=== PATIENT | female | born 1950 | race Caucasian/White ===

== ENCOUNTER → 2016-07-27 | Outpatient (CLI) | payer BC | END | disposition home or self-care (01) | LOC: C.PAPS 14:02 | PROVIDERS: ATTEND Obstetrics & Gynecology | DX: Z01.419 Encounter for gynecological examination (general) (routine) without abnormal findings (principal) ==

== ENCOUNTER → 2016-07-29 | Outpatient (CLI) | payer BC ==
--- NOTE | 2016-08-01 14:25 | MAMMOGRAPHY REPORT ---
BILATERAL DIGITAL SCREENING MAMMOGRAM WITH CAD: 07/29/2016 CLINICAL HISTORY: Routine screening. Patient has no complaints. TECHNIQUE: Current study was also evaluated with a Computer Aided Detection (CAD) system. Bilatera l CC and MLO views were obtained. COMPARISON: Comparison is made to exams dated: 03/10/2014 mammogram, 01/23/2013 mammogram, 01/18/20 12 mammogram, 01/18/2012 ultrasound, 01/11/2012 mammogram, and 12/08/2010 mammogram. BREAST COMPOSITION: There are scattered areas of fibroglandular density in both breasts. FINDINGS: No suspicious masses, calcifications, or areas of architectural distortion are noted in e ither breast. There has been no significant interval change compared to prior exams. Bilateral asym metries are stable, including an asymmetry in the right upper outer quadrant and asymmetry in the le ft superior breast which are stable dating back to at least the 2010 and 2011 exams. IMPRESSION: ACR BI-RADS CATEGORY 2: BENIGN There is no mammographic evidence of malignancy. A 1 year screening mammogram is recommended. The p atient will receive written notification of the results. Approximately 10% of breast cancers are not detected with mammography. A negative mammographic repor t should not delay biopsy if a clinically suggestive mass is present. Krissy Ferrell M.D. ah/:07/29/2016 15:23:40 Rn Picu: Delfino JOHNSON)(Shahrzad), [facility] letter sent: Normal 1/2 BI-RADS Code: ACR BI-RADS Category 2: Benign
== END | disposition home or self-care (01) ==
LOC: C.MAMM 10:00
PROVIDERS: ATTEND Obstetrics & Gynecology
DX: Z12.31 Encounter for screening mammogram for malignant neoplasm of breast (principal)

== ENCOUNTER → 2017-08-01 | Outpatient (CLI) | payer OTHER, BC ==
--- NOTE | 2017-08-01 15:12 | MAMMOGRAPHY REPORT ---
BILATERAL DIGITAL SCREENING MAMMOGRAM TOMOSYNTHESIS WITH CAD: 08/01/2017 CLINICAL HISTORY: Routine screening. Patient has no complaints. TECHNIQUE: Breast tomosynthesis in addition to standard 2D mammography was performed. Current study was also evaluated with a Computer Aided Detection (CAD) system. COMPARISON: Comparison is made to exams dated: 07/29/2016 mammogram, 07/27/2015 mammogram - [facility], 03/10/2014 mammogram, 01/23/2013 mammogram, 01/18/2012 mammogram, and 01/18/2012 ul trasound. BREAST COMPOSITION: There are scattered areas of fibroglandular density in both breasts. FINDINGS: The parenchymal pattern is unchanged. No developing mass, architectural distortion or clus ter of suspicious microcalcifications is seen in either breast. IMPRESSION: ACR BI-RADS CATEGORY 2: BENIGN There is no mammographic evidence of malignancy. A 1 year screening mammogram is recommended. The pa tient will receive written notification of the results. Approximately 10% of breast cancers are not detected with mammography. A negative mammographic report should not delay biopsy if a clinically suggestive mass is present. Azra Cintron M.D. ay/:08/01/2017 11:55:30 Heater Engineer Helper: Fernie Bautista M, [facility] letter sent: Normal 1/2 BI-RADS Code: ACR BI-RADS Category 2: Benign
== END | disposition home or self-care (01) ==
LOC: C.MAMM 10:00
PROVIDERS: ATTEND Obstetrics & Gynecology
DX: Z12.31 Encounter for screening mammogram for malignant neoplasm of breast (principal)

== ENCOUNTER → 2017-08-02 | Outpatient (CLI) | payer OTHER, BC | END | disposition home or self-care (01) | LOC: C.PAPS 11:54 | PROVIDERS: ATTEND Obstetrics & Gynecology | DX: Z12.4 Encounter for screening for malignant neoplasm of cervix (principal) ==

== ENCOUNTER 2024-05-24 17:37 | Inpatient (IN) ==
--- NOTE | 2024-05-24 18:30 | XRay Report ---
EXAM: Portable AP chest radiograph TECHNIQUE: AP portable radiograph of the chest was obtained. INDICATION: Shortness of breath Comparison: None FINDINGS: LINES and TUBES: None CARDIOVASCULAR: Cardiac silhouette is enlarged in size. LUNGS/PLEURA: Mild pulmonary vascular congestion. Chronic interstitial lung changes. No focal consolidation identified. No significant pleural fluid. No discernible pneumothorax. OSSEOUS/OTHER: No displaced acute osseous process identified. IMPRESSION: Mild congestive changes of the cardiovascular system. Electronically signed by Paul Dorantes 05-24-2024 6:30 PM
[2024-05-24 18:41] LABS: Basophils # (auto) 0.03 K/uL (0.00-0.20); Basophils % (auto) 0.4 %; Eosinophils # (auto) 0.12 K/uL (0.00-0.50); Eosinophils % (auto) 1.8 %; Hematocrit (blood only) 38.8 % (37.0-47.0); Hemoglobin 12.9 g/dl (12.0-16.0); Immature Granulocytes # (auto) 0.03 K/uL (0.01-0.20); Immature Granulocytes % (auto) 0.4 %; Lymphocytes # (auto) 1.59 K/uL (1.20-3.40); Lymphocytes % (auto) 23.3 %; Mean Corpuscular Hemoglobin 31.2 pg (25.0-34.0); Mean Corpuscular Hgb Conc 33.2 g/dL (32.0-36.0); Mean Corpuscular Volume 93.9 fL (80.0-100.0); Mean Platelet Volume 9.9 fL (9.4-12.4); Monocytes # (auto) 0.55 K/uL (0.11-0.59); Monocytes % (auto) 8.1 %; Platelet Count 195 K/uL (130-400); RDW Coefficient of Variation 13.6 % (11.5-14.5); RDW Standard Deviation 46.6 fL (36.4-46.3); Red Blood Count 4.13 M/uL (4.20-5.40); White Blood Count 6.82 K/ul (4.8-10.8)
[2024-05-24 18:48] LABS: Albumin Globulin Ratio 2.1 (0.9-2); BUN Creatinine Ratio 17.1 (10-20); Calcium 10.5 mg/dl (8.6-10.3); Creatinine Clr Calc Pharmacy 34.4 ml/min; Globulin 2.4 gm/dl (2.5-4.0); Potassium 4.3 mmol/L (3.5-5.1); Total Protein 7.4 gm/dl (6.0-8.3)
[2024-05-24 19:13] LABS: Adenovirus PCR Not Detected (NotDetected); Bordetella parapertussis PCR Not Detected (NotDetected); Bordetella pertussis PCR Not Detected (NotDetected); Chlamydia pneumoniae PCR Not Detected (NotDetected); Coronavirus 229E PCR Not Detected (NotDetected); Coronavirus CoV-2 (COVID19)PCR Not Detected (NotDetected); Coronavirus HKU1 PCR Not Detected (NotDetected); Coronavirus NL63 PCR Not Detected (NotDetected); Coronavirus OC43PCR Not Detected (NotDetected); Human Metapneumovirus PCR Not Detected (NotDetected); Influenza A PCR Not Detected (NotDetected); Influenza B PCR Not Detected (NotDetected); Mycoplasma pneumoniae PCR Not Detected (NotDetected); Parainfluenza Virus 1 PCR Not Detected (NotDetected); Parainfluenza Virus 2 PCR Not Detected (NotDetected); Parainfluenza Virus 3 PCR Not Detected (NotDetected); Parainfluenza Virus 4 PCR Not Detected (NotDetected); Respiratory Syncytial VirusPCR Not Detected (NotDetected); Rhinovirus/Enterovirus PCR Not Detected (NotDetected)
--- NOTE | 2024-05-24 20:52 | Emergency Department Note ---
Impression & Plan Bradycardia, SOB (shortness of breath), Junctional bradycardia, Congestive heart failure ED Provider Note NAME: URSULA VARGAS AGE: 73 SEX: F : 1950 ARRIVES VIA: Walk-In INFORMANT: Patient, ED PROVIDER(S): Dusty Jarquin MD CHIEF COMPLAINT: Weakness, shortness of breath HPI: This is a 73-year-old female presenting for weakness/shortness of breath. Patient states with the past 1 week she has noted increasing difficulty with ambulation. She notes exertional dyspnea. She was referred here from urgent care for a "lousy O2 saturation ". She notes no nausea or vomiting. She has no shortness of breath without fevers. Does not feel like she is sick. She has not had a sick contacts either. No chest pain, leg swelling or pleurisy. ROS: See above HPI for pertinent positives & negatives. A total of 10 systems reviewed and were otherwise negative. PAST MEDICAL HISTORY: See Below PAST SURGICAL HISTORY: See Below FAMILY HISTORY: See Below SOCIAL HISTORY: See Below HOME MEDICATIONS: See Below ALLERGIES: See Below VITALS: See Below PHYSICAL EXAMINATION: General: resting comfortably in no acute distress Head: Normocephalic and atraumatic Eyes: Normal inspection, extraocular muscles intact Ear, nose, throat: Normal external exam Neck: Normal range of motion Respiratory: lungs clear to auscultation bilaterally Cardiovascular: Bradycardic regular rate/rhythm, no murmur GI: soft, nontender, no guarding or rebound Extremities: nontender, moves all extremities Neuro: The patient awake and alert, appropriately conversive, no focal deficits, symmetric faces Skin: Warm, dry, and intact MEDICAL DECISION MAKING: This is a 71-year-old female present for shortness breath/weakness. Patient appears to be in junctional rhythm. She does mention this is chronic however she has not had symptoms from this. Her heart rates between 29 and 40. -ECG independently interpreted by me with junctional rhythm at a rate of 31, normal QRS, normal QTc, no ST segment elevations consistent with STEMI criteria -Chest x-ray shows congestion -Bloodwork is reviewed showing no significant leukocytosis, anemia, electrolyte or creatinine abnormality -At this time patient has junctional rhythm, unclear if this is related to her significant shortness of breath. Due to the current symptoms, will admit as she has junctional rhythm, shortness of breath, congestion changes on CXR Differential diagnosis: Bradycardia, heart failure, CHF, PE, ACS Independent History obtained from: Diagnostics interpreted by me: ECG: See above Cardiac Monitoring: An order was placed for continuous cardiac monitoring. The monitor shows a rate of 31 and a junctional rhythm. Past Med/Surg History Problem List (Updated 05/25/24 @ 01:18 by Dusty Jarquin MD) Congestive heart failure (Acute) Junctional bradycardia (Acute) Bradycardia (Acute) SOB (shortness of breath) (Acute) Social History Smoking Status: Never smoker Preferred Language: Faroese Feels Safe at Home: Yes Home Meds Home Medications Medication Instructions Recorded Confirmed aripiprazole 20 mg tablet 20 mg PO DAILY 05/24/24 05/24/24 fluoxetine 20 mg capsule 20 mg PO DAILY 05/24/24 05/24/24 furosemide 20 mg tablet 20 mg PO QAM 05/24/24 05/24/24 glucosamine sulf dipot 1 cap PO DAILY 05/24/24 05/24/24 chlr,msm,chond 550 mg-C 30 mg-elvie 1 mg capsule (Glucosamine Chondroitin) lamotrigine 200 mg tablet 200 mg PO HS 05/24/24 05/24/24 levothyroxine 88 mcg tablet 88 mcg PO QAM 05/24/24 05/24/24 melatonin 1 mg tablet 1 mg PO HS PRN Sleep 05/24/24 05/24/24 olmesartan 40 mg tablet 40 mg PO DAILY 05/24/24 05/24/24 timolol maleate 0.5 % eye drops 2 drp ophthalmic (eye) DAILY 05/24/24 05/24/24 Results & Data (ED) Vital Signs Vital Signs - 24 hr 05/24/24 17:51 05/24/24 18:30 05/24/24 18:32 Temperature 36.3 C L Temperature Source Temporal Artery Scan Pulse Rate 39 L 37 L Pulse Rate [Apical] Pulse Rate from SpO2 Sensor Respiratory Rate 18 16 Respiratory Effort / Characteristics Non-Labored Spontaneous SOB on Exertion Respiratory Depth Normal Respiratory Pattern Regular Blood Pressure 175/79 H 179/88 H Blood Pressure [Right Arm] Blood Pressure Mean 111 126 Blood Pressure Mean [Right Arm] Pulse Oximetry 96 Oxygen Delivery Method Room Air Sepsis Recent Fever Within 48 Hours No Sepsis New/Unexplained Change in Mental Status No Sepsis Action Taken by Nursing No Action Required 05/24/24 18:32 02/28/25 18:45 05/24/24 18:46 Temperature Temperature Source Pulse Rate 33 L 39 L Pulse Rate [Apical] Pulse Rate from SpO2 Sensor 38 L Respiratory Rate 16 Respiratory Effort / Characteristics Respiratory Depth Respiratory Pattern Blood Pressure 179/91 H Blood Pressure [Right Arm] Blood Pressure Mean 143 Blood Pressure Mean [Right Arm] Pulse Oximetry 97 Oxygen Delivery Method Room Air Sepsis Recent Fever Within 48 Hours Sepsis New/Unexplained Change in Mental Status Sepsis Action Taken by Nursing 05/24/24 19:38 05/24/24 19:38 05/24/24 19:54 Temperature Temperature Source Pulse Rate 33 L Pulse Rate [Apical] 30 L Pulse Rate from SpO2 Sensor Respiratory Rate 18 20 Respiratory Effort / Characteristics Non-Labored Spontaneous Respiratory Depth Normal Respiratory Pattern Regular Blood Pressure Blood Pressure [Right Arm] 121/55 L Blood Pressure Mean Blood Pressure Mean [Right Arm] 77 Pulse Oximetry 94 94 93 Oxygen Delivery Method Room Air Room Air Room Air Sepsis Recent Fever Within 48 Hours Sepsis New/Unexplained Change in Mental Status Sepsis Action Taken by Nursing 05/24/24 21:00 Temperature Temperature Source Pulse Rate Pulse Rate [Apical] 31 L Pulse Rate from SpO2 Sensor Respiratory Rate 18 Respiratory Effort / Characteristics Non-Labored Spontaneous Respiratory Depth Normal Respiratory Pattern Regular Blood Pressure Blood Pressure [Right Arm] 143/71 H Blood Pressure Mean Blood Pressure Mean [Right Arm] 95 Pulse Oximetry 98 Oxygen Delivery Method Room Air Sepsis Recent Fever Within 48 Hours Sepsis New/Unexplained Change in Mental Status Sepsis Action Taken by Nursing Laboratory Data 05/24/24 18:10 05/24/24 18:10 Lab Results 05/24/24 05/24/24 Range/Units 18:10 18:16 WBC 6.82 (4.8-10.8) K/ul RBC 4.13 L (4.20-5.40) M/uL Hgb 12.9 (12.0-16.0) g/dl Hct 38.8 (37.0-47.0) % MCV 93.9 (80.0-100.0) fL MCH 31.2 (25.0-34.0) pg MCHC 33.2 (32.0-36.0) g/dL RDW Std Deviation 46.6 H (36.4-46.3) fL RDW Coeff of Mauricio 13.6 (11.5-14.5) % Plt Count 195 (130-400) K/uL MPV 9.9 (9.4-12.4) fL Immature Gran % (Auto) 0.4 % Neut % (Auto) 66.0 % Lymph % (Auto) 23.3 % [place] % (Auto) 8.1 % Eos % (Auto) 1.8 % Baso % (Auto) 0.4 % Neut # (Auto) 4.50 (1.40-6.50) K/uL Lymph # (Auto) 1.59 (1.20-3.40) K/uL [place] # (Auto) 0.55 (0.11-0.59) K/uL Eos # (Auto) 0.12 (0.00-0.50) K/uL Baso # (Auto) 0.03 (0.00-0.20) K/uL Immature Gran # (Auto) 0.03 (0.01-0.20) K/uL Sodium 135 L (136-145) mmol/L Potassium 4.3 (3.5-5.1) mmol/L Chloride 100 (98-107) mmol/L Carbon Dioxide 28 (21-32) mmol/L Anion Gap 7 (3-11) BUN 21 (6-23) mg/dl Creatinine 1.23 H (0.6-1.2) mg/dl Est Cr Clr Drug Dosing 34.4 ml/min eGFR 46.69 BUN/Creatinine Ratio 17.1 (10-20) Glucose 94 (70-99(Fasting)) mg/dl Calcium 10.5 H (8.6-10.3) mg/dl Magnesium 2.2 (1.7-2.4) mg/dl Total Bilirubin 1.0 (0.2-1.0) mg/dl AST 29 (13-39) U/L ALT 30 (7-52) U/L Alkaline Phosphatase 114 H (34-104) U/L Troponin I High Sens 22.2 H (0-14) pg/ml Total Protein 7.4 (6.0-8.3) gm/dl Albumin 5.0 (3.4-5.0) gm/dl Globulin 2.4 L (2.5-4.0) gm/dl Albumin/Globulin Ratio 2.1 H (0.9-2) TSH 4.661 H (0.300-4.500) uIu/ml Free T4 1.20 (0.61-1.60) ng/dl Adenovirus (PCR) Not Detected (NotDetected) B. pertussis DNA (PCR) Not Detected (NotDetected) B.parapertussis DNA PCR Not Detected (NotDetected) C. pneumoniae DNA (PCR) Not Detected (NotDetected) Coronavirus OC43 (PCR) Not Detected (NotDetected) Coronavirus HKU1 (PCR) Not Detected (NotDetected) Coronavirus 229E (PCR) Not Detected (NotDetected) SARS-CoV-2 (PCR) Not Detected (NotDetected) Coronavirus NL63 (PCR) Not Detected (NotDetected) Human Metapneumovir PCR Not Detected (NotDetected) Influenza Type A (PCR) Not Detected (NotDetected) Influenza Type B (PCR) Not Detected (NotDetected) M. pneumoniae (PCR) Not Detected (NotDetected) Parainfluenza 1 (PCR) Not Detected (NotDetected) Parainfluenza 2 (PCR) Not Detected (NotDetected) Parainfluenza 3 (PCR) Not Detected (NotDetected) Parainfluenza 4 (PCR) Not Detected (NotDetected) RSV (PCR) Not Detected (NotDetected) Entero/Rhino (PCR) Not Detected (NotDetected) Administered Medications Ioversol (Optiray 320 125ml) 82 ml IV ONCE ONE Stop: 05/25/24 00:58 Last Admin: 05/25/24 00:57 Dose: 82 ml Documented By: PLW Imaging Data Radiologist's Impression: Chest X-Ray 05/24/24 17:56 EXAM: Portable AP chest radiograph TECHNIQUE: AP portable radiograph of the chest was obtained. INDICATION: Shortness of breath Comparison: None FINDINGS: LINES and TUBES: None CARDIOVASCULAR: Cardiac silhouette is enlarged in size. LUNGS/PLEURA: Mild pulmonary vascular congestion. Chronic interstitial lung changes. No focal consolidation identified. No significant pleural fluid. No discernible pneumothorax. OSSEOUS/OTHER: No displaced acute osseous process identified. IMPRESSION: Mild congestive changes of the cardiovascular system. Electronically signed by Paul Dorantes 05-24-2024 6:30 PM Discharge Plan Visit Data Chief Complaint: Shortness of Breath/Dyspnea Stated Complaint: SOB, REFERRED BY URGENT CARE FOR LOW O2 ED Provider: Dusty Jarquin Discharge Problem: Bradycardia, SOB (shortness of breath), Junctional bradycardia, Congestive heart failure
[2024-05-24 22:44] LABS: Magnesium 2.2 mg/dl (1.7-2.4)
[2024-05-24 22:51] LABS: Troponin I High Sensitivity 22.2 pg/ml (0-14)
--- NOTE | 2024-05-24 22:52 | History & Physical Report ---
Date of Service May 24, 2024 Assessment & Plan (1) SOB (shortness of breath): Plan: 73-year-old female with past medically history significant for hypothyroidism, prediabetes, hypertension, bradycardia, rectal prolapse, bilateral low-tension glaucoma mild stage, depression presents with shortness of breath. Patient states since last Monday was feeling short of breath. Climbing half flight of stairs making her short of breath. She is still going to the gym. Able to walk okay in the gym. Today she was in the gym and did some light weights and felt very exhausted. Denies any cough. Denies fevers. No runny nose or sore throat. No headache. No dizziness. Since last couple of weeks she has some blurred vision but seems it is getting better. No runny nose or sore throat. Denies any chest pain. No nausea. No abdominal pain. Appetite is okay. No difficulty swallowing. Normal bladder movements. Patient states since last few months she is having diarrhea in the morning 3-4 times. And she is almost taking loperamide every day. States she has chronic bradycardia with junctional rhythm. As per records since 2017 she was diagnosed with asymptomatic junctional rhythm. Thought to be from long use of lithium. With discont inuation of lithium depression worsened and also heart rates did not improved so lithium was restarted. But currently she is on Lamictal and lithium is stopped. As per the records she declined permanent pacemaker placement in the past. Her resting heart rates usually In the 40s and sometimes 30s per records.But with activity heart rates improve as per patient. Shortness of breath Since last Monday Chest x-ray possible congestion No obvious edema on exam Will follow BNP Will follow troponins Telemetry Echo Junctional bradycardia Seems chronic Usually resting heart rates in 30s and 40s and improves with activity Thought to be from lithium Currently off of lithium Telemetry Will follow echo Cardiac consult came in am for further recommendations Hypothyroidism On Synthyroid Will follow TSH [facility] Creatinine 1.2 Baseline creatinine 1-1.1 Will follow repeat labs If worsening will hold Lasix and olmesartan Hypertension On Lasix and olmesartan Will monitor Prediabetes Will follow HbA1c levels Depression On aripiprazole and Lamictal DVT prophylaxis SCDs for now Disposition Telemetry Full code Addendum; D dmier is 700. CTA chest done and shows no PE.Shows possible PAH. Also subsegmental collapse of lower lobes and possible altered perfusion/small vessel disease. Will also follow Doppler. History of Present Illness Chief Complaint: Shortness of breath Primary Care Provider: Zafar Meza DO 73-year-old female with past medically history significant for hypothyroidism, prediabetes, hypertension, bradycardia, rectal prolapse, bilateral low-tension glaucoma mild stage, depression presents with shortness of breath. Patient states since last Monday was feeling short of breath. Climbing half flight of stairs making her short of breath. She is still going to the gym. Able to walk okay in the gym. Today she was in the gym and did some light weights and felt very exhausted. Denies any cough. Denies fevers. No runny nose or sore throat. No headache. No dizziness. Since last couple of weeks she has some blurred vision but seems it is getting better. No runny nose or sore throat. Denies any chest pain. No nausea. No abdominal pain. Appetite is okay. No difficulty swallowing. Normal bladder movements. Patient states since last few months she is having diarrhea in the morning 3-4 times. And she is almost taking loperamide every day. States she has chronic bradycardia with junctional rhythm. As per records since 2017 she was diagnosed with asymptomatic junctional rhythm. Thought to be from long use of lithium. With discontinuation of lithium depression worsened and also heart rates did not improved so lithium was restarted. But currently she is on Lamictal and lithium is stopped. As per the records she declined permanent pacemaker placement in the past. Her resting heart rates usually In the 40s and sometimes 30s per records.But with activity heart rates improve as per patient. Past medical history. As mentioned above. Past surgical history. Colonoscopy. EGD. Excision of rectal prolapse. Robotic laparoscopic proctopexy. Social history. . No smoking. Currently no alcohol use. No drug use. Family history. Mother had bipolar disorder. Brother has gout. Allergies Allergy/AdvReac Type Severity Reaction Status Date / Time griseofulvin Allergy Mild Rash Verified 05/25/24 02:00 Home Medications Medication Instructions Recorded Confirmed Type aripiprazole 20 mg tablet 20 mg PO DAILY 05/24/24 05/24/24 History fluoxetine 20 mg capsule 20 mg PO DAILY 05/24/24 05/24/24 History furosemide 20 mg tablet 20 mg PO QAM 05/24/24 05/24/24 History glucosamine sulf dipot 1 cap PO DAILY 05/24/24 05/24/24 History chlr,msm,chond 550 mg-C 30 mg-elvie 1 mg capsule (Glucosamine Chondroitin) lamotrigine 200 mg tablet 200 mg PO HS 05/24/24 05/24/24 History levothyroxine 88 mcg tablet 88 mcg PO QAM 05/24/24 05/24/24 History melatonin 1 mg tablet 1 mg PO HS PRN Sleep 05/24/24 05/24/24 History olmesartan 40 mg tablet 40 mg PO DAILY 05/24/24 05/24/24 History timolol maleate 0.5 % eye drops 2 drp ophthalmic (eye) DAILY 05/24/24 05/24/24 History Past Med/Surg History Problem List (Updated 05/25/24 @ 01:18 by Dusty Jarquin MD) Congestive heart failure (Acute) Junctional bradycardia (Acute) Bradycardia (Acute) SOB (shortness of breath) (Acute) Social History Smoking Status: Never smoker Hx Alcohol Use: Yes Hx Substance Use: No Preferred Language: [place] Communication Ability: Effective Glass Cut Off Tender Required: No Beliefs That Will Affect Care: Protestant Protestant Beliefs: Christianity Current Living Situation: Spouse Feels Safe at Home: Yes Safety Concerns: Feels Safe At This Time Review of Systems Review of Systems: All systems reviewed & are unremarkable except as noted in HPI & below Physical Exam Physical Exam: General- Not in distress Head- atraumatic Eyes- PERRL. ENT- oropharynx clear Neck- supple, no JVD. Lungs- clear to auscultation no wheezing or crackles Heart- regular rhythm;bradycardia, no murmur, . Abdomen- normal bowel sounds, soft, nontender, no distension Extremities- no pretibial edema, no erythema seen Neuro- alert, oriented PERRL, no facial palsy; no dysarthria; moves extremities. Results & Data Results & Data Vital Signs (Past 12 Hours) Vital Signs Temp Pulse Pulse Resp BP BP Pulse Ox 05/24/24 21:00 31 L 18 143/71 H 98 05/24/24 19:54 30 L 20 121/55 L 93 05/24/24 19:38 33 L 18 94 05/24/24 19:38 94 05/24/24 18:46 179/91 H 05/24/24 18:45 39 L 16 97 05/24/24 18:32 33 L 05/24/24 18:32 179/88 H 05/24/24 18:30 37 L 16 05/24/24 17:51 36.3 C L 39 L 18 175/79 H 96 O2 Del Method 05/24/24 21:00 Room Air 05/24/24 19:54 Room Air 05/24/24 19:38 Room Air 05/24/24 19:38 Room Air 05/24/24 18:46 05/24/24 18:45 Room Air 05/24/24 18:32 05/24/24 18:32 05/24/24 18:30 05/24/24 17:51 Room Air Diagnostic Findings Laboratory Results WBC 6.82 K/ul (4.8-10.8) 05/24/24 18:10 RBC 4.13 M/uL (4.20-5.40) L 05/24/24 18:10 Hgb 12.9 g/dl (12.0-16.0) 05/24/24 18:10 Hct 38.8 % (37.0-47.0) 05/24/24 18:10 MCV 93.9 fL (80.0-100.0) 05/24/24 18:10 MCH 31.2 pg (25.0-34.0) 05/24/24 18:10 MCHC 33.2 g/dL (32.0-36.0) 05/24/24 18:10 RDW Std Deviation 46.6 fL (36.4-46.3) H 05/24/24 18:10 RDW Coeff of Mauricio 13.6 % (11.5-14.5) 05/24/24 18:10 Plt Count 195 K/uL (130-400) 05/24/24 18:10 MPV 9.9 fL (9.4-12.4) 05/24/24 18:10 Immature Gran % (Auto) 0.4 % 05/24/24 18:10 Neut % (Auto) 66.0 % 05/24/24 18:10 Lymph % (Auto) 23.3 % 05/24/24 18:10 Briscoe % (Auto) 8.1 % 05/24/24 18:10 Eos % (Auto) 1.8 % 05/24/24 18:10 Baso % (Auto) 0.4 % 05/24/24 18:10 Neut # (Auto) 4.50 K/uL (1.40-6.50) 05/24/24 18:10 Lymph # (Auto) 1.59 K/uL (1.20-3.40) 05/24/24 18:10 Briscoe # (Auto) 0.55 K/uL (0.11-0.59) 05/24/24 18:10 Eos # (Auto) 0.12 K/uL (0.00-0.50) 05/24/24 18:10 Baso # (Auto) 0.03 K/uL (0.00-0.20) 05/24/24 18:10 Immature Gran # (Auto) 0.03 K/uL (0.01-0.20) 05/24/24 18:10 Sodium 135 mmol/L (136-145) L 05/24/24 18:10 Potassium 4.3 mmol/L (3.5-5.1) 05/24/24 18:10 Chloride 100 mmol/L (98-107) 05/24/24 18:10 Carbon Dioxide 28 mmol/L (21-32) 05/24/24 18:10 Anion Gap 7 (3-11) 05/24/24 18:10 BUN 21 mg/dl (6-23) 05/24/24 18:10 Creatinine 1.23 mg/dl (0.6-1.2) H 05/24/24 18:10 Est Cr Clr Drug Dosing 34.4 ml/min 05/24/24 18:10 eGFR 46.69 05/24/24 18:10 BUN/Creatinine Ratio 17.1 (10-20) 05/24/24 18:10 Glucose 94 mg/dl (70-99(Fasting)) 05/24/24 18:10 Calcium 10.5 mg/dl (8.6-10.3) H 05/24/24 18:10 Magnesium 2.2 mg/dl (1.7-2.4) 05/24/24 18:10 Total Bilirubin 1.0 mg/dl (0.2-1.0) 05/24/24 18:10 AST 29 U/L (13-39) 05/24/24 18:10 ALT 30 U/L (7-52) 05/24/24 18:10 Alkaline Phosphatase 114 U/L (34-104) H 05/24/24 18:10 Troponin I High Sens 22.2 pg/ml (0-14) H 05/24/24 18:10 Total Protein 7.4 gm/dl (6.0-8.3) 05/24/24 18:10 Albumin 5.0 gm/dl (3.4-5.0) 05/24/24 18:10 Globulin 2.4 gm/dl (2.5-4.0) L 05/24/24 18:10 Albumin/Globulin Ratio 2.1 (0.9-2) H 05/24/24 18:10 Adenovirus (PCR) Not Detected (NotDetected) 05/24/24 18:16 B. pertussis DNA (PCR) Not Detected (NotDetected) 05/24/24 18:16 B.parapertussis DNA PCR Not Detected (NotDetected) 05/24/24 18:16 C. pneumoniae DNA (PCR) Not Detected (NotDetected) 05/24/24 18:16 Coronavirus OC43 (PCR) Not Detected (NotDetected) 05/24/24 18:16 Coronavirus HKU1 (PCR) Not Detected (NotDetected) 05/24/24 18:16 Coronavirus 229E (PCR) Not Detected (NotDetected) 05/24/24 18:16 SARS-CoV-2 (PCR) Not Detected (NotDetected) 05/24/24 18:16 Coronavirus NL63 (PCR) Not Detected (NotDetected) 05/24/24 18:16 Human Metapneumovir PCR Not Detected (NotDetected) 05/24/24 18:16 Influenza Type A (PCR) Not Detected (NotDetected) 05/24/24 18:16 Influenza Type B (PCR) Not Detected (NotDetected) 05/24/24 18:16 M. pneumoniae (PCR) Not Detected (NotDetected) 05/24/24 18:16 Parainfluenza 1 (PCR) Not Detected (NotDetected) 05/24/24 18:16 Parainfluenza 2 (PCR) Not Detected (NotDetected) 05/24/24 18:16 Parainfluenza 3 (PCR) Not Detected (NotDetected) 05/24/24 18:16 Parainfluenza 4 (PCR) Not Detected (NotDetected) 05/24/24 18:16 RSV (PCR) Not Detected (NotDetected) 05/24/24 18:16 Entero/Rhino (PCR) Not Detected (NotDetected) 05/24/24 18:16 Impressions Chest X-Ray 05/24/24 17:56 EXAM: Portable AP chest radiograph TECHNIQUE: AP portable radiograph of the chest was obtained. INDICATION: Shortness of breath Comparison: None FINDINGS: LINES and TUBES: None CARDIOVASCULAR: Cardiac silhouette is enlarged in size. LUNGS/PLEURA: Mild pulmonary vascular congestion. Chronic interstitial lung changes. No focal consolidation identified. No significant pleural fluid. No discernible pneumothorax. OSSEOUS/OTHER: No displaced acute osseous process identified. IMPRESSION: Mild congestive changes of the cardiovascular system. Electronically signed by Paul Dorantes 05-24-2024 6:30 PM ECG Additional Comments: ECG junctional bradycardia at rate of 33. QTc 276 Code Status & VTE Plan VTE Prophylaxis Plan VTE Prophylaxis will be ordered: Yes
[2024-05-24 23:01] LABS: Thyroid Stimulating Hormone 4.661 uIu/ml (0.300-4.500)
[2024-05-24 23:35] LABS: T4 Free Thyroxine 1.2 ng/dl (0.61-1.60)
[2024-05-24] MEDS ORDERED: NITROGLYCERIN SL 0.4 MG/TAB TAB SL PRN (23:46)
[2024-05-25 00:16] LABS: D Dimer 700 ug/L FEU (0-500)
[2024-05-25] MEDS: OPTIRAY 320 125ml IV ONE (00:57)
[2024-05-25 01:21] LABS: Appearance Urine Clear (Clear); Bacteria Urine Automated None Seen (None Seen); Bilirubin Urine Negative (Negative); Blood Urine Negative (Negative); Cast Urine Automated 0-2 /lpf (0-2); Color Urine Yellow; Glucose Urine UA Negative (Negative); Ketones Urine Negative (Negative); Leukocyte Esterase Urine 3+ (Negative); Nitrite Urine Negative (Negative); Protein Urine Negative (Negative); RBC Urine Automated 0-2 /hpf (0-2); Specific Gravity Urine 1.011 (1.000-1.030); Urobilinogen Urine Negative (Negative); WBC Urine Automated >50 /hpf (0-5); pH Urine 6.5 (4.5-7.5)
[2024-05-25] MEDS: Patient's ALLERGY Info needs ENTERED STA (02:01)
[2024-05-25] MEDS ORDERED: MELATONIN 3 MG TAB PO PRN (02:17)
--- NOTE | 2024-05-25 02:34 | CT Scan Report ---
EXAM: CT angio chest PE protocol CLINICAL HISTORY: PE TECHNIQUE: Contiguous axial images were obtained from the neck base through the upper abdomen following intravenous administration of iodinated contrast material. If IV contrast material had not been administered, the likelihood of detecting abnormalities relevant to the patient's condition would have been substantially decreased. Coronal and sagittal 3-D MIPs were likewise performed and indicated to increase the sensitivity of detecting clinically relevant pathology. CT scan was performed according to ALARA (as low as reasonable achievable). COMPARISON: none. FINDINGS: Mild dilatation of pulmonary trunk ,bilateral main pulmonary artery up to subsegmental level with mild tortuosity - suggest possibility of pulmonary arterial hypertension. MPA measures approximately 39 mm, right branch 27 mm and left branch 21 mm. Minimal right side pleural effusion with basal subsegmental collapse of lower lobes are seen Mild cardiomegaly with dialed IVC and hepatic vein showing contrast reflux - possibility of tricuspid regurgitation. Mosaic attenuation noted in bilateral lung parenchyma due to multiple hypoattenuating areas showing narrowing of vessels - possibly because of altered perfusion/small vessel disease. Adequate contrast bolus without evidence of pulmonary embolism. The central airways are patent. The aorta is of normal size and configuration. There are coronary artery and aortic atherosclerotic calcifications. No pericardial effusion is identified. The thyroid is unremarkable. No mediastinal, hilar, or axillary lymphadenopathy is noted. No suspicious lytic or sclerotic osseous lesions are identified. IMPRESSION: 1. No evidence of pulmonary embolism. 2. Mild dilatation of pulmonary trunk ,bilateral main pulmonary artery up to subsegmental level with mild tortuosity - suggest possibility of pulmonary arterial hypertension. 3. Minimal right side pleural effusion with basal subsegmental collapse of lower lobes are seen 4. Mild cardiomegaly with dialed IVC and hepatic vein- showing contrast reflux - possibility of tricuspid regurgitation. 5. Mosaic attenuation noted in bilateral lung parenchyma due to multiple hypoattenuating areas showing narrowing of vessels - possibly because of altered perfusion/small vessel disease. Electronically signed by Steve Handy 05-25-2024 02:33 AM
[2024-05-25] MEDS: LEVOTHYROXINE SODIUM 88 MCG TABLET PO SCH (05:43)
[2024-05-25 05:51] LABS: Basophils # (auto) 0.02 K/uL (0.00-0.20); Basophils % (auto) 0.4 %; Eosinophils # (auto) 0.09 K/uL (0.00-0.50); Eosinophils % (auto) 1.7 %; Hemoglobin 11.2 g/dl (12.0-16.0); Immature Granulocytes # (auto) 0.01 K/uL (0.01-0.20); Immature Granulocytes % (auto) 0.2 %; Lymphocytes # (auto) 1.27 K/uL (1.20-3.40); Lymphocytes % (auto) 24.5 %; Mean Corpuscular Hemoglobin 31.1 pg (25.0-34.0); Mean Corpuscular Hgb Conc 32.9 g/dL (32.0-36.0); Mean Corpuscular Volume 94.4 fL (80.0-100.0); Mean Platelet Volume 9.5 fL (9.4-12.4); Monocytes # (auto) 0.45 K/uL (0.11-0.59); Monocytes % (auto) 8.7 %; Neutrophils # (auto) 3.34 K/uL (1.40-6.50); Neutrophils % (auto) 64.5 %; Platelet Count 146 K/uL (130-400); RDW Coefficient of Variation 13.6 % (11.5-14.5); RDW Standard Deviation 46.5 fL (36.4-46.3); White Blood Count 5.18 K/ul (4.8-10.8)
[2024-05-25 06:06] LABS: BUN Creatinine Ratio 14.5 (10-20); Calcium 9.1 mg/dl (8.6-10.3); Creatinine Clr Calc Pharmacy 35.5 ml/min; Potassium 4.3 mmol/L (3.5-5.1)
--- NOTE | 2024-05-25 07:23 | Hospitalist Progress Note ---
Date of Service May 25, 2024 Assessment & Plan (1) SOB (shortness of breath): Plan: 73-yo F w/ hypothyroidism, prediabetes, hypertension, bradycardia, rectal prolapse, bilateral low-tension glaucoma mild stage, depression presents with shortness of breath. Patient states since last Monday was feeling short of breath. Climbing half flight of stairs making her short of breath. She is still going to the gym. Able to walk okay in the gym. Today she was in the gym and did some light weights and felt very exhausted. Denies any cough. Denies fevers. No runny nose or sore throat. No headache. No dizziness. Since last couple of weeks she has some blurred vision but seems it is getting better. No runny nose or sore throat. Denies any chest pain. No nausea. No abdominal pain. Appetite is okay. No difficulty swallowing. Normal bladder movements. Patient states since last few months she is having diarrhea in the morning 3-4 times. And she is almost taking loperamide every day. States she has chronic bradycardia with junctional rhythm. As per records since 2017 she was diagnosed with asymptomatic junctional rhythm. Thought to be from long use of lithium. With discontinuation of lithium depression worsened and also heart rates did not improved so lithium was restarted. But currently she is on Lamictal and lithium is stopped. As per the records she declined permanent pacemaker placement in the past. Her resting heart rates usually In the 40s and sometimes 30s per records.But with activity heart rates improve as per patient. Shortness of breath Since last Monday Chest x-ray possible congestion No obvious edema on exam BNP 1279 troponin 22 -> 19 Telemetry Echo - EF 55-60%. Junctional bradycardia Seems chronic Usually resting heart rates in 30s and 40s and improved with activity Thought to be from lithium Currently off of lithium Telemetry echo obtained Cardiology consulted - plan foe cardiac pacemaker tmrw, npo after MN Hypothyroidism On Synthyroid Will follow TSH MARILIA Creatinine on admission 1.2 Baseline creatinine 1-1.1 current Cr 1.1 If worsening will hold Lasix and olmesartan Hypertension On Lasix and olmesartan Will monitor Prediabetes Will follow HbA1c levels Depression On aripiprazole and Lamictal DVT prophylaxis SCDs for now Disposition Telemetry Full code Admission and Anticipated Discharge Date Admission Date: May 24, 2024 Subjective Pt seen in follow up of bradycardia Sitting up in bed in NAD Denies any chest pain but reports shortness of breath with minimal exertion, sometimes also at rest no fever, chills, no cough, no abd. pain, n/v Review of Systems Review of Systems: All systems reviewed & are unremarkable except as noted in Subjective Physical Exam Physical Exam: General- WD/WN F in NAD Head- atraumatic Eyes- PERRL. Neck- supple, no JVD. Lungs- clear to auscultation no wheezing or crackles Heart- + bradycardia, no murmur Abdomen- normal bowel sounds, soft, nontender, no distension Extremities- no pretibial edema, no erythema seen, moves extremities Neuro- alert, oriented PERRL, no facial palsy; no dysarthria; moves extremities. Results & Data Results & Data Vital Signs (Past 12 Hours) Vital Signs Temp Pulse Pulse Resp BP Pulse Ox Pulse Ox 05/25/24 07:16 36 L 05/25/24 04:06 36.8 C 46 L 18 168/83 H 92 05/25/24 01:25 36 L 05/24/24 23:46 36.2 C L 34 L 18 166/74 H 94 05/24/24 23:46 05/24/24 23:46 94 05/24/24 23:46 36.2 C L 34 L 18 166/74 H 94 05/24/24 21:00 31 L 18 143/71 H 98 05/24/24 19:54 30 L 20 121/55 L 93 05/24/24 19:38 33 L 18 94 05/24/24 19:38 94 O2 Del Method O2 Del Method 05/25/24 07:16 05/25/24 04:06 Room Air 05/25/24 01:25 05/24/24 23:46 Room Air 05/24/24 23:46 Room Air 05/24/24 23:46 Room Air 05/24/24 23:46 Room Air 05/24/24 21:00 Room Air 05/24/24 19:54 Room Air 05/24/24 19:38 Room Air 05/24/24 19:38 Room Air Laboratory Results 05/25/24 05/25/24 05/24/24 Range/Units 05:34 00:44 23:15 WBC 5.18 (4.8-10.8) K/ul RBC 3.60 L (4.20-5.40) M/uL Hgb 11.2 L (12.0-16.0) g/dl Hct 34.0 L (37.0-47.0) % MCV 94.4 (80.0-100.0) fL MCH 31.1 (25.0-34.0) pg MCHC 32.9 (32.0-36.0) g/dL RDW Std Deviation 46.5 H (36.4-46.3) fL RDW Coeff of Mauricio 13.6 (11.5-14.5) % Plt Count 146 (130-400) K/uL MPV 9.5 (9.4-12.4) fL Immature Gran % (Auto) 0.2 % Neut % (Auto) 64.5 % Lymph % (Auto) 24.5 % [place]in % (Auto) 8.7 % Eos % (Auto) 1.7 % Baso % (Auto) 0.4 % Neut # (Auto) 3.34 (1.40-6.50) K/uL Lymph # (Auto) 1.27 (1.20-3.40) K/uL [place] # (Auto) 0.45 (0.11-0.59) K/uL Eos # (Auto) 0.09 (0.00-0.50) K/uL Baso # (Auto) 0.02 (0.00-0.20) K/uL Immature Gran # (Auto) 0.01 (0.01-0.20) K/uL D-Dimer 700 H* (0-500) ug/L FEU Sodium 136 (136-145) mmol/L Potassium 4.3 (3.5-5.1) mmol/L Chloride 106 (98-107) mmol/L Carbon Dioxide 28 (21-32) mmol/L Anion Gap 2 L (3-11) BUN 17 (6-23) mg/dl Creatinine 1.17 (0.6-1.2) mg/dl Est Cr Clr Drug Dosing 35.5 ml/min eGFR 49.58 BUN/Creatinine Ratio 14.5 (10-20) Glucose 86 (70-99(Fasting)) mg/dl Calcium 9.1 (8.6-10.3) mg/dl Magnesium 2.0 (1.7-2.4) mg/dl Total Bilirubin (0.2-1.0) mg/dl AST (13-39) U/L ALT (7-52) U/L Alkaline Phosphatase (34-104) U/L Troponin I High Sens 19.0 H (0-14) pg/ml B-Natriuretic Peptide 1279 H (0-100) pg/ml Total Protein (6.0-8.3) gm/dl Albumin (3.4-5.0) gm/dl Globulin (2.5-4.0) gm/dl Albumin/Globulin Ratio (0.9-2) TSH (0.300-4.500) uIu/ml Free T4 (0.61-1.60) ng/dl Urine Color Yellow Urine Appearance Clear (Clear) Urine pH 6.5 (4.5-7.5) Ur Specific [place] 1.011 (1.000-1.030) Urine Protein Negative (Negative) Urine Glucose (UA) Negative (Negative) Urine Ketones Negative (Negative) Urine Blood Negative (Negative) Urine Nitrite Negative (Negative) Urine Bilirubin Negative (Negative) Urine Urobilinogen Negative (Negative) Ur Leukocyte Esterase 3+ H (Negative) Urine WBC (Auto) >50 H (0-5) /hpf Urine RBC (Auto) 0-2 (0-2) /hpf U Hyaline Cast (Auto) 0-2 (0-2) /lpf U Epithel Cells (Auto) 3-5 H (0-2) /hpf Urine Bacteria (Auto) None Seen (None Seen) Adenovirus (PCR) (NotDetected) B. pertussis DNA (PCR) (NotDetected) B.parapertussis DNA PCR (NotDetected) Lyme Disease Screen Negative (Negative) C. pneumoniae DNA (PCR) (NotDetected) Coronavirus OC43 (PCR) (NotDetected) Coronavirus HKU1 (PCR) (NotDetected) Coronavirus 229E (PCR) (NotDetected) SARS-CoV-2 (PCR) (NotDetected) Coronavirus NL63 (PCR) (NotDetected) Human Metapneumovir PCR (NotDetected) Influenza Type A (PCR) (NotDetected) Influenza Type B (PCR) (NotDetected) M. pneumoniae (PCR) (NotDetected) Parainfluenza 1 (PCR) (NotDetected) Parainfluenza 2 (PCR) (NotDetected) Parainfluenza 3 (PCR) (NotDetected) Parainfluenza 4 (PCR) (NotDetected) RSV (PCR) (NotDetected) Entero/Rhino (PCR) (NotDetected) 05/24/24 05/24/24 Range/Units 18:16 18:10 WBC 6.82 (4.8-10.8) K/ul RBC 4.13 L (4.20-5.40) M/uL Hgb 12.9 (12.0-16.0) g/dl Hct 38.8 (37.0-47.0) % MCV 93.9 (80.0-100.0) fL MCH 31.2 (25.0-34.0) pg MCHC 33.2 (32.0-36.0) g/dL RDW Std Deviation 46.6 H (36.4-46.3) fL RDW Coeff of Mauricio 13.6 (11.5-14.5) % Plt Count 195 (130-400) K/uL MPV 9.9 (9.4-12.4) fL Immature Gran % (Auto) 0.4 % Neut % (Auto) 66.0 % Lymph % (Auto) 23.3 % [place] % (Auto) 8.1 % Eos % (Auto) 1.8 % Baso % (Auto) 0.4 % Neut # (Auto) 4.50 (1.40-6.50) K/uL Lymph # (Auto) 1.59 (1.20-3.40) K/uL [place] # (Auto) 0.55 (0.11-0.59) K/uL Eos # (Auto) 0.12 (0.00-0.50) K/uL Baso # (Auto) 0.03 (0.00-0.20) K/uL Immature Gran # (Auto) 0.03 (0.01-0.20) K/uL D-Dimer (0-500) ug/L FEU Sodium 135 L (136-145) mmol/L Potassium 4.3 (3.5-5.1) mmol/L Chloride 100 (98-107) mmol/L Carbon Dioxide 28 (21-32) mmol/L Anion Gap 7 (3-11) BUN 21 (6-23) mg/dl Creatinine 1.23 H (0.6-1.2) mg/dl Est Cr Clr Drug Dosing 34.4 ml/min eGFR 46.69 BUN/Creatinine Ratio 17.1 (10-20) Glucose 94 (70-99(Fasting)) mg/dl Calcium 10.5 H (8.6-10.3) mg/dl Magnesium 2.2 (1.7-2.4) mg/dl Total Bilirubin 1.0 (0.2-1.0) mg/dl AST 29 (13-39) U/L ALT 30 (7-52) U/L Alkaline Phosphatase 114 H (34-104) U/L Troponin I High Sens 22.2 H (0-14) pg/ml B-Natriuretic Peptide (0-100) pg/ml Total Protein 7.4 (6.0-8.3) gm/dl Albumin 5.0 (3.4-5.0) gm/dl Globulin 2.4 L (2.5-4.0) gm/dl Albumin/Globulin Ratio 2.1 H (0.9-2) TSH 4.661 H (0.300-4.500) uIu/ml Free T4 1.20 (0.61-1.60) ng/dl Urine Color Urine Appearance (Clear) Urine pH (4.5-7.5) Ur Specific [place] (1.000-1.030) Urine Protein (Negative) Urine Glucose (UA) (Negative) Urine Ketones (Negative) Urine Blood (Negative) Urine Nitrite (Negative) Urine Bilirubin (Negative) Urine Urobilinogen (Negative) Ur Leukocyte Esterase (Negative) Urine WBC (Auto) (0-5) /hpf Urine RBC (Auto) (0-2) /hpf U Hyaline Cast (Auto) (0-2) /lpf U Epithel Cells (Auto) (0-2) /hpf Urine Bacteria (Auto) (None Seen) Adenovirus (PCR) Not Detected (NotDetected) B. pertussis DNA (PCR) Not Detected (NotDetected) B.parapertussis DNA PCR Not Detected (NotDetected) Lyme Disease Screen (Negative) C. pneumoniae DNA (PCR) Not Detected (NotDetected) Coronavirus OC43 (PCR) Not Detected (NotDetected) Coronavirus HKU1 (PCR) Not Detected (NotDetected) Coronavirus 229E (PCR) Not Detected (NotDetected) SARS-CoV-2 (PCR) Not Detected (NotDetected) Coronavirus NL63 (PCR) Not Detected (NotDetected) Human Metapneumovir PCR Not Detected (NotDetected) Influenza Type A (PCR) Not Detected (NotDetected) Influenza Type B (PCR) Not Detected (NotDetected) M. pneumoniae (PCR) Not Detected (NotDetected) Parainfluenza 1 (PCR) Not Detected (NotDetected) Parainfluenza 2 (PCR) Not Detected (NotDetected) Parainfluenza 3 (PCR) Not Detected (NotDetected) Parainfluenza 4 (PCR) Not Detected (NotDetected) RSV (PCR) Not Detected (NotDetected) Entero/Rhino (PCR) Not Detected (NotDetected) Medications Administered Current Inpatient Medications Acetaminophen (Acetaminophen 325 Mg Tab) 650 mg PO Q4H PRN PRN Reason: Pain or Fever Stop: 06/23/24 23:45 Aripiprazole (Aripiprazole 10 Mg Tab) 20 mg PO DAILY [facility] Stop: 06/24/24 08:59 Fluoxetine HCl (Fluoxetine Hcl 20 Mg Cap) 20 mg PO DAILY [facility] Stop: 06/24/24 08:59 Furosemide (Furosemide 20 Mg Tab) 20 mg PO QAM [facility] Stop: 06/24/24 08:59 Lamotrigine (Lamotrigine 100 Mg Tab) 200 mg PO HS [facility]KA; Protocol Stop: 06/24/24 20:59 Levothyroxine Sodium (Levothyroxine Sodium 88 Mcg Tablet) 88 mcg PO DAILYBB [facility] Stop: 06/24/24 06:29 Last Admin: 05/25/24 05:43 Dose: 88 mcg Losartan Potassium (Losartan Potassium 50 Mg Tab) 100 mg PO DAILY [facility] Stop: 06/24/24 08:59 Melatonin (Melatonin 3 Mg Tab) 1.5 mg PO HS PRN PRN Reason: Sleep Stop: 06/24/24 02:16 Nitroglycerin (Nitroglycerin Sl 0.4 Mg/Tab Tab) 0.4 mg SL Q5M PRN PRN Reason: Chest Pain Stop: 06/23/24 23:45 Timolol Maleate (Timolol Maleate 0.5% Op Soln 5 Ml Btl) 2 drops OP DAILY [facility] Stop: 06/24/24 08:59
[2024-05-25] MEDS ORDERED: NON-FORMULARY MEDICATION (Glucos Sul 2kcl-Msm-Chond-C-Mn [Glucosamine Chondroitin] 550-30- PO SCH (09:00)
[2024-05-25] MEDS: ARIPiprazole 10 MG TAB PO SCH (09:27)
[2024-05-25] MEDS: FLUoxetine HCL 20 MG CAP PO SCH (09:27)
[2024-05-25] MEDS: LOSARTAN POTASSIUM 50 MG TAB PO SCH (09:28)
[2024-05-25] MEDS: FUROSEMIDE 20 MG TAB PO SCH (09:28)
[2024-05-25] MEDS: TIMOLOL MALEATE 0.5% OP SOLN 5 ML BTL OP SCH (09:29)
--- NOTE | 2024-05-25 09:34 | Cardiology Consultation ---
<Statement entered by Mary Desai DO - 05/25/24 14:07> I have reviewed the advanced practitioner's documentation and agree with the plan of care. I accept the responsibility for the associated risk. Pt seen in cardiology consultation due to symptomatic irreversible sinus bradycardia and junctional rhythms pt has noticed progressively worsening SOB with exertion no near syncope she tells me she is now ready for a ppm I discussed the procedure and potential risks with the patient which include but are not limited to heart attacks, strokes, , arrhythmias, injury to blood vessels/lungs/cardiac chambers, bleeding and infection She expressed an understanding and wished to proceed NPO after midnight for a ppm tomorrow I spent a total of [] minutes coordinating, documenting, and providing care for this patient excluding time spent in the performance of separately billed services or time spent by another provider/QHP. Date of Consultation May 25, 2024 Assessment & Plan (1) Symptomatic bradycardia: (2) Junctional bradycardia: (3) Elevated troponin: (4) Coronary atherosclerosis of [place] coronary artery: (5) HTN, goal below 130/80: (6) Dyslipidemia, goal LDL below 70: Plan Avoid AV shayla blockers Maintain telemetry Await resting echocardiogram NPO after midnight Probable outpatient ischemic evaluation History of Present Illness Reason for Consultation: Shortness of breath, bradycardia Requesting Physician: Dr. Martinez Attending Physician: Dr. Carson Pratt MD History of Present Illness Ruth Recinos is a very pleasant 73-year-old female who presented to [facility] on May 24, 2024 with complaints of weakness, "sudden shortness of breath, feeling "full of lactic acid, (eye) lids too heavy to lift." Patient also with reduced exercise tolerance, fatigue. - EKG on presentation revealed junctional bradycardia with retrograde P wave. Possible old septal infarct. - Continuous telemetry with marked bradycardia with junctional bradycardia with retrograde P wave, heart rates in the 30s, high of 60s. - High-sensitivity troponin minimally elevated at 22.2 then 19.0 pg/mL - TSH minimally elevated, 4.661 uIu/mL - Imaging of the chest included chest x-ray that was interpreted by the radiologist as revealing mild pulmonary vascular congestion, chronic interstitial lung changes. - Chest CT showed no evidence of PE. Pulmonary trunk was mildly dilated. Minimal right-sided pleural effusion observed along with mild cardiomegaly, dilated IVC and hepatic vein. Mosaic attenuation noted in bilateral lung parenchymal. Coronary artery and aortic atherosclerotic calcifications observed. Past Medical and Surgical History: Longstanding history of depression, previously treated with lithium (off lithium since 2014) Chronic bradycardia, junctional bradycardia diagnosed in February 2018 Left anterior fascicular block Hypertension Dyslipidemia Prediabetes Hypothyroidism Bilateral low-tension glaucoma, on timolol Osteoarthritis Osteopenia Rectal prolapse repair in August 2014, robotic assisted rectopexy Removal of a cyst from the left neck Family History: Father at 92. Mother had a history of bipolar, dementia. 1 brother with bradycardia. 1 brother is without without health issues Social History: Non-smoker. Previously drank 1 small glass of wine in the evening, abstaining with the depression. No illegal drug use. . 1 son who lives in the area and works at [employer]. 1 daughter in [place]. 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 Allergies Allergy/AdvReac Type Severity Reaction Status Date / Time griseofulvin Allergy Mild Rash Verified 05/25/24 02:00 Home Medications Medication Instructions Recorded Confirmed Type aripiprazole 20 mg tablet 20 mg PO DAILY 05/24/24 05/24/24 History fluoxetine 20 mg capsule 20 mg PO DAILY 05/24/24 05/24/24 History furosemide 20 mg tablet 20 mg PO QAM 05/24/24 05/24/24 History glucosamine sulf dipot 1 cap PO DAILY 05/24/24 05/24/24 History chlr,msm,chond 550 mg-C 30 mg-elvie 1 mg capsule (Glucosamine Chondroitin) lamotrigine 200 mg tablet 200 mg PO HS 05/24/24 05/24/24 History levothyroxine 88 mcg tablet 88 mcg PO QAM 05/24/24 05/24/24 History melatonin 1 mg tablet 1 mg PO HS PRN Sleep 05/24/24 05/24/24 History olmesartan 40 mg tablet 40 mg PO DAILY 05/24/24 05/24/24 History timolol maleate 0.5 % eye drops 2 drp ophthalmic (eye) DAILY 05/24/24 05/24/24 History Patient History Social History Smoking Status: Never smoker Hx Alcohol Use: Yes Hx Substance Use: No Preferred Language: Romanian Communication Ability: Effective [employer] Required: No Beliefs That Will Affect Care: Muslim Muslim Beliefs: Catholic Current Living Situation: Spouse Feels Safe at Home: Yes Safety Concerns: Feels Safe At This Time Review of Systems Review of Systems: Complete Review of Systems: Constitutional: RSV in January 2024. AM cough, improving throughout the morning. No unplanned weight loss. HEENT: Cataracts. Glaucoma, asymmetric optic nerve. Floaters. No history of amaurosis fugax. Pulmonary: No history of asthma, emphysema, COPD, or sleep apnea. No history of PE. Cardiac: Chronic bradycardia GI/Abd:? Cirrhosis. Fatty liver. No kidney problems. No history of pancreatic issues. Vascular: No history of carotid artery disease, AAA, or lower extremity claudication/PAD. Hematologic: No coagulation disorder, anemia, or abnormal bleeding. Musculoskeletal: Arthritis Skin: No rash. No tick bites. Neurologic: No history of TIA/CVA. No history of seizure. Female : Rectocele, repair Endocrine: Prediabetes. Hypothyroidism. Compliance with levothyroxine noted. Complete Review of Systems is as stated above, negative, or noncontributory Physical Exam Physical Exam: General: A&Ox3. NAD. HENT: Normocephalic. Atraumatic. Eyes: PER. Conjunctiva pink, sclera clear. Neck: No carotid bruits. No JVD. Heart: Regular at 46 bpm. Grade II/ systolic murmur at LLSB and apex. Lungs: Clear to auscultation. Abdomen: +BS. Soft. Nontender. No masses or organomegaly. Extremities: No clubbing, cyanosis, or edema. Limited neurological examination is without focal deficits. Pulses: radial=2/4, posterior tibial=2/4. Results & Data Vital Signs (Past 12 Hours) Vital Signs Temp Pulse Pulse Resp BP Pulse Ox Pulse Ox 05/25/24 09:22 36.6 C 47 L 18 143/82 H 93 05/25/24 07:16 36 L 05/25/24 04:06 36.8 C 46 L 18 168/83 H 92 05/25/24 01:25 36 L 05/24/24 23:46 36.2 C L 34 L 18 166/74 H 94 05/24/24 23:46 05/24/24 23:46 94 02/28/25 23:46 36.2 C L 34 L 18 166/74 H 94 O2 Del Method O2 Del Method 05/25/24 09:22 Room Air 05/25/24 07:16 05/25/24 04:06 Room Air 05/25/24 01:25 05/24/24 23:46 Room Air 05/24/24 23:46 Room Air 05/24/24 23:46 Room Air 05/24/24 23:46 Room Air Laboratory Results Cardiac Enzymes 05/24/24 05/24/24 05/25/24 Range/Units 18:10 23:15 05:34 AST 29 (13-39) U/L Troponin I High Sens 22.2 H 19.0 H (0-14) pg/ml B-Natriuretic Peptide 1279 H (0-100) pg/ml Coagulation 05/24/24 Range/Units 23:15 B-Natriuretic Peptide 1279 H (0-100) pg/ml CBC 05/24/24 05/25/24 Range/Units 18:10 05:34 WBC 6.82 5.18 (4.8-10.8) K/ul RBC 4.13 L 3.60 L (4.20-5.40) M/uL Hgb 12.9 11.2 L (12.0-16.0) g/dl Hct 38.8 34.0 L (37.0-47.0) % Plt Count 195 146 (130-400) K/uL Neut # (Auto) 4.50 3.34 (1.40-6.50) K/uL Lymph # (Auto) 1.59 1.27 (1.20-3.40) K/uL [place] # (Auto) 0.55 0.45 (0.11-0.59) K/uL Eos # (Auto) 0.12 0.09 (0.00-0.50) K/uL Baso # (Auto) 0.03 0.02 (0.00-0.20) K/uL Comprehensive Metabolic Panel 05/24/24 05/25/24 Range/Units 18:10 05:34 Sodium 135 L 136 (136-145) mmol/L Potassium 4.3 4.3 (3.5-5.1) mmol/L Chloride 100 106 (98-107) mmol/L Carbon Dioxide 28 28 (21-32) mmol/L BUN 21 17 (6-23) mg/dl Creatinine 1.23 H 1.17 (0.6-1.2) mg/dl Glucose 94 86 (70-99(Fasting)) mg/dl Calcium 10.5 H 9.1 (8.6-10.3) mg/dl AST 29 (13-39) U/L ALT 30 (7-52) U/L Alkaline Phosphatase 114 H (34-104) U/L Total Protein 7.4 (6.0-8.3) gm/dl Albumin 5.0 (3.4-5.0) gm/dl Intake and Output 05/24/24 05/25/24 05/25/24 22:59 06:59 14:59 Other: Weight 63.4 kg 61.2 kg Weight Measurement Method Chair Scale Built in [facility] Diagnostic Findings Telemetry: Junctional bradycardia with retrograde P waves Resting echocardiogram: Pending.
--- NOTE | 2024-05-25 14:31 | Ultrasound Report ---
HISTORY: Weakness and fatigue. Elevated D-dimer. TECHNIQUE: Bilateral lower extremity venous Doppler evaluation for DVT. Grayscale, color Doppler, and spectral Doppler imaging was utilized. COMPARISON: None. FINDINGS: The right common femoral vein, greater saphenous junction, femoral vein, and popliteal vein appear color Doppler patent and compressible. Respiratory variation and augmentation is noted. The posterior tibial, anterior tibial, and peroneal veins appear color Doppler patent. The surrounding soft tissues are unremarkable. The left common femoral vein, greater saphenous junction, femoral vein, and popliteal vein appear color Doppler patent and compressible. The posterior tibial, peroneal, and anterior tibial veins appear color Doppler patent. Respiratory variation and augmentation is noted. Surrounding soft tissues are unremarkable. IMPRESSION: No evidence of lower extremity DVT. Electronically signed by Benson Villatoro 05-25-2024 2:31 PM
[2024-05-25 19:55] LABS: Adenovirus F 40/41 PCR Not Detected (NotDetected); Astrovirus PCR Not Detected (NotDetected); Campylobacter PCR Not Detected (NotDetected); Cryptosporidium PCR Not Detected (NotDetected); Cyclospora cayetanensis PCR Not Detected (NotDetected); Entamoeba histolytica PCR Not Detected (NotDetected); Enteroaggregative E.coli(EAEC) Not Detected (NotDetected); Enteropathogenic E.coli (EPEC) Not Detected (NotDetected); Enterotoxigenic E.coli (ETEC) Not Detected (NotDetected); Giardia lamblia PCR Not Detected (NotDetected); Norovirus GI/GII PCR Not Detected (NotDetected); Plesiomonas shigelloides PCR Not Detected (NotDetected); Rotavirus A PCR Not Detected (NotDetected); Salmonella PCR Not Detected (NotDetected); Sapovirus PCR Not Detected (NotDetected); Shiga-like Toxin E.coli (STEC) Not Detected (NotDetected); Shigella/Enteroinvasive E.coli Not Detected (NotDetected); Vibrio cholerae PCR Not Detected (NotDetected); Vibrio species PCR Not Detected (NotDetected); Yersinia enterocolitica PCR Not Detected (NotDetected)
[2024-05-25] MEDS: lamoTRIgine 100 MG TAB PO SCH (20:11)
[2024-05-26 07:20] LABS: Hematocrit (blood only) 36.1 % (37.0-47.0); Hemoglobin 11.7 g/dl (12.0-16.0); Mean Corpuscular Hemoglobin 30.5 pg (25.0-34.0); Mean Corpuscular Hgb Conc 32.4 g/dL (32.0-36.0); Mean Corpuscular Volume 94.3 fL (80.0-100.0); Mean Platelet Volume 9.1 fL (9.4-12.4); Platelet Count 156 K/uL (130-400); RDW Coefficient of Variation 13.7 % (11.5-14.5); RDW Standard Deviation 46.9 fL (36.4-46.3); Red Blood Count 3.83 M/uL (4.20-5.40)
[2024-05-26 07:43] LABS: BUN Creatinine Ratio 20.7 (10-20); Calcium 9.5 mg/dl (8.6-10.3); Creatinine Clr Calc Pharmacy 35.8 ml/min; Magnesium 2.1 mg/dl (1.7-2.4); Phosphorus 3.6 mg/dl (2.5-4.9); Potassium 4.5 mmol/L (3.5-5.1)
[2024-05-26 09:29] LABS: Estimated Average Glucose 103 mg/dl; Hemoglobin A1C 5.2 % (4.5-5.6)
--- NOTE | 2024-05-26 10:44 | Cardiology Progress Note ---
<Statement entered by Mary Desai, - 05/26/24 15:36> I have reviewed the advanced practitioner's documentation and agree with the plan of care. I accept the responsibility for the associated risk. Pt seen in cardiology f/u due to irreversible symptomatic sinus bradycardia underwent ppm today she can be discharged home tomorrow official post op CXR read pending on my review looks ok no PTX tylenol for pain losartan for BP could add toprol if needed will need a wound check in 10 days will check device tomorrow Date of Service May 26, 2024 Assessment & Plan (1) Symptomatic bradycardia: (2) Junctional bradycardia: (3) Elevated troponin: (4) Coronary atherosclerosis of [place] coronary artery: (5) HTN, goal below 130/80: (6) Dyslipidemia, goal LDL below 70: Plan Maintain NPO status Permanent dual-chamber pacemaker implantation this afternoon Outpatient ischemic evaluation Admission and Anticipated Discharge Date Admission Date: May 24, 2024 Subjective Patient seen and examined. Chart, medications, telemetry reviewed. Has been NPO after midnight Feels okay. No near syncope. Breathing OK. No chest pain. No palpitations. No edema. No fevers or chills. Telemetry: Junctional bradycardia with heart rates down to 26 bpm, currently junctional bradycardia at 36 bpm. May 26, 2024 EKG: Junctional bradycardia at 40 bpm. Diffuse STT wave abnormality. QTc 366 ms. Physical Exam Physical Exam: General: A&Ox3. NAD. HENT: Normocephalic. Atraumatic. Eyes: PER. Conjunctiva pink, sclera clear. Neck: No carotid bruits. No JVD. Heart: Regular at 32 bpm. Grade II/ systolic murmur at LLSB and apex. Lungs: Clear to auscultation. Abdomen: +BS. Soft. Nontender. No masses or organomegaly. Extremities: No clubbing, cyanosis, or edema. Limited neurological examination is without focal deficits. Pulses: radial=2/4, posterior tibial=2/4. Results & Data Vital Signs (Past 12 Hours) Vital Signs Temp Pulse Pulse Resp BP Pulse Ox Pulse Ox 05/26/24 07:53 36.7 C 50 L 16 142/82 H 94 05/26/24 06:58 44 L 05/26/24 03:52 36.6 C 38 L 18 138/68 91 05/25/24 23:51 34 L 05/25/24 23:46 92 05/25/24 22:56 36.4 C L 39 L 16 126/81 93 O2 Del Method O2 Del Method 05/26/24 07:53 Room Air 05/26/24 06:58 05/26/24 03:52 Room Air 05/25/24 23:51 05/25/24 23:46 Room Air 05/25/24 22:56 Room Air Laboratory Results CBC 05/26/24 Range/Units 07:07 WBC 5.60 (4.8-10.8) K/ul RBC 3.83 L (4.20-5.40) M/uL Hgb 11.7 L (12.0-16.0) g/dl Hct 36.1 L (37.0-47.0) % Plt Count 156 (130-400) K/uL Comprehensive Metabolic Panel 05/26/24 Range/Units 07:07 Sodium 135 L (136-145) mmol/L Potassium 4.5 (3.5-5.1) mmol/L Chloride 102 (98-107) mmol/L Carbon Dioxide 30 (21-32) mmol/L BUN 24 H (6-23) mg/dl Creatinine 1.16 (0.6-1.2) mg/dl Glucose 103 H (70-99(Fasting)) mg/dl Calcium 9.5 (8.6-10.3) mg/dl Intake and Output 05/25/24 05/26/24 05/26/24 22:59 06:59 14:59 Intake Total 500 / 500 Balance 500 / 500 Intake: Oral 500 / 500 Other: Other Intake Source Npo # Unmeasured Voids 1 1 Weight 61.2 kg Weight Measurement Method Built in [facility]
--- NOTE | 2024-05-26 12:08 | History & Physical Bridge Note ---
Date of Service May 26, 2024 History & Physical Bridge Note I have examined the patient, reviewed the History & Physical and in the interval since the performance of the History & Physical I have noted the following changes of clinical significance: no changes noted
--- NOTE | 2024-05-26 12:08 | Pre Anesthesia Assessment ---
Date of Service May 26, 2024 Pre Sedation Assessment Vital Signs Temp Pulse Pulse Resp BP Pulse Ox Pulse Ox 05/26/24 11:29 36.5 C 33 L 18 145/62 H 95 05/26/24 07:53 36.7 C 50 L 16 142/82 H 94 05/26/24 06:58 44 L 05/26/24 03:52 36.6 C 38 L 18 138/68 91 05/25/24 23:51 34 L 05/25/24 23:46 92 05/25/24 22:56 36.4 C L 39 L 16 126/81 93 05/25/24 19:05 36.5 C 40 L 18 124/70 90 05/25/24 16:25 44 L 05/25/24 16:22 37.3 C 35 L 18 125/79 93 05/25/24 14:50 40 L O2 Del Method O2 Del Method 05/26/24 11:29 Room Air 05/26/24 07:53 Room Air 05/26/24 06:58 05/26/24 03:52 Room Air 05/25/24 23:51 05/25/24 23:46 Room Air 05/25/24 22:56 Room Air 05/25/24 19:05 Room Air 05/25/24 16:25 05/25/24 16:22 Room Air 05/25/24 14:50 Cardiovascular + bradycardic Respiratory normal respiratory effort, lungs clear to auscultation Pre-Sedation Airway Assessment Smoking Status: Never smoker Hx Sleep Apnea: No Hx Difficult Intubation: No Short, Thick Neck: No Thyromental Distance: < 3.5 Finger Breadths Oral Cavity: + WNL Mallampati Class: II ASA: ASA3 NPO Status Date of Last Intake of Fluids: 05/25/24 Date of Last Intake of Solid Food: 05/25/24 Procedure Planning Contraindications for Sedation: none Current Medications Reviewed: Yes Notes The planned sedation has been discussed with the patient. Informed Consent was obtained. I have identified the patient, determined the appropriateness of sedation and have assessed the patient immediately prior to the procedure. All medicine(s) and interventions are by my order.
[2024-05-26] MEDS: BUPIVACAINE 0.25% PF 30 ML VIAL ONE (12:31)
[2024-05-26] MEDS: VANCOMYCIN HCL 1000MG/20ML VIAL ONE (12:32)
[2024-05-26] MEDS: WATER, STERILE FOR INJ 10 ML VIAL ONE (12:32)
[2024-05-26] MEDS: ceFAZolin 330 MG/ML 1 GM VIAL ONE (12:32)
[2024-05-26] MEDS: LIDOCAINE 1% LOCAL 20 ML VIAL ONE (12:32)
[2024-05-26] MEDS: fentaNYL citrate PF 100 MCG/2 ML VIAL ONE (13:33)
[2024-05-26] MEDS: MIDAZOLAM HCL 5 MG/ML 1 ML VIAL ONE (13:34)
--- NOTE | 2024-05-26 13:34 | Post Anesthesia Assessment ---
Date of Service May 26, 2024 Post Sedation Assessment Vital Signs Temp Pulse Pulse Resp BP Pulse Ox Pulse Ox 05/26/24 11:29 36.5 C 33 L 18 145/62 H 95 05/26/24 07:53 36.7 C 50 L 16 142/82 H 94 05/26/24 06:58 44 L 05/26/24 03:52 36.6 C 38 L 18 138/68 91 05/25/24 23:51 34 L 05/25/24 23:46 92 05/25/24 22:56 36.4 C L 39 L 16 126/81 93 05/25/24 19:05 36.5 C 40 L 18 124/70 90 05/25/24 16:25 44 L 05/25/24 16:22 37.3 C 35 L 18 125/79 93 05/25/24 14:50 40 L O2 Del Method O2 Del Method 05/26/24 11:29 Room Air 05/26/24 07:53 Room Air 05/26/24 06:58 05/26/24 03:52 Room Air 05/25/24 23:51 05/25/24 23:46 Room Air 05/25/24 22:56 Room Air 05/25/24 19:05 Room Air 05/25/24 16:25 05/25/24 16:22 Room Air 05/25/24 14:50 Recovery Score Activity: Moves 4 extremities Respiration: Deep Breath/Cough Circulation: +/-20% PreAnes Value Consciousness: Fully Awake Oxygen Saturation: > 92% On Room Air Discharge Sedation Level of Care: Fast Track Phase II Post Sedation Plan On clinical assessment, the patient appears to have tolerated the sedation without complications. Patient is recovering as anticipated. Patient will continue to be monitored by nursing and may be discharged when sedation discharge criteria are met per below protocol. Upon Completions of procedure up to 15 minutes continue every 5 minute vital signs and the P.A.R. score; then discharge to a Phase I or Fast Track to Phase II per the following guidelines: * Discharge Patient to appropriate Phase II area if PAR is 8 or greater or return to pre- procedure baseline. The post - procedure orders will be as directed. * If PAR score is less than 8 or not return to pre-procedure baseline then patient will follow Phase I monitoring till PAR is reached for Phase II. The Phase I may be done in procedure room or may call to secure a Phase I area. * If naloxone or flumazenil are used for reversal, hold in Phase I for continued monitoring from when last reversal dose was given for a minimum of 60 minutes or longer pending the nurse and/or physician discretion of patient condition before discharge to Phase II. Please call the Sedation Physician to re-evaluate and complete post-note for discharge to Phase II area. Do NOT discharge from procedure sedation or Phase 1 until post- sedation evaluation note is complete by procedure /sedation MD Sedation Discharge Instructions to be given to the patient at discharge to home.
[2024-05-26] MEDS: ACETAMINOPHEN 325 MG TAB PO PRN (14:03)
--- NOTE | 2024-05-26 15:40 | XRay Report ---
Technique: A frontal view of the chest was obtained Findings: There are no definite pulmonary infiltrates. The heart size is at the upper limit of normal. No definite pleural effusion or pneumothorax is seen. There is no definite pulmonary nodule. No fracture is noted. There is a left chest wall pacemaker device Impression: No active disease Electronically signed by Javy Pinto 05-26-2024 3:40 PM
--- NOTE | 2024-05-26 16:12 | Hospitalist Progress Note ---
Date of Service May 26, 2024 Assessment & Plan (1) SOB (shortness of breath): Plan: 73-yo F w/ hypothyroidism, prediabetes, hypertension, bradycardia, rectal prolapse, bilateral low-tension glaucoma mild stage, depression presents with shortness of breath. Patient states since last Monday was feeling short of breath. Climbing half flight of stairs making her short of breath. She is still going to the gym. Able to walk okay in the gym. Today she was in the gym and did some light weights and felt very exhausted. Denies any cough. Denies fevers. No runny nose or sore throat. No headache. No dizziness. Since last couple of weeks she has some blurred vision but seems it is getting better. No runny nose or sore throat. Denies any chest pain. No nausea. No abdominal pain. Appetite is okay. No difficulty swallowing. Normal bladder movements. Patient states since last few months she is having diarrhea in the morning 3-4 times. And she is almost taking loperamide every day. States she has chronic bradycardia with junctional rhythm. As per records since 2017 she was diagnosed with asymptomatic junctional rhythm. Thought to be from long use of lithium. With discontinuation of lithium depression worsened and also heart rates did not improved so lithium was restarted. But currently she is on Lamictal and lithium is stopped. As per the records she declined permanent pacemaker placement in the past. Her resting heart rates usually In the 40s and sometimes 30s per records.But with activity heart rates improve as per patient. Shortness of breath Since last Monday Chest x-ray possible congestion No obvious edema on exam BNP 1279 troponin 22 -> 19 Telemetry Echo - EF 55-60%. Junctional bradycardia Seems chronic Usually resting heart rates in 30s and 40s and improved with activity Thought to be from lithium Currently off of lithium Telemetry echo obtained Cardiology consulted - plan for cardiac pacemaker today (05/26/2024) Hypothyroidism On Synthyroid TSH 4.6 MARILIA Creatinine on admission 1.2 Baseline creatinine 1-1.1 current Cr 1.1 If worsening will hold Lasix and olmesartan Hypertension On Lasix and olmesartan Will monitor Prediabetes HbA1c 5.2% Depression On aripiprazole and Lamictal DVT prophylaxis SCDs for now Disposition Telemetry Full code Admission and Anticipated Discharge Date Admission Date: May 24, 2024 Subjective Pt seen in follow up of bradycardia Sitting up in bed in NAD Denies any chest pain but reports shortness of breath with minimal exertion, sometimes also at rest no fever, chills, no cough, no abd. pain, n/v plan for cardiac pacemaker today Review of Systems Review of Systems: All systems reviewed & are unremarkable except as noted in Subjective Physical Exam Physical Exam: General- WD/WN F in NAD Head- atraumatic Eyes- PERRL. Neck- supple, no JVD. Lungs- clear to auscultation no wheezing or crackles Heart- + bradycardia, no murmur Abdomen- normal bowel sounds, soft, nontender, no distension Extremities- no pretibial edema, no erythema seen, moves extremities Neuro- alert, oriented PERRL, no facial palsy; no dysarthria; moves extremities. Results & Data Results & Data Vital Signs (Past 12 Hours) Vital Signs Temp Pulse Pulse Resp BP Pulse Ox O2 Del Method 05/26/24 15:24 36.4 C L 59 L 18 148/87 H 93 Room Air 05/26/24 14:34 60 16 177/115 H 92 Room Air 05/26/24 14:04 60 18 170/100 H 92 Room Air 05/26/24 13:48 36.6 C 66 16 171/87 H 95 Room Air 05/26/24 11:29 36.5 C 33 L 18 145/62 H 95 Room Air 05/26/24 07:53 36.7 C 50 L 16 142/82 H 94 Room Air 05/26/24 06:58 44 L Laboratory Results 05/26/24 05/25/24 Range/Units 07:07 18:15 WBC 5.60 (4.8-10.8) K/ul RBC 3.83 L (4.20-5.40) M/uL Hgb 11.7 L (12.0-16.0) g/dl Hct 36.1 L (37.0-47.0) % MCV 94.3 (80.0-100.0) fL MCH 30.5 (25.0-34.0) pg MCHC 32.4 (32.0-36.0) g/dL RDW Std Deviation 46.9 H (36.4-46.3) fL RDW Coeff of Mauricio 13.7 (11.5-14.5) % Plt Count 156 (130-400) K/uL MPV 9.1 L (9.4-12.4) fL Sodium 135 L (136-145) mmol/L Potassium 4.5 (3.5-5.1) mmol/L Chloride 102 (98-107) mmol/L Carbon Dioxide 30 (21-32) mmol/L Anion Gap 3 (3-11) BUN 24 H (6-23) mg/dl Creatinine 1.16 (0.6-1.2) mg/dl Est Cr Clr Drug Dosing 35.8 ml/min eGFR 50.09 BUN/Creatinine Ratio 20.7 H (10-20) Glucose 103 H (70-99(Fasting)) mg/dl Estimat Average Glucose 103 mg/dl Hemoglobin A1c 5.2 (4.5-5.6) % Calcium 9.5 (8.6-10.3) mg/dl Phosphorus 3.6 (2.5-4.9) mg/dl Magnesium 2.1 (1.7-2.4) mg/dl Stl C. cayetanensis PCR Not Detected (NotDetected) Stool Rotavirus A PCR Not Detected (NotDetected) Stl Adenov F 40/41 PCR Not Detected (NotDetected) Stool Astrovirus (PCR) Not Detected (NotDetected) Stool Campylobacter PCR Not Detected (NotDetected) Stl C. diff Tox B Gene Negative Cdiff Gene (Neg) Stool Cryptosporidium PCR Not Detected (NotDetected) Stl E.coli Shiga Tox PCR Not Detected (NotDetected) Stl Enterotoxigenic E PCR Not Detected (NotDetected) Stool EPEC (PCR) Not Detected (NotDetected) Stool EAEC (PCR) Not Detected (NotDetected) Stl E. histolytica PCR Not Detected (NotDetected) Stool Giardia Lamblia PCR Not Detected (NotDetected) Stool Salmonella PCR Not Detected (NotDetected) Stool Sapovirus (PCR) Not Detected (NotDetected) Stl P. shigelloides PCR Not Detected (NotDetected) Stl Shigella/EIEC PCR Not Detected (NotDetected) St Y.enterocolitica PCR Not Detected (NotDetected) Stool Vibrio (PCR) Not Detected (NotDetected) Stl Vibrio cholerae PCR Not Detected (NotDetected) Stl Norovirus GI/GII PCR Not Detected (NotDetected) Medications Administered Current Inpatient Medications Acetaminophen (Acetaminophen 325 Mg Tab) 650 mg PO Q4H PRN PRN Reason: Pain or Fever Stop: 06/23/24 23:45 Last Admin: 05/26/24 14:03 Dose: 650 mg Aripiprazole (Aripiprazole 10 Mg Tab) 20 mg PO DAILY RADHIKA Stop: 06/24/24 08:59 Last Admin: 05/26/24 13:50 Dose: 20 mg Fluoxetine HCl (Fluoxetine Hcl 20 Mg Cap) 20 mg PO DAILY RADHIKA Stop: 06/24/24 08:59 Last Admin: 05/26/24 13:52 Dose: 20 mg Furosemide (Furosemide 20 Mg Tab) 20 mg PO QAM [facility] Stop: 06/24/24 08:59 Last Admin: 05/26/24 13:52 Dose: 20 mg Lamotrigine (Lamotrigine 100 Mg Tab) 200 mg PO HS RADHIKA; Protocol Stop: 06/24/24 20:59 Last Admin: 05/25/24 20:11 Dose: 200 mg Levothyroxine Sodium (Levothyroxine Sodium 88 Mcg Tablet) 88 mcg PO DAILYBB [facility] Stop: 06/24/24 06:29 Last Admin: 05/26/24 08:53 Dose: 88 mcg Losartan Potassium (Losartan Potassium 50 Mg Tab) 100 mg PO DAILY RADHIKA Stop: 06/24/24 08:59 Last Admin: 05/26/24 13:52 Dose: 100 mg Melatonin (Melatonin 3 Mg Tab) 1.5 mg PO HS PRN PRN Reason: Sleep Stop: 06/24/24 02:16 Nitroglycerin (Nitroglycerin Sl 0.4 Mg/Tab Tab) 0.4 mg SL Q5M PRN PRN Reason: Chest Pain Stop: 06/23/24 23:45 Timolol Maleate (Timolol Maleate 0.5% Op Soln 5 Ml Btl) 2 drops OP DAILY [facility] Stop: 06/24/24 08:59 Last Admin: 05/26/24 10:11 Dose: 2 drops
[2024-05-27 08:20] VITALS: RESP 17
[2024-05-27 10:23] LABS: Hematocrit (blood only) 35.3 % (37.0-47.0); Hemoglobin 11.5 g/dl (12.0-16.0); Mean Corpuscular Hemoglobin 30.3 pg (25.0-34.0); Mean Corpuscular Hgb Conc 32.6 g/dL (32.0-36.0); Mean Corpuscular Volume 93.1 fL (80.0-100.0); Mean Platelet Volume 9.2 fL (9.4-12.4); Platelet Count 156 K/uL (130-400); RDW Coefficient of Variation 13.8 % (11.5-14.5); RDW Standard Deviation 47.2 fL (36.4-46.3); Red Blood Count 3.79 M/uL (4.20-5.40); White Blood Count 6.46 K/ul (4.8-10.8)
[2024-05-27 10:37] LABS: BUN Creatinine Ratio 17.9 (10-20); Calcium 9.9 mg/dl (8.6-10.3); Creatinine Clr Calc Pharmacy 39.3 ml/min; Potassium 4.5 mmol/L (3.5-5.1)
--- NOTE | 2024-05-27 10:59 | Cardiology Progress Note ---
Date of Service May 27, 2024 Assessment & Plan (1) S/P cardiac pacemaker procedure: Plan Patient is s/p dual chamber pacemaker implant on 05/26/24 due to symptomatic bradycardia and junctional rhythm. Tolerated procedure without issue. SOB and dizziness improved. Appropriate function of device this morning, discussed with Paul chester. BP improving with losartan 100 mg daily Minimally elevated troponin on admission in the 20's. Outpatient ischemic work up recommended earlier this admission. Echo with normal LVEF 55-60%, no wall motion abnormalities Lifting and movement restrictions reviewed with the patient. She will have wound check and future device check at [facility] device clinic in about 7-10 days. stable for discharge today Case discussed with Dr. Matthews I spent a total of 35 minutes on the date of service in preparation, delivery, and documentation of the care provided to this patient, excluding any time spent in the performance of separately billed services. Hannah Kang PA-C Department of Cardiology, [facility] This chart was completed in part utilizing Speech Voice Recognition Software. Grammatical errors, random word insertions, pronoun errors, and incomplete sentences are an occasional consequence of this system due to software arias itations, ambient noise, and hardware issues. Any formal questions or concerns about the content, text, or information contained within the body of this dictation should be directly addressed to the provider for clarification. Admission and Anticipated Discharge Date Admission Date: May 24, 2024 Supervising Physician Co-Signing Physician Notes I have personally performed a history and physical examination on the patient. I have reviewed the advance practitioner's documentation, and I agree with, and take responsibility for the plan of care. 73-year-old female status post dual-chamber pacemaker implantation 05/26/2024 without complications due to symptomatic bradycardia and junctional rhythm. Recommendations: * Activity/lifting restrictions reviewed. * Wound/device check at [facility] in 7 to 10 days. * No further inpatient cardiac testing or intervention at this time. * Cardiology will sign off. * Please call with additional concerns/questions. Garth Matthews DO, [facility] I spent a total of 30 minutes on the date of service in preparation, delivery, and documentation of the care provided to this patient, excluding any time spent in the performance of separately billed services. Subjective Patient resting in bed comfortably. Feeling well. Already has improvement in her dyspnea with ambulation in the room. Anxious for discharge. Review of Systems Review of Systems: All systems reviewed & are unremarkable except as noted in HPI & below Physical Exam Constitutional: WD/WN, vitals as above well developed; no acute distress Neck: trachea midline, no thyromegaly Respiratory: normal respiratory effort, lungs clear to auscultation Cardiovascular: RRR, no murmur, no edema Pacer site bandaged. Gastrointestinal (Abdomen): normal bowel sounds, soft, nontender, no hepatosplenomegaly Musculoskeletal: no cyanosis or clubbing, extremities motor strength 5/5 Neurologic: PERRL, EOMI, accommodation nl, no face palsy, no dysarthria Results & Data Vital Signs (Past 12 Hours) Vital Signs Temp Pulse Pulse Resp BP Pulse Ox Pulse Ox 05/27/24 08:17 36.7 C 60 17 151/88 H 95 05/27/24 07:50 63 05/27/24 04:08 36.4 C L 62 18 149/85 H 95 05/26/24 23:00 93 O2 Del Method O2 Del Method 05/27/24 08:17 Room Air 05/27/24 07:50 05/27/24 04:08 Room Air 05/26/24 23:00 Room Air Laboratory Results CBC 05/27/24 Range/Units 09:57 WBC 6.46 (4.8-10.8) K/ul RBC 3.79 L (4.20-5.40) M/uL Hgb 11.5 L (12.0-16.0) g/dl Hct 35.3 L (37.0-47.0) % Plt Count 156 (130-400) K/uL Comprehensive Metabolic Panel 05/27/24 Range/Units 09:57 Sodium 133 L (136-145) mmol/L Potassium 4.5 (3.5-5.1) mmol/L Chloride 102 (98-107) mmol/L Carbon Dioxide 27 (21-32) mmol/L BUN 19 (6-23) mg/dl Creatinine 1.06 (0.6-1.2) mg/dl Glucose 107 H (70-99(Fasting)) mg/dl Calcium 9.9 (8.6-10.3) mg/dl Intake and Output 05/26/24 05/27/24 05/27/24 22:59 06:59 14:59 Intake Total 150 / 300 150 / 300 Balance 150 / 300 150 / 300 Intake: Oral 150 / 300 150 / 300 Other: # Unmeasured Voids 2 2 Weight 61.6 kg Weight Measurement Method Built in [facility] Diagnostic Findings Telemetry reviewed: Atrial paced, ventricular sensed Pacemaker interrogation - reviewed with Paul rep. Normal function Post op chest xray: Impression: No active disease Medications Administered Current Inpatient Medications Acetaminophen (Acetaminophen 325 Mg Tab) 650 mg PO Q4H PRN PRN Reason: Pain or Fever Stop: 06/23/24 23:45 Last Admin: 05/26/24 14:03 Dose: 650 mg Aripiprazole (Aripiprazole 10 Mg Tab) 20 mg PO DAILY RADHIKA Stop: 06/24/24 08:59 Last Admin: 05/27/24 09:45 Dose: 20 mg Fluoxetine HCl (Fluoxetine Hcl 20 Mg Cap) 20 mg PO DAILY RADHIKA Stop: 06/24/24 08:59 Last Admin: 05/27/24 09:45 Dose: 20 mg Furosemide (Furosemide 20 Mg Tab) 20 mg PO QAM RADHIKA Stop: 06/24/24 08:59 Last Admin: 05/27/24 09:45 Dose: 20 mg Lamotrigine (Lamotrigine 100 Mg Tab) 200 mg PO HS RADHIKA; Protocol Stop: 06/24/24 20:59 Last Admin: 05/26/24 21:02 Dose: 200 mg Levothyroxine Sodium (Levothyroxine Sodium 88 Mcg Tablet) 88 mcg PO DAILYBB [facility] Stop: 06/24/24 06:29 Last Admin: 05/27/24 05:23 Dose: 88 mcg Losartan Potassium (Losartan Potassium 50 Mg Tab) 100 mg PO DAILY RADHIKA Stop: 06/24/24 08:59 Last Admin: 05/27/24 09:45 Dose: 100 mg Melatonin (Melatonin 3 Mg Tab) 1.5 mg PO HS PRN PRN Reason: Sleep Stop: 06/24/24 02:16 Nitroglycerin (Nitroglycerin Sl 0.4 Mg/Tab Tab) 0.4 mg SL Q5M PRN PRN Reason: Chest Pain Stop: 06/23/24 23:45 Timolol Maleate (Timolol Maleate 0.5% Op Soln 5 Ml Btl) 2 drops OP DAILY RADHIKA Stop: 06/24/24 08:59 Last Admin: 05/27/24 10:37 Dose: 2 drops
[2024-05-27 11:46] VITALS: BP 158/87; PULSE 63; TEMP 98.2; O2SAT 97
--- NOTE | 2024-05-27 11:49 | Discharge Summary ---
Date of Service May 27, 2024 Admission HPI Per Admitting Provider 73-year-old female with past medically history significant for hypothyroidism, prediabetes, hypertension, bradycardia, rectal prolapse, bilateral low-tension glaucoma mild stage, depression presents with shortness of breath. Patient states since last Monday was feeling short of breath. Climbing half flight of stairs making her short of breath. She is still going to the gym. Able to walk okay in the gym. Today she was in the gym and did some light weights and felt very exhausted. Denies any cough. Denies fevers. No runny nose or sore throat. No headache. No dizziness. Since last couple of weeks she has some blurred vision but seems it is getting better. No runny nose or sore throat. Denies any chest pain. No nausea. No abdominal pain. Appetite is okay. No difficulty swallowing. Normal bladder movements. Patient states since last few months she is having diarrhea in the morning 3-4 times. And she is almost taking loperamide every day. States she has chronic bradycardia with junctional rhythm. As per records since 2017 she was diagnosed with asymptomatic junctional rhythm. Thought to be from long use of lithium. With discontinuation of lithium depression worsened and also heart rates did not improved so lithium was restarted. But currently she is on Lamictal and lithium is stopped. As per the records she declined permanent pacemaker placement in the past. Her resting heart rates usually In the 40s and sometimes 30s per records.But with activity heart rates improve as per patient. Past medical history. As mentioned above. Past surgical history. Colonoscopy. EGD. Excision of rectal prolapse. Robotic laparoscopic proctopexy. Social history. . No smoking. Currently no alcohol use. No drug use. Family history. Mother had bipolar disorder. Brother has gout. Admission Exam Per Admitting Provider General- Not in distress Head- atraumatic Eyes- PERRL. ENT- oropharynx clear Neck- supple, no JVD. Lungs- clear to auscultation no wheezing or crackles Heart- regular rhythm;bradycardia, no murmur, . Abdomen- normal bowel sounds, soft, nontender, no distension Extremities- no pretibial edema, no erythema seen Neuro- alert, oriented PERRL, no facial palsy; no dysarthria; moves extremities. Principal Diagnosis Irreversible symptomatic sinus bradycardia Discharge Exam General- WD/WN F in NAD Eyes- PERRL. Neck- supple, no JVD. Lungs- clear to auscultation no wheezing or crackles Heart- regular rhythm, no murmur Chest - SYLWIA chest - surg. dressings Abdomen- normal bowel sounds, soft, nontender, no distension Extremities- Left sling, no pretibial edema, no erythema seen, moves extremities Neuro- alert, oriented PERRL, no facial palsy; no dysarthria; moves extremities. Discharge Data Allergies Allergy/AdvReac Type Severity Reaction Status Date / Time griseofulvin Allergy Intermediate Rash Verified 05/27/24 08:39 Consultations 05/24/24 20:34 ED Decision to Admit Stat 05/25/24 08:00 Consult Cardiology Routine Procedures Performed Operation Date: 05/26/24 11:45 Actual Procedures p Pacer with A/V Leads (Dual) - Mary Desai DO Ordered Studies 05/25/24 00:26 CT angio chest PE protocol Urgent FINDINGS: Mild dilatation of pulmonary trunk ,bilateral main pulmonary artery up to subsegmental level with mild tortuosity - suggest possibility of pulmonary arterial hypertension. MPA measures approximately 39 mm, right branch 27 mm and left branch 21 mm. Minimal right side pleural effusion with basal subsegmental collapse of lower lobes are seen Mild cardiomegaly with dialed IVC and hepatic vein showing contrast reflux - possibility of tricuspid regurgitation. Mosaic attenuation noted in bilateral lung parenchyma due to multiple hypoattenuating areas showing narrowing of vessels - possibly because of altered perfusion/small vessel disease. Adequate contrast bolus without evidence of pulmonary embolism. The central airways are patent. The aorta is of normal size and configuration. There are coronary artery and aortic atherosclerotic calcifications. No pericardial effusion is identified. The thyroid is unremarkable. No mediastinal, hilar, or axillary lymphadenopathy is noted. No suspicious lytic or sclerotic osseous lesions are identified. IMPRESSION: 1. No evidence of pulmonary embolism. 2. Mild dilatation of pulmonary trunk ,bilateral main pulmonary artery up to subsegmental level with mild tortuosity - suggest possibility of pulmonary arterial hypertension. 3. Minimal right side pleural effusion with basal subsegmental collapse of lower lobes are seen 4. Mild cardiomegaly with dialed IVC and hepatic vein- showing contrast reflux - possibility of tricuspid regurgitation. 5. Mosaic attenuation noted in bilateral lung parenchyma due to multiple hypoattenuating areas showing narrowing of vessels - possibly because of altered perfusion/small vessel disease. 05/25/24 07:05 US venous doppler LE BI Routine IMPRESSION: No evidence of lower extremity DVT. 05/26/24 11:45 EP Lab Images for PACS ONCE Hospital Course (1) SOB (shortness of breath): (1) SOB (shortness of breath): Plan: 73-yo F w/ hypothyroidism, prediabetes, hypertension, bradycardia, rectal prolapse, bilateral low-tension glaucoma mild stage, depression presents with shortness of breath. Patient states since last Monday was feeling short of breath. Climbing half flight of stairs making her short of breath. She is still going to the gym. Able to walk okay in the gym. Today she was in the gym and did some light weights and felt very exhausted. Denies any cough. Denies fevers. No runny nose or sore throat. No headache. No dizziness. Since last couple of weeks she has some blurred vision but seems it is getting better. No runny nose or sore throat. Denies any chest pain. No nausea. No abdominal pain. Appetite is okay. No difficulty swallowing. Normal bladder movements. Patient states since last few months she is having diarrhea in the morning 3-4 times. And she is almost taking loperamide every day. States she has chronic bradycardia with junctional rhythm. As per records since 2017 she was diagnosed with asymptomatic junctional rhythm. Thought to be from long use of lithium. With discontinuation of lithium depression worsened and also heart rates did not improved so lithium was restarted. But currently she is on Lamictal and lithium is stopped. As per the records she declined permanent pacemaker placement in the past. Her resting heart rates usually In the 40s and sometimes 30s per records.But with activity heart rates improve as per patient. Shortness of breath Since last Monday Chest x-ray possible congestion No obvious edema on exam BNP 1279 troponin 22 -> 19 Telemetry Echo - EF 55-60%. Junctional bradycardia Seems chronic Usually resting heart rates in 30s and 40s and improved with activity Thought to be from lithium Currently off of lithium Telemetry echo obtained Cardiology consulted - s/p cardiac pacemaker on (05/26/2024) Lifting and movement restrictions reviewed with the patient. She will have wound check and future device check at [facility] device clinic in about 7-10 days. Hypothyroidism On Synthyroid TSH 4.6 mild MARILIA Creatinine on admission 1.2 Baseline creatinine 1-1.1 current Cr 1 Hypertension On Lasix and olmesartan Will monitor Prediabetes HbA1c 5.2% Depression On aripiprazole and Lamictal Total Time Total Time Spent Total Time Spent (In Minutes): 40 Discharge Plan Discharge Items Patient Disposition: Home - Self-Care Reason For Visit: SOB,BRADYCARDIA Discharge Diagnosis: irreversible symptomatic sinus bradycardia Activity: As commented below Activity Comment: do not raise the left elbow over the left shoulder for 1 month Lifting: No more than 10 pounds Lifting Comment: do not lift more than 10 pounds with the left arm for 2 weeks Bathing: Keep incision dry Bathing Comment: keep dressing on & dry until wound check Non-emergency contact: Primary Care Provider and Public Welfare Worker Call non-emergency contact if: you have any medication questions and your symptoms worsen Follow-up/Referrals: Zafar Meza DO [Primary Care Provider] - (Date & Time 06/03/2024 11:20 AM Provider: Zafar Meza DO Family Practice [address] [facility], [place] ) Diet: Heart Healthy [facility] Attending Provider Instructions: Follow up with your primary care doctor and covering machine operator helper. Read instructions from your covering machine operator helper below, in detail. Do not raise the left elbow over the left shoulder for 1 month Do not lift more than 10 pounds with the left arm for 2 weeks Keep dressing on & dry until wound check-no shower Try to wear a sports bra or surgical bra for a few weeks to help with wound healing Device and wound check as scheduled at [facility] Card[facility] Pending Studies at Discharge: No Stand-Alone Forms: [facility], Smoking Cessation Medications and DC Order Prescriptions: Continued amoxapine 25 mg tablet 25 mg PO QPM glucos sul [id number] PO melatonin 3 mg tablet 3 mg PO HS multivitamin tablet 1 tab PO DAILY lithium carbonate 450 mg tablet extended release 450 mg PO DAILY fluoxetine [Prozac] 20 mg capsule 20 mg PO DAILY levothyroxine 88 mcg tablet 88 mcg PO DAILY cholecalciferol (vitamin D3) PO lamotrigine 200 mg tablet 200 mg PO HS levothyroxine 88 mcg tablet 88 mcg PO QAM furosemide 20 mg tablet 20 mg PO QAM timolol maleate 0.5 % drops 2 drp ophthalmic (eye) DAILY fluoxetine 20 mg capsule 20 mg PO DAILY olmesartan 40 mg tablet 40 mg PO DAILY aripiprazole 20 mg Tablet 20 mg PO DAILY melatonin 1 mg Tablet 1 mg PO HS PRN (Reason: Sleep) Glucosamine Chondroitin 550-30-1 mg Capsule 1 cap PO DAILY Discharge Orders: Discharge Order (Routine); Ordered 05/27/24 Ordered By: Carson Pratt Admission Data Admit Date/Time: 05/24/24 22:44 Attending Provider: Carson Pratt Admit Provider: Carlos Martinez Primary Care Provider: Zafar Meza Other Providers: Carlos Martinez; Mary Desai
--- NOTE | 2024-05-27 13:29 | Electrocardiogram Report ---
Test Reason : Blood Pressure : */* mmHG Vent. Rate : 33 BPM Atrial Rate : * BPM P-R Int : * ms QRS Dur : 84 ms QT Int : 374 ms P-R-T Axes : * -24 127 degrees QTcB Int : 276 ms Junctional bradycardia with retrograde conduction Septal infarct , age undetermined Abnormal ECG No previous ECGs available Confirmed by Michael Dodd ([id number]) on 05/27/2024 1:28:30 PM Referred By: REFERRED SELF Confirmed By: Michael Dodd
--- NOTE | 2024-05-27 13:31 | Electrocardiogram Report ---
Test Reason : Blood Pressure : */* mmHG Vent. Rate : 43 BPM Atrial Rate : * BPM P-R Int : * ms QRS Dur : 92 ms QT Int : 364 ms P-R-T Axes : * -17 152 degrees QTcB Int : 307 ms Junctional bradycardia with occasional conducted premature beats Abnormal ECG When compared with ECG of 24-May-2024 18:06, (unconfirmed) No significant change Confirmed by Michael Dodd ([id number]) on 05/27/2024 1:30:59 PM Referred By: REFERRED SELF Confirmed By: Michael Dodd
--- NOTE | 2024-05-27 13:52 | Electrocardiogram Report ---
Test Reason : Blood Pressure : */* mmHG Vent. Rate : 38 BPM Atrial Rate : * BPM P-R Int : * ms QRS Dur : 82 ms QT Int : 466 ms P-R-T Axes : * -13 117 degrees QTcB Int : 370 ms Junctional bradycardia with retrograde conduction Abnormal ECG When compared with ECG of 24-May-2024 18:39, (unconfirmed) Inverted T waves have replaced nonspecific T wave abnormality in Lateral leads Confirmed by Michael Dodd ([id number]) on 05/27/2024 1:52:13 PM Referred By: REFERRED SELF Confirmed By: Michael Dodd
--- NOTE | 2024-05-27 16:00 | Electrocardiogram Report ---
Test Reason : Blood Pressure : */* mmHG Vent. Rate : 40 BPM Atrial Rate : * BPM P-R Int : * ms QRS Dur : 86 ms QT Int : 450 ms P-R-T Axes : * -13 147 degrees QTcB Int : 366 ms Junctional bradycardia with retrograde conduction Abnormal ECG When compared with ECG of 25-May-2024 05:52, (unconfirmed) No significant change Confirmed by Michael Dodd ([id number]) on 05/27/2024 4:00:08 PM Referred By: REFERRED SELF Confirmed By: Michael Dodd
--- NOTE | 2024-05-29 15:33 | Electrocardiogram Report ---
Test Reason : Blood Pressure : */* mmHG Vent. Rate : 60 BPM Atrial Rate : 60 BPM P-R Int : 192 ms QRS Dur : 90 ms QT Int : 440 ms P-R-T Axes : 67 -28 97 degrees QTcB Int : 440 ms Atrial-paced rhythm T wave abnormality, consider lateral ischemia Abnormal ECG No previous ECGs available Confirmed by Michael Dodd ([id number]) on 05/29/2024 3:33:00 PM Referred By: REFERRED SELF Confirmed By: Michael Dodd
--- NOTE | 2024-06-12 21:23 | Operative Report ---
Post Operative Report DICTATED BY:Mary Desai D.O. DATE OF PROCEDURE: 05/26/2024 PREOPERATIVE DIAGNOSES: SSS and irreversible symptomatic sinus bradycardia POSTOPERATIVE DIAGNOSIS: Same PROCEDURE: A dual-chamber rate responsive permanent pacemaker, along with a intraoperative HIS bundle EGM recordings peripheral venogram under fluoroscopic guidance. SURGEON: Mary Desai DO ASSISTANTS: None. ANESTHESIA: Monitored conscious sedation administered under my supervision by Laurence Encinas. Start time 12:17, end time 13:31, a total of 3 mg of Versed and 75 mcg of fentanyl. INTRAVENOUS FLUIDS: 0 mL. CONTRAST: 25 mL. ANTIBIOTICS: 1 grams of Ancef. ADDITIONAL MEDICATIONS: None BLOOD LOSS: 50 mL. URINE OUTPUT: Not applicable. SPECIMENS: None. FINDINGS: See below. DRAINS: None. COMPLICATIONS: None. CONDITION: Stable. INDICATIONS: This is a 74-year-old female who has a past medical history CAD, HTN, HLD, OA, Hypothyroidism, LAFB, prediabetes, junctional rhythms, SSS and irreversible sinus bradycardia which had been worsening and she came to ER. She had been recommended a pacemaker for many years and she is now in agreement to having one prior to hospital discharge. CONSENT: Consent was obtained prior to the patient going into the electrophysiology lab. The patient was informed of the risks, benefits, and alternatives to the procedure. Risks include, but not limited to, sudden cardiac , cardiac arrhythmias, cerebrovascular accident, myocardial infarction, injury to his blood vessels, chamber of the heart and lung, bleeding and infection. The patient understood these risks and agreed to the procedure as planned. Informed consent was obtained. DESCRIPTION OF PROCEDURE: The patient was brought into electrophysiology lab in a fasting state. She was connected to continuous cardiac monitoring. A timeout was performed to ensure the patient's identity and procedure correctly. She was prepped and draped in the left infraclavicular space in normal surgical standard fashion. Monitored conscious sedation was given throughout the procedure for the patient's comfort level. [place] precautions were maintained throughout the procedure. Prophylactic antibiotics were given prior to incision. A 20 mL of 1% lidocaine and bupivacaine mixture were given in the left deltopectoral groove. An incision was made in the left deltopectoral groove. Blunt dissection was performed down to the pectoralis muscle. Then, using blunt dissection over the pectoralis muscle within the pectoral fascia, a pacemaker pocket was created. Then, a peripheral venogram was performed to identify the axillary vein. Of note I ended up doing 2 peripheral venograms. Venous axillary access was obtained through a needlestick without any problems. A guidewire was inserted without any resistance. A 6-Senegalese sheath was inserted over the guidewire without any resistance. Dilator was removed and a second guidewire was inserted through the sheath to allow for retained venous access. Then a 9 Senegalese sheath was inserted over one of the guidewires. The guidewire and dilator were removed. Then, the CPS Black Leather Buffer 3D large sheath was inserted through the 9-Senegalese sheath over a Glidewire into the right ventricle. The Glidewire and dilator were removed. Then, the left bundle lead was advanced through the sheath and intracardiac electrogram His bundle recordings were performed when the camera was in WHITE 10. Once I had an idea where the His bundle was-as I could not see a clear HIS. I then moved the camera to WHITE 30 and marked where I estimated the His bundle was on my fluoroscopy screen. I came down about 2 cm from this in a line that would extend out to the apex and then started coming on pacing. Once I found an area where I had a nice W formed pace complex in my lead V1, I then moved the camera to UZBEK 30. Then the helix was extended into the septum. Then the helix locking tool was placed. Then the lead was screwed further into the septum while pacing by giving slow clockwise turns. The paced complex changed to a nice R' in V1 and the pacing stim to peak QRS in V6 was good. I did need to reposition the lead a few times before it advanced nicely. I then gave contrast through the sheath to see how far the lead was into the septum and then I slit the CPS Black Leather Buffer 3D large sheath under fluoroscopic guidance and left the 9-Senegalese sheath in while I positioned the right atrial lead. A 6-Senegalese sheath was inserted over the retained guidewire, the guidewire and dilator removed. The right atrial lead was then advanced into right atrium and positioned into right atrial appendage under fluoroscopic guidance. There was adequate pacing and sensing thresholds and no diaphragmatic stimulation with high output pacing. The 6-Senegalese sheath was peeled away and the lead was fixated to the pectoralis muscle using 0 silk suture. The 9-Senegalese sheath around the left bundle lead was peeled away and the lead was fixated to pectoralis muscle using 0 silk suture. The pocket was flushed with copious amounts of vancomycin and saline wash and inspected for hemostasis. The leads were then attached to the pulse generator making sure the pins were in appropriate position, passed set screws, and set screws were all tightened. Pulse generator was then placed in the pocket, making sure the leads were lying flat beneath the device. The incision was closed in a 3-layer fashion using 2-0 Vicryl interrupted suture, followed by 3-0 Vicryl interrupted suture, followed by 4-0 Monocryl running stitch. Then a primaseal dressing was placed EQUIPMENT: 1. Pulse generator is a [employer] MRI Model Number [id number] SN: [id number] 2. Right atrial lead, [employer] UlitPace [id number] SN: [id number] 3. Left bundle lead, [employer] UltiPace [id number] SN: [id number] INTRAPROCEDURAL FINDINGS: 1. Intracardiac electrogram His bundle recordings, AH is 96 milliseconds, HV is 43 milliseconds. 2. Right atrial lead, P waves 3.1 millivolts, impedance 650 ohms, threshold 1.5 volts at 0.5 milliseconds. 3. Left bundle lead, R waves 7.0 millivolts, impedance 817 ohms, threshold 1.2 volts at 0.5 milliseconds. FINAL MEASUREMENTS THROUGH THE DEVICE: 1. Right atrial lead, P waves none pt is still paced at 30bpm, impedance 810 ohms, threshold 1 volt at 0.4 milliseconds. 2. Left bundle lead, R waves 8.5 millivolts, impedance 740 ohms, threshold 1.0 volts at 0.4 milliseconds. FINAL PARAMETERS: DDDR 60/130, right atrial amplitude 3.5 volts, pulse width 0.4 milliseconds, sensitivity 0.3 millivolts. Left bundle lead amplitude 3.5 volts, pulse width 0.4 milliseconds, sensitivity 2 millivolts. IMPRESSION: Successful dual chamber rate responsive permanent pacemaker under fluoroscopic guidance along with peripheral venogram and intracardiac electrogram His bundle recordings, all under fluoroscopic guidance secondary to SSS/irreversible symptomatic sinus bradycardia. PLAN: Monitor the patient post-procedure. A 12-lead ECG, chest x-ray. She is not to lift the left elbow or left shoulder for 1 month. She cannot lift more than 10 pounds with the left arm for 2 weeks. She is to keep the dressing on and dry until her wound check in 10 days.
== END 2024-05-27 12:30 | disposition home or self-care (01) | DRG 243 ==
LOC: EDBD → ED 17:37 → SUATTDRO 22:44 → MERGE 22:44 → 2S 22:44

== ENCOUNTER 2024-07-12 10:03 | Inpatient (IN) ==
[2024-07-12 10:46] LABS: Basophils # (auto) 0.03 K/uL (0.00-0.20); Basophils % (auto) 0.3 %; Eosinophils # (auto) 0.03 K/uL (0.00-0.50); Eosinophils % (auto) 0.3 %; Hematocrit (blood only) 41.2 % (37.0-47.0); Hemoglobin 13.5 g/dl (12.0-16.0); Immature Granulocytes # (auto) 0.04 K/uL (0.01-0.20); Immature Granulocytes % (auto) 0.4 %; Lymphocytes # (auto) 1.19 K/uL (1.20-3.40); Lymphocytes % (auto) 13.1 %; Mean Corpuscular Hemoglobin 29.1 pg (25.0-34.0); Mean Corpuscular Hgb Conc 32.8 g/dL (32.0-36.0); Mean Corpuscular Volume 88.8 fL (80.0-100.0); Mean Platelet Volume 8.7 fL (9.4-12.4); Monocytes % (auto) 5.5 %; Neutrophils # (auto) 7.26 K/uL (1.40-6.50); Neutrophils % (auto) 80.4 %; Platelet Count 265 K/uL (130-400); RDW Coefficient of Variation 11.7 % (11.5-14.5); RDW Standard Deviation 37.4 fL (36.4-46.3); Red Blood Count 4.64 M/uL (4.20-5.40); White Blood Count 9.05 K/ul (4.8-10.8)
[2024-07-12 10:49] LABS: Appearance Urine Clear (Clear); Bacteria Urine Automated None Seen (None Seen); Bilirubin Urine Negative (Negative); Blood Urine Negative (Negative); Cast Urine Automated 0-2 /lpf (0-2); Color Urine Yellow; Epithelial Cell Urine Auto 0-2 /hpf (0-2); Glucose Urine UA Negative (Negative); Ketones Urine Negative (Negative); Leukocyte Esterase Urine Trace (Negative); Nitrite Urine Negative (Negative); Protein Urine Negative (Negative); RBC Urine Automated 0-2 /hpf (0-2); Specific Gravity Urine 1.007 (1.000-1.030); Urobilinogen Urine Negative (Negative); WBC Urine Automated 0-5 /hpf (0-5); pH Urine 6.5 (4.5-7.5)
[2024-07-12 11:05] LABS: Acetaminophen < 3 ug/ml (10-30); Lithium < 0.1 mmol/L (0.6-1.2); Salicylate < 3.0 mg/dl (3.0-30); Valproic Acid < 10 mcg/ml (50-100)
--- NOTE | 2024-07-12 11:05 | Emergency Department Note ---
Impression & Plan Depression ED Provider Note Provider: Tk Kellogg MD CHIEF COMPLAINT: Depression, suicidal thoughts HISTORY OF PRESENT ILLNESS: Patient is a 74-year-old female significant past medical history including CAD with CHF/bradycardia with now with pacemaker, hypothyroidism, and bipolar disorder presenting here today with . Patient been on lithium and stable for a long time. Decades ago and depression and psychiatric issues and brief attempt with a plastic bag to harm her self in the 1980s. No prior inpatient psychiatric care. Has been stable for a long time but occasionally followed with wheezes. They thought that lithium was causing bradycardia and heart issues and pacemaker was placed beginning of May. Denies any further shortness of breath or "heart "issues. States however she has been dealing with worsening depression and this morning had thoughts of wanting to kill himself. Thought about going into the garage with the car to fixate herself. She denies actually doing this and the is taken the keys. States she motivated much although did go to the store and go to the gym for an hour yesterday. Has been laying around. Did talk with her providers at [facility] who she has been with her several years but they would not start her back on lithium. She states she needs to be back on this. They did switch medications and start Vraylar on Monday but no significant change at this time. No homicidal thoughts or hallucinations reported. Family history of psychiatric issues reported. No drug or alcohol issues reported PAST MEDICAL HISTORY: As noted above MEDICATIONS: Reviewed home medications FMH: Depression/bipolar mother/brother SOCIAL HISTORY: PHYSICAL EXAM: GENERAL: alert and oriented in no acute distress on bed at bedside Head: normocephalic and atraumatic EYES: No injection, discharge or icterus. EOMI. NECK: Trachea midline. ENT: Mucous membranes pink and moist. LUNGS: Airway patent. No retractions. Breath sounds HEART: Regular rate and rhythm. No chest wall tenderness SKIN: Acyanotic, warm, dry, without rashes EXTREMITIES: Without swelling, tenderness or deformity NEUROLOGICAL: No focal deficits. No aphasia. No facial droop or slurred speech. Ambulatory. Psych: Flattened affect. Reports hopelessness and depression but denies active SI at this time does admit to it earlier today. No HI reported response to external stimuli. EK bpm atrially paced rhythm without acute ST segment elevation or depression. QTc 412. Left anterior fascicular block noted. Patient's laboratory studies reviewed. Differential includes Mood disorder, infection, hypoglycemia, electrolyte abnormalities, cardiac sources, intracerebral event, toxicologic, trauma, neurologic, as well as other pathologies. IMPRESSION/MEDICAL DECISION MAKING: Patient with flat affect. Reports depressed and anhedonia and had suicidal plan and thoughts this morning but did not act on it. Basic blood obtained here. Reviewed discharge summary from the beginning of May here regarding recent pacemaker placement and cardiac issues. Patient's endorsing improvement of this. Since cessation of her lithium psychiatric medication states her mood and depression have significantly worsened however. Believe she may need inpatient psychiatric care. Has been trying to reach out to various outpatient providers without success. No history of inpatient care reported in the past. Significant family history reported. Basic blood work obtained as well as EKG. no significant anemia or leukocytosis. No concerning electrolyte abnormality or signs of significant renal function. No evidence of UTI. Normal LFTs. Gause valproic levels undetectably low. Negative alcohol level. Seen with case worker here. Given the severity of her symptoms and thoughts of SI with plan earlier today recommend inpatient treatment. Patient again with concerns that she needs to be back on lithium for stability. Evaluated by [facility] inpatient psych here and will come in under voluntary basis for further inpatient treatment. 201 completed. DIAGNOSIS: Depression/mood disorder DISPOSITION: Further care on [facility] inpatient psychiatric unit. Past Med/Surg History Problem List (Updated 07/12/24 @ 13:06 by Tk Kellogg M.D.) S/P cardiac pacemaker procedure Coronary atherosclerosis of [place] coronary artery Dyslipidemia, goal LDL below 70 HTN, goal below 130/80 Elevated troponin Symptomatic bradycardia Congestive heart failure (Acute) Junctional bradycardia (Acute) Bradycardia (Acute) SOB (shortness of breath) (Acute) Acquired hypothyroidism (Acute) Bipolar disorder (Acute) Depression (Acute) Junctional bradycardia (Acute) Rectal prolapse (Acute) Medical History History of gastrointestinal procedure Moderate cervical dysplasia Surgical History H/O wrist surgery History of rectal surgery S/P LEEP (loop electrosurgical excision procedure) Family History Mother Bipolar disorder Alzheimer disease Renal failure Social History (System 05/27/24 @ 08:39 by Sally Valencia) Smoking Status: Never smoker Do You Dip or Chew Tobacco: No; Hx Alcohol Use: Yes Hx Substance Use: No Preferred Language: Jordanian Communication Ability: Effective [employer] Required: No Beliefs That Will Affect Care: Confucianism Confucianism Beliefs: Hindu Current Living Situation: Spouse Feels Safe at Home: Yes and Hesitant to Answer Gender Identity: Female Assistive Devices: None Allergies Allergies Allergy/AdvReac Type Severity Reaction Status Date / Time griseofulvin Allergy Intermediate Rash Verified 05/27/24 08:39 Home Meds Home Medications Medication Instructions Recorded Confirmed glucos sul [id number] See Rx Instructions .Route .COMPLEX 10/22/18 07/12/24 [Glucosamine Chondroitin] cholecalciferol (vitamin D3) 1,000 units PO DAILY 02/14/20 07/12/24 furosemide 20 mg tablet 20 mg PO QAM 05/24/24 07/12/24 lamotrigine 200 mg tablet 200 mg PO HS 05/24/24 07/12/24 levothyroxine 88 mcg tablet 88 mcg PO QAM 05/24/24 07/12/24 melatonin 1 mg tablet 1 mg PO HS PRN Sleep 05/24/24 07/12/24 olmesartan 40 mg tablet 40 mg PO DAILY 05/24/24 07/12/24 timolol maleate 0.5 % eye drops 2 drp ophthalmic (eye) DAILY 05/24/24 07/12/24 Fish Oil 500 mg PO DAILY 07/12/24 07/12/24 Lomotil 2 mg PO DAILY 07/12/24 Norvasc 5 mg PO DAILY 07/12/24 07/12/24 Vraylar 1.5 mg PO DAILY 07/12/24 07/12/24 divalproex 250 mg PO DAILY 07/12/24 07/12/24 Results & Data (ED) Vital Signs Vital Signs - 24 hr 07/12/24 10:04 07/12/24 13:23 Temperature 36.7 C 37.1 C Temperature Source Temporal Artery Scan Oral Pulse Rate 60 Pulse Rate [Right Finger] 60 Pulse Rhythm Regular Pulse Rhythm [Right Finger] Regular Pulse Strength Normal Pulse Strength [Right Finger] Normal Respiratory Rate 17 19 Respiratory Effort / Characteristics Non-Labored Spontaneous Non-Labored Spontaneous Respiratory Depth Normal Normal Respiratory Pattern Regular Blood Pressure 165/97 H Blood Pressure [Right Arm] 150/88 H Blood Pressure Mean 119 Blood Pressure Mean [Right Arm] 108 Blood Pressure Position Sitting Pulse Oximetry 100 99 Oxygen Delivery Method Room Air Room Air Sepsis Recent Fever Within 48 Hours No Sepsis New/Unexplained Change in Mental Status N/A Sepsis Action Taken by Nursing No Action Required Laboratory Data 07/12/24 10:28 07/12/24 10: Lab Results 07/12/24 Range/Units 10:28 WBC 9.05 (4.8-10.8) K/ul RBC 4.64 (4.20-5.40) M/uL Hgb 13.5 (12.0-16.0) g/dl Hct 41.2 (37.0-47.0) % MCV 88.8 (80.0-100.0) fL MCH 29.1 (25.0-34.0) pg MCHC 32.8 (32.0-36.0) g/dL RDW Std Deviation 37.4 (36.4-46.3) fL RDW Coeff of Mauricio 11.7 (11.5-14.5) % Plt Count 265 (130-400) K/uL MPV 8.7 L (9.4-12.4) fL Immature Gran % (Auto) 0.4 % Neut % (Auto) 80.4 % Lymph % (Auto) 13.1 % [place] % (Auto) 5.5 % Eos % (Auto) 0.3 % Baso % (Auto) 0.3 % Neut # (Auto) 7.26 H (1.40-6.50) K/uL Lymph # (Auto) 1.19 L (1.20-3.40) K/uL [place] # (Auto) 0.50 (0.11-0.59) K/uL Eos # (Auto) 0.03 (0.00-0.50) K/uL Baso # (Auto) 0.03 (0.00-0.20) K/uL Immature Gran # (Auto) 0.04 (0.01-0.20) K/uL Sodium 137 (136-145) mmol/L Potassium 4.0 (3.5-5.1) mmol/L Chloride 100 (98-107) mmol/L Carbon Dioxide 32 (21-32) mmol/L Anion Gap 5 (3-11) BUN 16 (6-23) mg/dl Creatinine 1.17 (0.6-1.2) mg/dl Est Cr Clr Drug Dosing 34.0 ml/min eGFR 49.27 BUN/Creatinine Ratio 13.7 (10-20) Glucose 85 (70-99(Fasting)) mg/dl Calcium 10.6 H (8.6-10.3) mg/dl Total Bilirubin 0.4 (0.2-1.0) mg/dl AST 23 (13-39) U/L ALT 19 (7-52) U/L Alkaline Phosphatase 99 (34-104) U/L Total Protein 7.8 (6.0-8.3) gm/dl Albumin 4.7 (3.4-5.0) gm/dl Globulin 3.1 (2.5-4.0) gm/dl Albumin/Globulin Ratio 1.5 (0.9-2) TSH 1.475 (0.300-4.500) uIu/ml Urine Color Yellow Urine Appearance Clear (Clear) Urine pH 6.5 (4.5-7.5) Ur Specific [place] 1.007 (1.000-1.030) Urine Protein Negative (Negative) Urine Glucose (UA) Negative (Negative) Urine Ketones Negative (Negative) Urine Blood Negative (Negative) Urine Nitrite Negative (Negative) Urine Bilirubin Negative (Negative) Urine Urobilinogen Negative (Negative) Ur Leukocyte Esterase Trace H (Negative) Urine WBC (Auto) 0-5 (0-5) /hpf Urine RBC (Auto) 0-2 (0-2) /hpf U Hyaline Cast (Auto) 0-2 (0-2) /lpf U Epithel Cells (Auto) 0-2 (0-2) /hpf Urine Bacteria (Auto) None Seen (None Seen) Salicylates < 3.0 L (3.0-30) mg/dl Urine Opiates Screen Neg (Neg) Ur Methadone, Qual Neg (Neg) Urine Fentanyl Screen Neg (Neg) Acetaminophen < 3 L (10-30) ug/ml Urine Barbiturates Neg (Neg) Valproic Acid < 10 L (50-100) mcg/ml Ur Phencyclidine (PCP) Neg (Neg) U Amphetamin/Meth Scrn Neg (Neg) MDMA (Ecstasy) Screen Neg (Neg) U Benzodiazepines Scrn Neg (Neg) Gause < 0.1 L (0.6-1.2) mmol/L Ur Cocaine Metabolite Neg (Neg) U Marijuana (THC) Screen Neg (Neg) Ethyl Alcohol mg/dL < 10.0 (<10.0) mg/dl SARS-CoV-2, RNA, NAAT NEGATIVE (NEGATIVE) Discharge Plan Visit Data Chief Complaint: Mental Health Evaluation Stated Complaint: DEPRESSION ED Provider: Tk Kellogg Discharge Problem: Depression Discharge Instructions Interventions: ED Discharge Assessment Last Done: 07/12/24 13:24
[2024-07-12 11:06] LABS: Albumin Globulin Ratio 1.5 (0.9-2); Albumin Level 4.7 gm/dl (3.4-5.0); BUN Creatinine Ratio 13.7 (10-20); Bilirubin,Total 0.4 mg/dl (0.2-1.0); Calcium 10.6 mg/dl (8.6-10.3); Globulin 3.1 gm/dl (2.5-4.0); Total Protein 7.8 gm/dl (6.0-8.3)
[2024-07-12 11:15] LABS: Amphetamines+Metham, Urine Neg (Neg); Barbiturates, Urine Neg (Neg); Benzodiazepine, Urine Neg (Neg); Cocaine, Urine Neg (Neg); Fentanyl, Urine Neg (Neg); MDMA (Ecstacy), Urine Neg (Neg); Marijuana, Urine Neg (Neg); Methadone, Urine Neg (Neg); Opiate, Urine Neg (Neg); Phencyclidine, Urine Neg (Neg)
[2024-07-12 12:08] LABS: Thyroid Stimulating Hormone 1.475 uIu/ml (0.300-4.500)
--- NOTE | 2024-07-12 14:33 | Electrocardiogram Report ---
Test Reason : Blood Pressure : */* mmHG Vent. Rate : 60 BPM Atrial Rate : 60 BPM P-R Int : 190 ms QRS Dur : 88 ms QT Int : 412 ms P-R-T Axes : 103 -50 80 degrees QTcB Int : 412 ms Atrial-paced rhythm Left anterior fascicular block Abnormal ECG When compared with ECG of 27-May-2024 06:33, T wave amplitude has increased in Inferior leads T wave inversion less evident in Lateral leads Confirmed by Altaf Yung ([id number]) on 07/12/2024 2:33:15 PM Referred By: REFERRED SELF Confirmed By: Altaf Yung
[2024-07-12] MEDS ORDERED: SODIUM CHLORIDE 0.65% NA SOLN 45 ML (OCEAN) PRN (15:57)
[2024-07-12] MEDS ORDERED: hydrOXYzine HCl 25 MG TAB PO PRN ×2 (15:57)
[2024-07-12] MEDS ORDERED: ALUMINUM/MAGNESIUM SUSP 30 ML UDC PO PRN (15:57)
[2024-07-12] MEDS ORDERED: BISMUTH SUBSALICYLATE 262 MG CHEW PO PRN (15:57)
[2024-07-12] MEDS ORDERED: MAGNESIUM HYDROXIDE SUSP 30 ML UDC PO PRN (15:57)
[2024-07-12 16:44] VITALS: RESP 16
[2024-07-12] MEDS: ACETAMINOPHEN 325 MG TAB PO PRN (20:58)
[2024-07-12] MEDS: lamoTRIgine 100 MG TAB PO SCH (20:59)
[2024-07-13] MEDS: LEVOTHYROXINE SODIUM 88 MCG TABLET PO SCH (06:26)
[2024-07-13] MEDS: amLODIPine BESYLATE 5 MG TAB PO SCH (08:30)
[2024-07-13] MEDS: CARIPRAZINE HCL 1.5 MG CAP PO SCH (08:30)
[2024-07-13] MEDS: LOSARTAN POTASSIUM 50 MG TAB PO SCH (08:30)
[2024-07-13] MEDS: OMEGA-3 (PURIFIED FISH OIL) 1 GM CAP PO SCH (08:30)
[2024-07-13] MEDS: CHOLECALCIFEROL 25 MCG (1000 UNITS) TAB PO SCH (08:30)
[2024-07-13] MEDS: FUROSEMIDE 20 MG TAB PO SCH (08:30)
[2024-07-13] MEDS: GLUCOSAMINE SULFATE 500 MG CAP PO SCH (08:30)
[2024-07-13] MEDS: TIMOLOL MALEATE 0.5% OP SOLN 5 ML BTL OPB SCH (08:31)
[2024-07-13] MEDS: LOPERAMIDE HCL 2 MG CAP PO SCH (08:33)
--- NOTE | 2024-07-13 09:31 | History & Physical ---
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 Diagnostically consistent with bipolar disorder type II major depressive e pisode. She reports worsening depressive symptoms since January 2024, including now intensified suicidal ideation. Recent medication trials have been ineffective. Discussed medication and alternative treatment options in detail including antipsychotics approved for bipolar depression, mood stabilizers, antidepressants, Wellbutrin, and ECT. Discussed risks, benefits and alternatives. She considered various options but she wants to start Ozawkie despite potential cardiac risks, as she had an excellent response in the past. Risks including significant cardiac risks (Brugada pattern, arrhythmias, sudden cardiac , QTC changes, bradycardia, myocardial ischemia and cymro heart association risk statement for cardiotoxicity potential), thyroid, renal, need for hydration/dehydration risks, need to avoid NSAIDs/PARAS/ARB and potential for lithium toxicity and fatality were discussed and carefully reviewed. After considerable risk/benefit discussion and option to involve cardiology or h ospitalist input via inpatient consultation prior to initiation of medication she declines option for consultation and desiring starting Ozawkie. She feels that the potential benefits of feeling better and getting relief from depression with Ozawkie use and improved quality of life, even if it shortens her lifespan or leads to irreversible cardiac damage, far outweighs the risks of using Ozawkie even with her underlying conditions of preexisting cardiac disease with pacemaker and HTN. She accepts the cardiac risks and understanding that typically Ozawkie is avoided in those with cardiovascular disease or arrhythmias but she is also deemed to have decision making capacity to evaluate risks/benefits and to make an informed treatment decision for herself. Baseline labs of thyroid function, kidney function, weight, electrolytes, LFTs, CBC, and UA and EKG from ED were preformed and reviewed independently and with her. Discussed recommendation forbaseline EKG (done yesterday in ED and reviewed cardiology interpretation) and follow-up EKG at least every 6 to 12 months and close cardiology follow-up (reference: Mauricio [email or web address]-induced electrocardiographic changes: a complete review. https://pubmed.ncbi.nlm.nih.gov/53849986/ Clin Cardiol. 2017;40(12):2142-7933). She also consents to discontinuing Vraylar to reduce polypharmacy, Cozaar and Lasix to reduce risk for lithium toxicity, decrease Lamictal to reduce polypharmacy and potential exacerbation of cardiac risks, and to closely monitor calcium channel maurice risks with concurrent Ozawkie. Will monitor serum lithi um levels, obtain EKG, and continue other current medications. Overall I spent a total of 120 minutes for this admission including review of chart records, review of labwork, direct evaluation of the patient, counseling the patient, ordering medication, risk assessment, discussion with the psychiatric liason RN and documentation in the electronic health record. (1) S/P cardiac pacemaker procedure: (2) Coronary atherosclerosis of [place] coronary artery: (3) HTN, goal below 130/80: (4) Bipolar disorder with severe depression: (5) Bipolar II disorder with seasonal pattern: (6) Depression with suicidal ideation: Plan 07/13/2024: The patient was admitted to the [facility] ([facility]) on q15 min checks (behavioral with suicide precautions) for safety. The patient will participate in group, recreational, and milieu therapies and will be offered additional individual and family sessions as clinically appropriate. -Start Ozawkie 300mg HS (goal of keeping at very low dose to minimize risks) -Discontinue Vraylar -Discontinue Lasix, Cozaar -Decrease Lamictal from 200mg HS to 150mg HS -Continue amlodipine (monitor closely as can increase risk for lithium toxicity) -Continue to monitor BP closely especially with discontinuation of two anti- hypertensives for initiation of Ozawkie -Ozawkie level in 2-3 days (sooner than normal due to amlodipine use and her age) -Plan for EKG in 2-3 days to ensure no significant changes with Ozawkie initiation -Continue to discuss options for increased outpatient support including therapy referrals, potentially may benefit from psychiatry within [facility] for easier care coordination among specialties 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 Assets Strengths: supportive relationships, willing to get treatment Needs: safety and stabilization, medication adjustment, additional coping skills, increased outpatient services Suicide Risk Level Suicide Risk Level: High-Moderate (q15 min suicide checks) (severe depression with SI with plan prior to admission but feels safe in the hospital and feels able to ask for support if needed) Suicide Risk Level Comments: Risk Factors Assessment Male: No : Yes Do You Have Access To A Gun?: No ( has handgun, but only he is able to access safe that where located) Health Problems: Yes Mental Health Diagnoses: Yes Substance Use Disorders: No Previous Attempt: Yes Family History of Suicide: No Previous Psychiatric Hospitalization: No Hopelessness: Yes Protective Factors Assessment Presybeterian Beliefs: Yes : Yes 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 Chief Complaint "I hate to go to sleep because then have to start climbing back out of the hole again each morning". History of Present Illness Ruth presents for psychiatric admission for worsening depression and SI with plan of carbon monoxide poisoning in the context of some chronic psychosocial stressors including isolation from family and recently changed churches due to her 's interpersonal conflict with various family members/druze leaders but without any acute precipitating events. She reports her depression came on farily abruptly and has continued to worsen after RSV infection in January and a short prednisone course and "it was shortly thereafter that things crashed". She reports "just being really down", low motivation, low confidence, struggling with what to do with herself, anhedonia, feelings of hopelessness, helplessness, energy level has decreased but she forces herself to maintain her routine, appetite low though she eats because she knows she should. Sleep patterns are consistent. Has been having suicidal thoughts since January but "waxed and waned". Recently increased after being told Ozawkie couldn't be started by her outpatient psychiatric provider as they felt uncomfortable starting this. Follwing this she started to have increased SI and thought about dying by CO poisoning. She asked her to hide the car keys so she wouldn't act on these thoughts. However she then found herself looking for the car keys and at that point told her he needed to bring her to the hospital as she felt unable to remain safe. History of Ozawkie of 300mg-450mg for >20 years with excellent mood benefits, had no episodes of depression during this time and felt she got her life back. She stopped in 2017 or 2019 after cardiology recommendation due to junctional rhythm seen on EKG. She has continued to have periods of bradycardia and dada ctional rhythm despite being off Ozawkie for many years with recent pacemaker placement. She has tried several medications since discontinuing lithium in 2019, including Lamictal, Prozac, Abilify, and most recently Vraylar, with limited effectiveness. She expresses a strong desire to restart lithium, which she reports worked well for her in the past, giving her "20 good years" of mood stability. She is now willing to accept potential risks with Ozawkie given the severity of her current depression and feels that this is the only medication that has ever worked for her depression. In the past she responded quickly to lithium often feeling better within just 5-6 days. Outpatient providers have been reluctant to restart her on Ozawkie, despite her ongoing depressive episode, due to cardiac concerns including recent pacemaker placement last month due to bradycardia. She is currently taking lamictal 200mg HS (has been on this since stopping Ozawkie, but hasn't helped current depressive episode), Vraylar (1.5mg daily, started three days ago), melatonin at HS and recently prescribed Depakote but did not start this. Psychiatric ROS notable for no current nor history of symptoms of psychosis, PTSD, OCD nor eating disorder. History of likely hypomania with buying more items but never with extended periods without sleep. Significant family history of bipolar disorder type I in her mother and multiple family members have responded very well to Ozawkie for depression/mood stabilization. Past Psychiatric History Current Psychiatric Diagnosis: Bipolar, depression Outpatient Services: Kristine at [facility] no current therapist Previous Psych Admissions: none Do You Have Access To A Gun?: No ( has handgun, but only he is able to access safe that where located) History of Previous Suicide Attempt: Yes Describe Attempts in the Past: attempted suffocation ~ age 38, lithium subsequently started Past Medication Trials: -fluoxetine 20mg daily up to 30mg (recently discontinued) -hx Abilify (May 2024) -Depakote recently prescribed but never started -Wellbutrin (many years ago in 1991 but didn't help but wasn't long trial) -Zoloft (1991, bad nausea so only on it for a few days) Past Head Trauma/Neuro History History of Concussion/Seizure: No Allergies Allergy/AdvReac Type Severity Reaction Status Date / Time griseofulvin Allergy Intermediate Rash Verified 05/27/24 08:39 Home Medications Medication Instructions Recorded Confirmed Type glucos sul [id number] See Rx Instructions .Route .COMPLEX 10/22/1806/25 History [Glucosamine Chondroitin] cholecalciferol (vitamin D3) 1,000 units PO DAILY 02/14/20 07/12/24 History furosemide 20 mg tablet 20 mg PO QAM 05/24/24 07/12/24 History lamotrigine 200 mg tablet 200 mg PO HS 05/24/24 07/12/24 History levothyroxine 88 mcg tablet 88 mcg PO QAM 05/24/24 07/12/24 History melatonin 1 mg tablet 1 mg PO HS PRN Sleep 05/24/24 07/12/24 History olmesartan 40 mg tablet 40 mg PO DAILY 05/24/24 07/12/24 History timolol maleate 0.5 % eye drops 2 drp ophthalmic (eye) DAILY 05/24/24 07/12/24 History Fish Oil 500 mg PO DAILY 07/12/24 07/12/24 History Lomotil 2 mg PO DAILY 07/12/24 History Norvasc 5 mg PO DAILY 07/12/24 07/12/24 History Vraylar 1.5 mg PO DAILY 07/12/24 07/12/24 History divalproex 250 mg PO DAILY 07/12/24 07/12/24 History Family History Family History of: Depression, Other Mood Disorders and Bipolar (mother, mother also had ECT and stabilized on Ozawkie) Alcohol History Hx of Alcohol Use Over the Past 12 Months: No Smoking Use Have You Smoked or Used Tobacco Products in the Last 30 Days: No Smoking Status: Never smoker Substance History Hx of Prescription Med Misuse Over the Past 12 Months: No Hx of Over the Counter Med Misuse Over the Past 12 Months: No Hx of Inhalent Misuse Over the Past 12 Months: No Hx of Organic Substance Use Over the Past 12 Months: No Hx of Illegal Substances/Street Drug Use Over Past 12 Months: No Problems as a Result of Past Substance Use: None Identified Personal History Living Arrangements: Home 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) Highest Grade Completed Comment: Employment Status: Retired Marital Status: Number Of Children: 2 Beliefs That Will Affect Care: Presybeterian Current Legal Problems: No Hx Legal Problems: No Hx Traumatic Life Events: No Patient History Medical History History of gastrointestinal procedure Moderate cervical dysplasia Surgical History H/O wrist surgery Excision of ganglion History of rectal surgery S/P LEEP (loop electrosurgical excision procedure) Family History Mother Bipolar disorder Alzheimer disease Renal failure Social History Smoking Status: Never smoker Do You Dip or Chew Tobacco: No; Hx Alcohol Use: Yes Hx Substance Use: No Preferred Language: Burkinan Communication Ability: Effective Idea Man Required: No Beliefs That Will Affect Care: Presybeterian Presybeterian Beliefs: Worship Current Living Situation: Spouse Feels Safe at Home: Yes and Hesitant to Answer Gender Identity: Female Assistive Devices: None Review of Systems Review of Systems: All systems reviewed & are unremarkable except as noted in HPI & below Physical Exam Psychiatric: Orientation: alert and oriented x 3 Apperance: appropriately dressed and appropriately groomed Eye Contact: good eye contact Motor Behavior: no abnormal motor movements Speech: normal rate/rhythm/volume of speech Affect: + depressed affect Mood: + depressed mood Thought Process: goal directed thought process Thought Content: reality based without delusions Suicidal Thoughts: denies suicidal intent; + reports suicidal thoughts and + reports suicidal plan (none for hospital, outside of hospital via CO poisoning) Homicidal Thoughts: denies homicidal thoughts Hallucinations: no auditory hallucinations and no visual hallucinations Cognition: recent memory grossly intact, remote memory grossly intact, attention grossly intact and language grossly intact Estimated Intelligence: consistent with education level Insight: + fair insight Judgment: + fair judgement Vital Signs (Past 24 Hours): Last Vital Signs Temp 36.7 C 07/13/24 06:24 Pulse 60 07/13/24 06:25 Resp 16 07/13/24 06:24 BP 155/92 H 07/13/24 06:25 Pulse Ox 99 07/12/24 16:05 O2 Del Method Room Air 07/12/24 16:05 Exam Statement: A physical exam was performed in the ED by Dr. Kellogg for the purposes of medical clearance. I accept that physical as correct and adequate for the purposes of the inpatient physical exam. Results & Data ([facility]) Laboratory Results Laboratory Results - last 24 hr 07/12/24 10:28 WBC 9.05 RBC 4.64 Hgb 13.5 Hct 41.2 MCV 88.8 MCH 29.1 MCHC 32.8 RDW Std Deviation 37.4 RDW Coeff of Mauricio 11.7 Plt Count 265 MPV 8.7 L Immature Gran % (Auto) 0.4 Neut % (Auto) 80.4 Lymph % (Auto) 13.1 [place] % (Auto) 5.5 Eos % (Auto) 0.3 Baso % (Auto) 0.3 Neut # (Auto) 7.26 H Lymph # (Auto) 1.19 L [place] # (Auto) 0.50 Eos # (Auto) 0.03 Baso # (Auto) 0.03 Immature Gran # (Auto) 0.04 Sodium 137 Potassium 4.0 Chloride 100 Carbon Dioxide 32 Anion Gap 5 BUN 16 Creatinine 1.17 Est Cr Clr Drug Dosing 34.0 eGFR 49.27 BUN/Creatinine Ratio 13.7 Glucose 85 Calcium 10.6 H Total Bilirubin 0.4 AST 23 ALT 19 Alkaline Phosphatase 99 Total Protein 7.8 Albumin 4.7 Globulin 3.1 Albumin/Globulin Ratio 1.5 TSH 1.475 Urine Color Yellow Urine Appearance Clear Urine pH 6.5 Ur Specific [place] 1.007 Urine Protein Negative Urine Glucose (UA) Negative Urine Ketones Negative Urine Blood Negative Urine Nitrite Negative Urine Bilirubin Negative Urine Urobilinogen Negative Ur Leukocyte Esterase Trace H Urine WBC (Auto) 0-5 Urine RBC (Auto) 0-2 U Hyaline Cast (Auto) 0-2 U Epithel Cells (Auto) 0-2 Urine Bacteria (Auto) None Seen Salicylates < 3.0 L Urine Opiates Screen Neg Ur Methadone, Qual Neg Urine Fentanyl Screen Neg Acetaminophen < 3 L Urine Barbiturates Neg Valproic Acid < 10 L Ur Phencyclidine (PCP) Neg U Amphetamin/Meth Scrn Neg MDMA (Ecstasy) Screen Neg U Benzodiazepines Scrn Neg Ozawkie < 0.1 L Ur Cocaine Metabolite Neg U Marijuana (THC) Screen Neg Ethyl Alcohol mg/dL < 10.0 SARS-CoV-2, RNA, NAAT NEGATIVE Current Inpatient Medications Current Inpatient Medications: Current Inpatient Medications Acetaminophen (Acetaminophen 325 Mg Tab) 650 mg PO Q4H PRN PRN Reason: Headache or Minor Fever Stop: 08/11/24 15:56 Last Admin: 07/12/24 20:58 Dose: 650 mg Al Hydrox/Mg Hydrox/Simethicone (Aluminum/Magnesium Susp 30 Ml Udc) 30 ml PO Q4H PRN PRN Reason: GI Upset Stop: 08/11/24 15:56 Amlodipine Besylate (Amlodipine Besylate 5 Mg Tab) 5 mg PO DAILY RADHIKA Stop: 08/12/24 08:59 Last Admin: 07/13/24 08:30 Dose: 5 mg Bismuth Subsalicylate (Bismuth Subsalicylate 262 Mg Chew) 2 tab PO Q30M PRN PRN Reason: Loose Stool/Diarrhea Stop: 08/11/24 15:56 Cariprazine (Cariprazine Hcl 1.5 Mg Cap) 1.5 mg PO DAILY RADHIKA Stop: 08/12/24 08:59 Last Admin: 07/13/24 08:30 Dose: 1.5 mg Fish Oil ([place]-3 (Purified Fish Oil) 1 Gm Cap) 1 cap PO DAILY RADHIKA Stop: 08/12/24 08:59 Last Admin: 07/13/24 08:30 Dose: 1 cap Furosemide (Furosemide 20 Mg Tab) 20 mg PO QAM RADHIKA Stop: 08/12/24 08:59 Last Admin: 07/13/24 08:30 Dose: 20 mg Glucosamine Sulfate (Glucosamine Sulfate 500 Mg Cap) 500 mg PO DAILY RADHIKA Stop: 08/12/24 08:59 Last Admin: 07/13/24 08:30 Dose: 500 mg Hydroxyzine HCl (Hydroxyzine Hcl 25 Mg Tab) 50 mg PO HSZ PRN PRN Reason: Insomnia Stop: 08/11/24 15:56 Hydroxyzine HCl (Hydroxyzine Hcl 25 Mg Tab) 25 mg PO Q4H PRN PRN Reason: Anxiety Stop: 08/11/24 15:56 Lamotrigine (Lamotrigine 100 Mg Tab) 200 mg PO HS RADHIKA; Protocol Stop: 08/11/24 21:59 Last Admin: 07/12/24 20:59 Dose: 200 mg Levothyroxine Sodium (Levothyroxine Sodium 88 Mcg Tablet) 88 mcg PO DAILYBB RADHIKA Stop: 08/12/24 06:29 Last Admin: 07/13/24 09:23 Dose: Not Given Loperamide HCl (Loperamide Hcl 2 Mg Cap) 2 mg PO DAILY RADHIKA Stop: 08/12/24 08:59 Last Admin: 07/13/24 08:33 Dose: 2 mg Losartan Potassium (Losartan Potassium 50 Mg Tab) 100 mg PO DAILY RADHIKA Stop: 08/12/24 08:59 Last Admin: 07/13/24 08:30 Dose: 100 mg Magnesium Hydroxide (Magnesium Hydroxide Susp 30 Ml Udc) 30 ml PO DAILY PRN PRN Reason: Constipation Stop: 08/11/24 15:56 Melatonin (Melatonin 3 Mg Tab) 3 mg PO HSZ PRN PRN Reason: Sleep Stop: 08/11/24 20:16 Sodium Chloride (Sodium Chloride 0.65% Na Soln 45 Ml ([place])) 1 - 2 sprays NA PRN PRN PRN Reason: Nasal Dryness/Congestion Stop: 08/11/24 15:56 Timolol Maleate (Timolol Maleate 0.5% Op Soln 5 Ml Btl) 1 drops OPB DAILY [facility] Stop: 08/12/24 08:59 Last Admin: 07/13/24 08:31 Dose: 1 drops Vitamin D (Cholecalciferol 25 Mcg (1000 Units) Tab) 25 mcg PO DAILY [facility] Stop: 08/12/24 08:59 Last Admin: 07/13/24 08:30 Dose: 25 mcg
[2024-07-13] MEDS: LITHIUM CARBONATE 300 MG TAB PO SCH (21:56)
[2024-07-13] MEDS: lamoTRIgine 25 MG TAB PO SCH (21:56)
[2024-07-13] MEDS: MELATONIN 3 MG TAB PO PRN (22:45)
--- NOTE | 2024-07-14 14:29 | Psychiatric Progress Note ---
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 Diagnostically consistent with bipolar disorder type II major depressive e pisode. She reports worsening depressive symptoms since January 2024, including now intensified suicidal ideation. Recent medication trials have been ineffective. A: Mood is slightly improved today, citing her hopefulness that University will be as effective for her depression as it was in the past Overall, I spent a total of 25 minutes on this case including meeting with the patient, reviewing the chart, nursing report, orders, and documentation. (1) Bipolar disorder with severe depression: (2) Bipolar II disorder with seasonal pattern: (3) Depression with suicidal ideation: (4) S/P cardiac pacemaker procedure: (5) Coronary atherosclerosis of [place] coronary artery: (6) HTN, goal below 130/80: Plan 07/14/2024: -Continue current medications and tx plan 07/13/2024: The patient was admitted to the [facility] ([facility] mental health unit) on q15 min checks (behavioral with suicide precautions) for safety. The patient will participate in group, recreational, and milieu therapies and will be offered additional individual and family sessions as clinically appropriate. -Start University 300mg HS (goal of keeping at very low dose to minimize risks) -Discontinue Vraylar -Discontinue Lasix, Cozaar -Decrease Lamictal from 200mg HS to 150mg HS -Continue amlodipine (monitor closely as can increase risk for lithium toxicity) -Continue to monitor BP closely especially with discontinuation of two anti- hypertensives for initiation of University -University level in 2-3 days (sooner than normal due to amlodipine use and her age) -Plan for EKG in 2-3 days to ensure no significant changes with University initiation -Continue to discuss options for increased outpatient support including therapy referrals, potentially may benefit from psychiatry within [facility] for easier care coordination among 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 Strengths: supportive relationships, willing to get treatment Needs: safety and stabilization, medication adjustment, additional coping skills, increased outpatient services Suicide Risk Level Suicide Risk Level: Moderate (q15 min suicide checks) (severe depression with SI with plan prior to admission but mood improving, feels safe in the hospital and feels able to ask for support if needed) Suicide Risk Level Comments: Risk Factors Assessment Male: No : Yes Do You Have Access To A Gun?: No ( has handgun, but only he is able to access safe that where located) Health Problems: Yes Mental Health Diagnoses: Yes Substance Use Disorders: No Previous Attempt: Yes Family History of Suicide: No Previous Psychiatric Hospitalization: No Hopelessness: Yes Protective Factors Assessment Advent Beliefs: Yes : Yes 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 Chief Complaint "Hopeful". Review of Systems Sleep Information Total Hours of Sleep: 6 Meal Information Percent Meal Consumed - Breakfast: 100 Percent Meal Consumed - Lunch: 100 Percent Meal Consumed - Dinner: 90 Subjective Subjective Patient was seen & assessed and interval progress reviewed with nursing. Slept better last night. Attending groups and interactive with peers. Reports feeling "hopeful" and "optimistic" after being able to start University. No mood differences yet but she knows she won't see a difference for at least a few more days. No side effects so far. Physical Exam Psychiatric Orientation: alert and oriented x 3 Apperance: appropriately dressed and appropriately groomed Eye Contact: good eye contact Motor Behavior: no abnormal motor movements Speech: normal rate/rhythm/volume of speech Affect: + depressed affect Mood: + depressed mood Thought Process: goal directed thought process Thought Content: reality based without delusions Suicidal Thoughts: denies suicidal thoughts, denies suicidal plan and denies suicidal intent Homicidal Thoughts: denies homicidal thoughts Hallucinations: no auditory hallucinations and no visual hallucinations Cognition: recent memory grossly intact, remote memory grossly intact, attention grossly intact and language grossly intact Estimated Intelligence: consistent with education level Insight: + fair insight Judgment: + fair judgement Vital Signs (Past 24 Hours) Last Vital Signs Temp 36.6 C 07/14/24 06:27 Pulse 60 07/14/24 06:27 Resp 16 07/14/24 06:27 BP 148/88 H 07/14/24 06:27 Pulse Ox 99 07/12/24 16:05 O2 Del Method Room Air 07/12/24 16:05 Results & [facility] Current Inpatient Medications Current Inpatient Medications: Current Inpatient Medications Acetaminophen (Acetaminophen 325 Mg Tab) 650 mg PO Q4H PRN PRN Reason: Headache or Minor Fever Stop: 08/11/24 15:56 Last Admin: 07/13/24 22:45 Dose: 650 mg Al Hydrox/Mg Hydrox/Simethicone (Aluminum/Magnesium Susp 30 Ml Udc) 30 ml PO Q4H PRN PRN Reason: GI Upset Stop: 08/11/24 15:56 Amlodipine Besylate (Amlodipine Besylate 5 Mg Tab) 5 mg PO DAILY RADHIKA Stop: 08/12/24 08:59 Last Admin: 07/14/24 09:23 Dose: 5 mg Bismuth Subsalicylate (Bismuth Subsalicylate 262 Mg Chew) 2 tab PO Q30M PRN PRN Reason: Loose Stool/Diarrhea Stop: 08/11/24 15:56 Fish Oil ([place]-3 (Purified Fish Oil) 1 Gm Cap) 1 cap PO DAILY RADHIKA Stop: 08/12/24 08:59 Last Admin: 07/14/24 09:23 Dose: 1 cap Glucosamine Sulfate (Glucosamine Sulfate 500 Mg Cap) 500 mg PO DAILY RADHIKA Stop: 08/12/24 08:59 Last Admin: 07/14/24 09:23 Dose: 500 mg Hydroxyzine HCl (Hydroxyzine Hcl 25 Mg Tab) 50 mg PO HSZ PRN PRN Reason: Insomnia Stop: 08/11/24 15:56 Hydroxyzine HCl (Hydroxyzine Hcl 25 Mg Tab) 25 mg PO Q4H PRN PRN Reason: Anxiety Stop: 08/11/24 15:56 Lamotrigine (Lamotrigine 25 Mg Tab) 150 mg PO HS RADHIKA; Protocol Stop: 08/12/24 21:59 Last Admin: 07/13/24 21:56 Dose: 150 mg Levothyroxine Sodium (Levothyroxine Sodium 88 Mcg Tablet) 88 mcg PO DAILYBB RADHIKA Stop: 08/12/24 06:29 Last Admin: 07/14/24 08:07 Dose: 88 mcg University Carbonate (University Carbonate 300 Mg Tab) 300 mg PO HS RADHIKA Stop: 08/12/24 21:59 Last Admin: 07/13/24 21:56 Dose: 300 mg Loperamide HCl (Loperamide Hcl 2 Mg Cap) 2 mg PO DAILY RADHIKA Stop: 08/12/24 08:59 Last Admin: 07/14/24 09:24 Dose: 2 mg Magnesium Hydroxide (Magnesium Hydroxide Susp 30 Ml Udc) 30 ml PO DAILY PRN PRN Reason: Constipation Stop: 08/11/24 15:56 Melatonin (Melatonin 3 Mg Tab) 3 mg PO HSZ PRN PRN Reason: Sleep Stop: 08/11/24 20:16 Last Admin: 07/13/24 22:45 Dose: 3 mg Sodium Chloride (Sodium Chloride 0.65% Na Soln 45 Ml ([place])) 1 - 2 sprays NA PRN PRN PRN Reason: Nasal Dryness/Congestion Stop: 08/11/24 15:56 Timolol Maleate (Timolol Maleate 0.5% Op Soln 5 Ml Btl) 1 drops OPB DAILY RADHIKA Stop: 08/12/24 08:59 Last Admin: 07/14/24 08:09 Dose: 1 drops Vitamin D (Cholecalciferol 25 Mcg (1000 Units) Tab) 25 mcg PO DAILY RADHIKA Stop: 08/12/24 08:59 Last Admin: 07/14/24 09:23 Dose: 25 mcg Mental Health & Subst Abuse Tx Psychiatrist Date Of Appointment With Psychiatric Provider: 07/15/24 @1100 with new provider at [facility] Time of Appointment with Psychiatrist: [id number] Medical Records Auditor Name of Medical Records Auditor: Behavioral Medical Records Auditor @[facility] Post Discharge Appointments Primary Care Physician Name Of Family Doctor/PCP: Dr. Meza @[facility]
[2024-07-14] MEDS: LITHIUM CARBONATE 300 MG TAB PO SCH (21:12)
--- NOTE | 2024-07-15 09:03 | Psychiatric Progress Note ---
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 Diagnostically consistent with bipolar disorder type II major depressive e pisode. She reports worsening depressive symptoms since January 2024, including now intensified suicidal ideation. Recent medication trials have been ineffective. A: More depressed and hopeless today. No side effects from [place] so far. Will get early level tomorrow and if very low consider slight dose increase of [place] tomorrow. No worsening of HTN with recent medication discontinuation of hypertensives to allow initiation of [place]. Overall, I spent a total of 30 minutes on this case including meeting with the patient, reviewing the chart, nursing report, orders, and documentation. (1) Bipolar disorder with severe depression: (2) Bipolar II disorder with seasonal pattern: (3) Depression with suicidal ideation: (4) S/P cardiac pacemaker procedure: (5) Coronary atherosclerosis of [place] coronary artery: (6) HTN, goal below 130/80: Plan 07/15/2024: -[place] level tomorrow AM, consider dose adjustment based on that 07/14/2024: -Continue current medications and tx plan 07/13/2024: The patient was admitted to the [facility] ([facility] mental health unit) on q15 min checks (behavioral with suicide precautions) for safety. The patient will participate in group, recreational, and milieu therapies and will be offered additional individual and family sessions as clinically appropriate. -Start [place] 300mg HS (goal of keeping at very low dose to minimize risks) -Discontinue Vraylar -Discontinue Lasix, Cozaar -Decrease Lamictal from 200mg HS to 150mg HS -Continue amlodipine (monitor closely as can increase risk for lithium toxicity) -Continue to monitor BP closely especially with discontinuation of two anti- hypertensives for initiation of [place] -[place] level in 2-3 days (sooner than normal due to amlodipine use and her age) -Plan for EKG in 2-3 days to ensure no significant changes with [place] initiation -Continue to discuss options for increased outpatient support including therapy referrals, potentially may benefit from psychiatry within [facility] for easier care coordination 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 Strengths: supportive relationships, willing to get treatment Needs: safety and stabilization, medication adjustment, additional coping skills, increased outpatient services Suicide Risk Level Suicide Risk Level: Moderate (q15 min suicide checks) (severe depression with SI with plan prior to admission but mood improving, feels safe in the hospital and feels able to ask for support if needed) Suicide Risk Level Comments: Risk Factors Assessment Male: No : Yes Do You Have Access To A Gun?: No ( has handgun, but only he is able to access safe that where located) Health Problems: Yes Mental Health Diagnoses: Yes Substance Use Disorders: No Previous Attempt: Yes Family History of Suicide: No Previous Psychiatric Hospitalization: No Hopelessness: Yes Protective Factors Assessment Voodoo Beliefs: Yes : Yes 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 Chief Complaint "Today is not good". Review of Systems Sleep Information Total Hours of Sleep: 6 Meal Information Percent Meal Consumed - Breakfast: 100 Percent Meal Consumed - Lunch: 100 Percent Meal Consumed - Dinner: 100 Subjective Subjective Patient was seen & assessed and interval progress reviewed with treatment team. Attending groups, visited twice yesterday. Today she woke up "feeling like I did on Monday" with a lot of hopelessness, low energy, low motivation and physical symptoms of depression. Has also felt more anxious and ruminating on thoughts. Wonders "why has my body failed me". Physical Exam Psychiatric Orientation: alert and oriented x 3 Apperance: appropriately dressed and appropriately groomed Eye Contact: good eye contact Motor Behavior: no abnormal motor movements Speech: normal rate/rhythm/volume of speech Affect: + depressed affect Mood: + depressed mood Thought Process: goal directed thought process Thought Content: reality based without delusions, + hopelessness and + worthlessness Suicidal Thoughts: denies suicidal thoughts, denies suicidal plan and denies suicidal intent Homicidal Thoughts: denies homicidal thoughts Hallucinations: no auditory hallucinations and no visual hallucinations Cognition: recent memory grossly intact, remote memory grossly intact, attention grossly intact and language grossly intact Estimated Intelligence: consistent with education level Insight: + fair insight Judgment: + fair judgement Vital Signs (Past 24 Hours) Last Vital Signs Temp 36.8 C 07/15/24 06:23 Pulse 60 07/15/24 06:23 Resp 16 07/15/24 06:23 BP 154/87 H 07/15/24 06:23 Pulse Ox 99 07/12/24 16:05 O2 Del Method Room Air 07/12/24 16:05 Results & Data ([facility]) Current Inpatient Medications Current Inpatient Medications: Current Inpatient Medications Acetaminophen (Acetaminophen 325 Mg Tab) 650 mg PO Q4H PRN PRN Reason: Headache or Minor Fever Stop: 08/11/24 15:56 Last Admin: 07/14/24 21:11 Dose: 650 mg Al Hydrox/Mg Hydrox/Simethicone (Aluminum/Magnesium Susp 30 Ml Udc) 30 ml PO Q4H PRN PRN Reason: GI Upset Stop: 08/11/24 15:56 Amlodipine Besylate (Amlodipine Besylate 5 Mg Tab) 5 mg PO DAILY RADHIKA Stop: 08/12/24 08:59 Last Admin: 07/14/24 09:23 Dose: 5 mg Bismuth Subsalicylate (Bismuth Subsalicylate 262 Mg Chew) 2 tab PO Q30M PRN PRN Reason: Loose Stool/Diarrhea Stop: 08/11/24 15:56 Fish Oil ([place]-3 (Purified Fish Oil) 1 Gm Cap) 1 cap PO DAILY RADHIKA Stop: 08/12/24 08:59 Last Admin: 07/14/24 09:23 Dose: 1 cap Glucosamine Sulfate (Glucosamine Sulfate 500 Mg Cap) 500 mg PO DAILY RADHIKA Stop: 08/12/24 08:59 Last Admin: 07/14/24 09:23 Dose: 500 mg Hydroxyzine HCl (Hydroxyzine Hcl 25 Mg Tab) 50 mg PO HSZ PRN PRN Reason: Insomnia Stop: 08/11/24 15:56 Hydroxyzine HCl (Hydroxyzine Hcl 25 Mg Tab) 25 mg PO Q4H PRN PRN Reason: Anxiety Stop: 08/11/24 15:56 Lamotrigine (Lamotrigine 25 Mg Tab) 150 mg PO HS RADHIKA; Protocol Stop: 08/12/24 21:59 Last Admin: 07/14/24 21:12 Dose: 150 mg Levothyroxine Sodium (Levothyroxine Sodium 88 Mcg Tablet) 88 mcg PO DAILYBB [facility] Stop: 08/12/24 06:29 Last Admin: 07/15/24 08:12 Dose: 88 mcg [place] Carbonate ([place] Carbonate 300 Mg Tab) 300 mg PO PM RADHIKA Stop: 08/13/24 20:59 Last Admin: 07/14/24 21:12 Dose: 300 mg Loperamide HCl (Loperamide Hcl 2 Mg Cap) 2 mg PO DAILY RADHIKA Stop: 08/12/24 08:59 Last Admin: 07/14/24 09:24 Dose: 2 mg Magnesium Hydroxide (Magnesium Hydroxide Susp 30 Ml Udc) 30 ml PO DAILY PRN PRN Reason: Constipation Stop: 08/11/24 15:56 Melatonin (Melatonin 3 Mg Tab) 3 mg PO HSZ PRN PRN Reason: Sleep Stop: 08/11/24 20:16 Last Admin: 07/14/24 21:12 Dose: 3 mg Sodium Chloride (Sodium Chloride 0.65% Na Soln 45 Ml ([place])) 1 - 2 sprays NA PRN PRN PRN Reason: Nasal Dryness/Congestion Stop: 08/11/24 15:56 Timolol Maleate (Timolol Maleate 0.5% Op Soln 5 Ml Btl) 1 drops OPB DAILY RADHIKA Stop: 08/12/24 08:59 Last Admin: 07/14/24 08:09 Dose: 1 drops Vitamin D (Cholecalciferol 25 Mcg (1000 Units) Tab) 25 mcg PO DAILY [facility] Stop: 08/12/24 08:59 Last Admin: 07/14/24 09:23 Dose: 25 mcg Mental Health & Subst Abuse Tx Psychiatrist Name of Psychiatrist: [facility] Psychiatry Psychiatrist's Date Of Appointment With Psychiatric Provider: 07/15/24 @1100 with new provider at [facility] Time of Appointment with Psychiatrist: [id number] Psychiatric Appointment Comment: appt on 07/15 rescheduled Printing Press Machine Operator Name of Printing Press Machine Operator: Behavioral Printing Press Machine Operator @[facility] Post Discharge Appointments Primary Care Physician Name Of Family Doctor/PCP: Tracie Meza
--- NOTE | 2024-07-16 09:03 | Psychiatric Progress Note ---
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 Diagnostically consistent with bipolar disorder type II major depressive e pisode. She reports worsening depressive symptoms since January 2024, including now intensified suicidal ideation. Recent medication trials have been ineffective. A: Ongoing depression, early [place] level notable for 0.3. Given her medical co-morbidities and amlodipine use, I recommended we keep the dose at 300mg HS for now until we can get true trough level in another 2-3 days. Reviewed option to start SSRI like escitalopram, she prefers to hold off on this for now. Overall, I spent a total of 25 minutes on this case including meeting with the patient, reviewing the chart, nursing report, orders, and documentation. (1) Bipolar disorder with severe depression: (2) Bipolar II disorder with seasonal pattern: (3) Depression with suicidal ideation: (4) S/P cardiac pacemaker procedure: (5) Coronary atherosclerosis of [place] coronary artery: (6) HTN, goal below 130/80: Plan 07/16/2024: -Continue current medications and tx plan 07/15/2024: -[place] level tomorrow AM, consider dose adjustment based on that 07/14/2024: -Continue current medications and tx plan 07/13/2024: The patient was admitted to the [facility] ([facility] mental [facility] unit) on q15 min checks (behavioral with suicide precautions) for safety. The patient will participate in group, recreational, and milieu therapies and will be offered additional individual and family sessions as clinically appropriate. -Start [place] 300mg HS (goal of keeping at very low dose to minimize risks) -Discontinue Vraylar -Discontinue Lasix, Cozaar -Decrease Lamictal from 200mg HS to 150mg HS -Continue amlodipine (monitor closely as can increase risk for lithium toxicity) -Continue to monitor BP closely especially with discontinuation of two anti-hypertensives for initiation of [place] -[place] level in 2-3 days (sooner than normal due to amlodipine use and her age) -Plan for EKG in 2-3 days to ensure no significant changes with [place] initiation -Continue to discuss options for increased outpatient support including therapy referrals, potentially may benefit from psychiatry within [facility] for easier care coordination among 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 Assets Strengths: supportive relationships, willing to get treatment Needs: safety and stabilization, medication adjustment, additional coping skills, increased outpatient services Suicide Risk Level Suicide Risk Level: Moderate (q15 min suicide checks) (severe depression with SI with plan prior to admission but mood improving, feels safe in the hospital and feels able to ask for support if needed) Suicide Risk Level Comments: Risk Factors Assessment Male: No : Yes Do You Have Access To A Gun?: No ( has handgun, but only he is able to access safe that where located) Health Problems: Yes Mental Health Diagnoses: Yes Substance Use Disorders: No Previous Attempt: Yes Family History of Suicide: No Previous Psychiatric Hospitalization: No Hopelessness: Yes Protective Factors Assessment Caodaism Beliefs: Yes : Yes 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 Chief Complaint "Better than yesterday but still down". Review of Systems Sleep Information Total Hours of Sleep: 6.5 Meal Information Percent Meal Consumed - Breakfast: 100 Percent Meal Consumed - Lunch: 75 Percent Meal Consumed - Dinner: 100 Subjective Subjective Patient was seen & assessed and interval progress reviewed with nursing and social work. Attending groups, lower mood yesterday, walking laps and watched movie with peers. Today reports less ruminative thoughts today but still depressed and feels she is needing to remind herself to be patient as she wishes the lithium was working already. However, she denies any negative side effects so far. Reviewed elevated BP. Reviewed [place] level and option to consider augmentation with SSRI. She prefers to give the [place] so more time to work for now. Physical Exam Psychiatric Orientation: alert and oriented x 3 Apperance: appropriately dressed and appropriately groomed Eye Contact: good eye contact Motor Behavior: no abnormal motor movements Speech: normal rate/rhythm/volume of speech Affect: + depressed affect Mood: + depressed mood and + anxious mood Thought Process: goal directed thought process Thought Content: reality based without delusions, + hopelessness and + worthlessness Suicidal Thoughts: denies suicidal thoughts, denies suicidal plan and denies suicidal intent Homicidal Thoughts: denies homicidal thoughts Hallucinations: no auditory hallucinations and no visual hallucinations Cognition: recent memory grossly intact, remote memory grossly intact, attention grossly intact and language grossly intact Estimated Intelligence: consistent with education level Insight: + fair insight Judgment: + fair judgement Vital Signs (Past 24 Hours) Last Vital Signs Temp 36.9 C 07/16/24 06:21 Pulse 60 07/16/24 06:22 Resp 16 07/16/24 06:21 BP 152/83 H 07/16/24 06:22 Pulse Ox 99 07/12/24 16:05 O2 Del Method Room Air 07/12/24 16:05 Results & Data ([facility]) Laboratory Results Laboratory Results - last 24 hr 07/16/24 08:05 [place] Pending Current Inpatient Medications Current Inpatient Medications: Current Inpatient Medications Acetaminophen (Acetaminophen 325 Mg Tab) 650 mg PO Q4H PRN PRN Reason: Headache or Minor Fever Stop: 08/11/24 15:56 Last Admin: 07/14/24 21:11 Dose: 650 mg Al Hydrox/Mg Hydrox/Simethicone (Aluminum/Magnesium Susp 30 Ml Udc) 30 ml PO Q4H PRN PRN Reason: GI Upset Stop: 08/11/24 15:56 Amlodipine Besylate (Amlodipine Besylate 5 Mg Tab) 5 mg PO DAILY [facility] Stop: 08/12/24 08:59 Last Admin: 07/15/24 09:05 Dose: 5 mg Bismuth Subsalicylate (Bismuth Subsalicylate 262 Mg Chew) 2 tab PO Q30M PRN PRN Reason: Loose Stool/Diarrhea Stop: 08/11/24 15:56 Fish Oil ([place]-3 (Purified Fish Oil) 1 Gm Cap) 1 cap PO DAILY [facility] Stop: 08/12/24 08:59 Last Admin: 07/15/24 09:06 Dose: 1 cap Glucosamine Sulfate (Glucosamine Sulfate 500 Mg Cap) 500 mg PO DAILY [facility] Stop: 08/12/24 08:59 Last Admin: 07/15/24 09:06 Dose: 500 mg Hydroxyzine HCl (Hydroxyzine Hcl 25 Mg Tab) 50 mg PO HSZ PRN PRN Reason: Insomnia Stop: 08/11/24 15:56 Hydroxyzine HCl (Hydroxyzine Hcl 25 Mg Tab) 25 mg PO Q4H PRN PRN Reason: Anxiety Stop: 08/11/24 15:56 Lamotrigine (Lamotrigine 25 Mg Tab) 150 mg PO HS [facility]; Protocol Stop: 08/12/24 21:59 Last Admin: 07/15/24 21:09 Dose: 150 mg Levothyroxine Sodium (Levothyroxine Sodium 88 Mcg Tablet) 88 mcg PO DAILYBB [facility] Stop: 08/12/24 06:29 Last Admin: 07/16/24 08:14 Dose: 88 mcg [place] Carbonate ([place] Carbonate 300 Mg Tab) 300 mg PO PM [facility] Stop: 08/13/24 20:59 Last Admin: 07/15/24 21:09 Dose: 300 mg Loperamide HCl (Loperamide Hcl 2 Mg Cap) 2 mg PO DAILY [facility] Stop: 08/12/24 08:59 Last Admin: 07/15/24 09:06 Dose: 2 mg Magnesium Hydroxide (Magnesium Hydroxide Susp 30 Ml Udc) 30 ml PO DAILY PRN PRN Reason: Constipation Stop: 08/11/24 15:56 Melatonin (Melatonin 3 Mg Tab) 3 mg PO HSZ PRN PRN Reason: Sleep Stop: 08/11/24 20:16 Last Admin: 07/15/24 22:51 Dose: 3 mg Sodium Chloride (Sodium Chloride 0.65% Na Soln 45 Ml ([facility])) 1 - 2 sprays NA PRN PRN PRN Reason: Nasal Dryness/Congestion Stop: 08/11/24 15:56 Timolol Maleate (Timolol Maleate 0.5% Op Soln 5 Ml Btl) 1 drops OPB DAILY [facility] Stop: 08/12/24 08:59 Last Admin: 07/15/24 09:07 Dose: 1 drops Vitamin D (Cholecalciferol 25 Mcg (1000 Units) Tab) 25 mcg PO DAILY [facility] Stop: 08/12/24 08:59 Last Admin: 07/15/24 09:06 Dose: 25 mcg Mental Health & Subst Abuse Tx Psychiatrist Name of Psychiatrist: [facility] Psychiatry Psychiatrist's Date Of Appointment With Psychiatric Provider: 07/15/24 @1100 with new provider at [facility] Time of Appointment with Psychiatrist: [id number] Psychiatric Appointment Comment: appt on 07/15 rescheduled Er Nurse Name of Er Nurse: Behavioral Er Nurse @[facility] Post Discharge Appointments Primary Care Physician Name Of Family Doctor/PCP: Trey-Dr. Meza
--- NOTE | 2024-07-17 16:28 | Psychiatric Progress Note ---
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 Diagnostically consistent with bipolar disorder major depressive episode. She reports worsening depressive symptoms since January 2024, including now intensified suicidal ideation. Recent medication trials have been ineffective. A: Patient present history of bipolar condition with past stability on lithium. She reports a history of junctional rhythm secondary to lithium use however past lithium levels have been within therapeutic range with no other signs of toxicit y. Plan to redraw lithium level tomorrow morning for more accurate trough level and get a repeat EKG. She presents stable creatinine and admission EKG. Overall, I spent a total of 45 minutes on this case including meeting with the patient, reviewing the chart, nursing report, orders, and documentation. (1) Bipolar disorder with severe depression: (2) Bipolar II disorder with seasonal pattern: (3) Depression with suicidal ideation: (4) S/P cardiac pacemaker procedure: (5) Coronary atherosclerosis of [place] coronary artery: (6) HTN, goal below 130/80: Plan 07/17/2024: -Repeat EKG and trough lithium level 07/16/2024: -Continue current medications and tx plan 07/15/2024: -[place] level tomorrow AM, consider dose adjustment based on that 07/14/2024: -Continue current medications and tx plan 07/13/2024: The patient was admitted to the [facility] ([facility] unit) on q15 min checks (behavioral with suicide precautions) for safety. The patient will participate in group, recreational, and milieu therapies and will be offered additional individual and family sessions as clinically appropriate. -Start [place] 300mg HS (goal of keeping at very low dose to minimize risks) -Discontinue Vraylar -Discontinue Lasix, Cozaar -Decrease Lamictal from 200mg HS to 150mg HS -Continue amlodipine (monitor closely as can increase risk for lithium toxicity) -Continue to monitor BP closely especially with discontinuation of two anti- hypertensives for initiation of [place] -[place] level in 2-3 days (sooner than normal due to amlodipine use and her age) -Plan for EKG in 2-3 days to ensure no significant changes with [place] initiation -Continue to discuss options for increased outpatient support including therapy referrals, potentially may benefit from psychiatry within [facility] for easier care coordination among 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 Assets Strengths: supportive relationships, willing to get treatment Needs: safety and stabilization, medication adjustment, additional coping skills, increased outpatient services Suicide Risk Level Suicide Risk Level: Moderate (q15 min suicide checks) (severe depression with SI with plan prior to admission but mood improving, feels safe in the hospital and feels able to ask for support if needed) Suicide Risk Level Comments: Risk Factors Assessment Male: No : Yes Do You Have Access To A Gun?: No ( has handgun, but only he is able to access safe that where located) Health Problems: Yes Mental Health Diagnoses: Yes Substance Use Disorders: No Previous Attempt: Yes Family History of Suicide: No Previous Psychiatric Hospitalization: No Hopelessness: Yes Protective Factors Assessment Holiness Beliefs: Yes : Yes 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 Chief Complaint Depression Review of Systems Sleep Information Total Hours of Sleep: 6.5 Meal Information Percent Meal Consumed - Breakfast: 50 Percent Meal Consumed - Lunch: 90 Percent Meal Consumed - Dinner: 100 Subjective Subjective Patient was seen & assessed and interval progress reviewed with treatment team nursing and social work Reports last being on lithium in 2019 and was discontinued on a trial basis due to motor vehicle salesperson concern that her "P wave disappeared and was in junctional rhythm". Psychiatrist never resumed the medication afterwards. Has had a pacemaker placed since. Reports having good mood control on lithium and has multiple family members with bipolar disorder on lithium. Notes having an episode in January to December for 2 months where she was spending excessively on item she did not need with decreased sleep and higher energy. She reports since then having "profound" depression. Outpatient psychiatrist had trialed her on lamotrigine which was ineffective and Depakote which she did not try. Reports being on Prozac for many months however when it was increased from 20 to 30 mg and worsened her suicidal ideation. Currently she complains of passive SI and reports a recent plan and action towards it. Complains of hopelessness due to her situation. Denies having racing thoughts and reports sleeping well. Physical Exam Mental Examination Appearance: Well Groomed Eye Contact: Maintains Eye Contact Motor Behavior: Unremarkable Speech: Normal Mood: Anxious and Sad Affect: Constricted, Nervous and Sad Thought Process: Intact Hallucinations: None Insight: Fair Judgement: Good Vital Signs (Past 24 Hours) Last Vital Signs Temp 36.9 C 07/17/24 06:26 Pulse 60 07/17/24 06:27 Resp 16 07/17/24 06:26 BP 149/80 H 07/17/24 06:27 Pulse Ox 99 07/12/24 16:05 O2 Del Method Room Air 07/12/24 16:05 Results & Data ([facility]) Current Inpatient Medications Current Inpatient Medications: Current Inpatient Medications Acetaminophen (Acetaminophen 325 Mg Tab) 650 mg PO Q4H PRN PRN Reason: Headache or Minor Fever Stop: 08/11/24 15:56 Last Admin: 07/14/24 21:11 Dose: 650 mg Al Hydrox/Mg Hydrox/Simethicone (Aluminum/Magnesium Susp 30 Ml Udc) 30 ml PO Q4H PRN PRN Reason: GI Upset Stop: 08/11/24 15:56 Amlodipine Besylate (Amlodipine Besylate 5 Mg Tab) 5 mg PO DAILY [facility] Stop: 08/12/24 08:59 Last Admin: 07/17/24 08:55 Dose: 5 mg Bismuth Subsalicylate (Bismuth Subsalicylate 262 Mg Chew) 2 tab PO Q30M PRN PRN Reason: Loose Stool/Diarrhea Stop: 08/11/24 15:56 Fish Oil ([place]-3 (Purified Fish Oil) 1 Gm Cap) 1 cap PO DAILY [facility] Stop: 08/12/24 08:59 Last Admin: 07/17/24 08:56 Dose: 1 cap Glucosamine Sulfate (Glucosamine Sulfate 500 Mg Cap) 500 mg PO DAILY [facility] Stop: 08/12/24 08:59 Last Admin: 07/17/24 08:56 Dose: 500 mg Hydroxyzine HCl (Hydroxyzine Hcl 25 Mg Tab) 50 mg PO HSZ PRN PRN Reason: Insomnia Stop: 08/11/24 15:56 Hydroxyzine HCl (Hydroxyzine Hcl 25 Mg Tab) 25 mg PO Q4H PRN PRN Reason: Anxiety Stop: 08/11/24 15:56 Lamotrigine (Lamotrigine 25 Mg Tab) 150 mg PO HS [facility]; Protocol Stop: 08/12/24 21:59 Last Admin: 07/16/24 21:37 Dose: 150 mg Levothyroxine Sodium (Levothyroxine Sodium 88 Mcg Tablet) 88 mcg PO DAILYBB [facility] Stop: 08/12/24 06:29 Last Admin: 07/17/24 08:08 Dose: 88 mcg [place] Carbonate ([place] Carbonate 300 Mg Tab) 300 mg PO PM [facility] Stop: 08/13/24 20:59 Last Admin: 07/16/24 21:37 Dose: 300 mg Loperamide HCl (Loperamide Hcl 2 Mg Cap) 2 mg PO DAILY [facility] Stop: 08/12/24 08:59 Last Admin: 07/17/24 08:56 Dose: 2 mg Magnesium Hydroxide (Magnesium Hydroxide Susp 30 Ml Udc) 30 ml PO DAILY PRN PRN Reason: Constipation Stop: 08/11/24 15:56 Melatonin (Melatonin 3 Mg Tab) 3 mg PO HSZ PRN PRN Reason: Sleep Stop: 08/11/24 20:16 Last Admin: 07/16/24 21:37 Dose: 3 mg Sodium Chloride (Sodium Chloride 0.65% Na Soln 45 Ml ([place])) 1 - 2 sprays NA PRN PRN PRN Reason: Nasal Dryness/Congestion Stop: 08/11/24 15:56 Timolol Maleate (Timolol Maleate 0.5% Op Soln 5 Ml Btl) 1 drops OPB DAILY [facility] Stop: 08/12/24 08:59 Last Admin: 07/17/24 08:56 Dose: 1 drops Vitamin D (Cholecalciferol 25 Mcg (1000 Units) Tab) 25 mcg PO DAILY [facility] Stop: 08/12/24 08:59 Last Admin: 07/17/24 08:56 Dose: 25 mcg Mental Health & Subst Abuse Tx Psychiatrist Name of Psychiatrist: [facility] Psychiatry Psychiatrist's Date Of Appointment With Psychiatric Provider: 07/15/24 @1100 with new provider at [facility] Time of Appointment with Psychiatrist: [id number] Psychiatric Appointment Comment: appt on 07/15 rescheduled Traffic Reporter Name of Traffic Reporter: Behavioral Traffic Reporter @[facility] Post Discharge Appointments Primary Care Physician Name Of Family Doctor/PCP: Trey-Dr. Meza
--- NOTE | 2024-07-18 12:54 | Psychiatric Progress Note ---
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 Diagnostically consistent with bipolar disorder major depressive episode. She reports worsening depressive symptoms since January 2024, including now intensified suicidal ideation. Recent medication trials have been ineffective. A: Patient present history of bipolar condition with past stability on lithium. She reports a history of junctional rhythm and bradyarrhythmia secondary to lithium use and was why it was d/c in the past. Reports worsening depression in recent years and other medication trials (Lamotrigine) were ineffective. Today's lithium level was 0.4 and EKG from today appears to be within expected limits. Patient now has a pacemaker. Will consult cardiology for risk assessment and HTN medication recommendations. Overall, I spent a total of 35 minutes on this case including meeting with the patient, reviewing the chart, nursing report, orders, and documentation. (1) Bipolar disorder with severe depression: (2) Bipolar II disorder with seasonal pattern: (3) S/P cardiac pacemaker procedure: (4) Coronary atherosclerosis of ewiiaapaayp coronary artery: (5) HTN, goal below 130/80: Plan 07/18/24: Consult cardiology 07/17/2024: -Repeat EKG and trough lithium level 07/16/2024: -Continue current medications and tx plan 07/15/2024: -Central [place] level tomorrow AM, consider dose adjustment based on that 07/14/2024: -Continue current medications and tx plan 07/13/2024: The patient was admitted to the [facility] ([facility]) on q15 min checks (behavioral with suicide precautions) for safety. The patient will participate in group, recreational, and milieu therapies and will be offered additional individual and family sessions as clinically appropriate. -Start [place] 300mg HS (goal of keeping at very low dose to minimize risks) -Discontinue Vraylar -Discontinue Lasix, Cozaar -Decrease Lamictal from 200mg HS to 150mg HS -Continue amlodipine (monitor closely as can increase risk for lithium toxicity) -Continue to monitor BP closely especially with discontinuation of two anti- hypertensives for initiation of [place]re -Central [place] level in 2-3 days (sooner than normal due to amlodipine use and her age) -Plan for EKG in 2-3 days to ensure no significant changes with Central [place] initiation -Continue to discuss options for increased outpatient support including therapy referrals, potentially may benefit from psychiatry within [facility] for easier care coordination among specialties especially with her conference interpreter Inventory Assets Strengths: supportive relationships, willing to get treatment Needs: safety and stabilization, medication adjustment, additional coping skills, increased outpatient services Suicide Risk Level Suicide Risk Level: Moderate (q15 min suicide checks) (severe depression with SI with plan prior to admission but mood improving, feels safe in the hospital and feels able to ask for support if needed) Suicide Risk Level Comments: Risk Factors Assessment Male: No : Yes Do You Have Access To A Gun?: No ( has handgun, but only he is able to access safe that where located) Health Problems: Yes Mental Health Diagnoses: Yes Substance Use Disorders: No Previous Attempt: Yes Family History of Suicide: No Previous Psychiatric Hospitalization: No Hopelessness: Yes Protective Factors Assessment Caodaism Beliefs: Yes : Yes 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 Chief Complaint Depression Review of Systems Sleep Information Total Hours of Sleep: 7 Meal Information Percent Meal Consumed - Breakfast: 100 Percent Meal Consumed - Lunch: 90 Percent Meal Consumed - Dinner: 100 Subjective Subjective Patient was seen & assessed and interval progress reviewed with treatment team nursing and social work Overnight pt slept 7 hours. Family meeting scheduled for tomorrow. Pt reports sleeping well and denies feeling anxious. Says since being on lithium has been able to express more affect, feels more energetic, and endorses more stable and improved mood. Reports self esteem has improved and describes herself as "hopeful." Feels she has done the best on lithium and interested in increasing it to a therapeutic dose. Physical Exam Mental Examination Appearance: Well Groomed Eye Contact: Maintains Eye Contact Motor Behavior: Unremarkable Speech: Normal Mood: Euthymic and Calm Affect: Constricted Thought Process: Intact Hallucinations: None Insight: Fair Judgement: Good Vital Signs (Past 24 Hours) Last Vital Signs Temp 36.8 C 07/18/24 06:24 Pulse 61 07/18/24 06:24 Resp 16 07/18/24 06:24 BP 152/85 H 07/18/24 06:24 Pulse Ox 99 07/12/24 16:05 O2 Del Method Room Air 07/12/24 16:05 Results & Data ([facility]) Laboratory Results Laboratory Results - last 24 hr 07/18/24 07:31 [place] 0.4 L Current Inpatient Medications Current Inpatient Medications: Current Inpatient Medications Acetaminophen (Acetaminophen 325 Mg Tab) 650 mg PO Q4H PRN PRN Reason: Headache or Minor Fever Stop: 08/11/24 15:56 Last Admin: 07/14/24 21:11 Dose: 650 mg Al Hydrox/Mg Hydrox/Simethicone (Aluminum/Magnesium Susp 30 Ml Udc) 30 ml PO Q4H PRN PRN Reason: GI Upset Stop: 08/11/24 15:56 Amlodipine Besylate (Amlodipine Besylate 5 Mg Tab) 5 mg PO DAILY RADHIKA Stop: 08/12/24 08:59 Last Admin: 07/18/24 08:54 Dose: 5 mg Bismuth Subsalicylate (Bismuth Subsalicylate 262 Mg Chew) 2 tab PO Q30M PRN PRN Reason: Loose Stool/Diarrhea Stop: 08/11/24 15:56 Fish Oil (Lucien-3 (Purified Fish Oil) 1 Gm Cap) 1 cap PO DAILY RADHIKA Stop: 08/12/24 08:59 Last Admin: 07/18/24 08:54 Dose: 1 cap Glucosamine Sulfate (Glucosamine Sulfate 500 Mg Cap) 500 mg PO DAILY RADHIKA Stop: 08/12/24 08:59 Last Admin: 07/18/24 08:54 Dose: 500 mg Hydroxyzine HCl (Hydroxyzine Hcl 25 Mg Tab) 50 mg PO HSZ PRN PRN Reason: Insomnia Stop: 08/11/24 15:56 Hydroxyzine HCl (Hydroxyzine Hcl 25 Mg Tab) 25 mg PO Q4H PRN PRN Reason: Anxiety Stop: 08/11/24 15:56 Lamotrigine (Lamotrigine 25 Mg Tab) 150 mg PO HS RADHIKA; Protocol Stop: 08/12/24 21:59 Last Admin: 07/17/24 21:14 Dose: 150 mg Levothyroxine Sodium (Levothyroxine Sodium 88 Mcg Tablet) 88 mcg PO DAILYBB RADHIKA Stop: 08/12/24 06:29 Last Admin: 07/18/24 08:54 Dose: 88 mcg [place] Carbonate ([place] Carbonate 300 Mg Tab) 300 mg PO PM RADHIKA Stop: 08/13/24 20:59 Last Admin: 07/17/24 21:13 Dose: 300 mg Loperamide HCl (Loperamide Hcl 2 Mg Cap) 2 mg PO DAILY RADHIKA Stop: 08/12/24 08:59 Last Admin: 07/18/24 08:54 Dose: 2 mg Magnesium Hydroxide (Magnesium Hydroxide Susp 30 Ml Udc) 30 ml PO DAILY PRN PRN Reason: Constipation Stop: 08/11/24 15:56 Melatonin (Melatonin 3 Mg Tab) 3 mg PO HSZ PRN PRN Reason: Sleep Stop: 08/11/24 20:16 Last Admin: 07/17/24 21:17 Dose: 3 mg Sodium Chloride (Sodium Chloride 0.65% Na Soln 45 Ml ([place])) 1 - 2 sprays NA PRN PRN PRN Reason: Nasal Dryness/Congestion Stop: 08/11/24 15:56 Timolol Maleate (Timolol Maleate 0.5% Op Soln 5 Ml Btl) 1 drops OPB DAILY RADHIKA Stop: 08/12/24 08:59 Last Admin: 07/18/24 08:54 Dose: 1 drops Vitamin D (Cholecalciferol 25 Mcg (1000 Units) Tab) 25 mcg PO DAILY RADHIKA Stop: 08/12/24 08:59 Last Admin: 07/18/24 08:54 Dose: 25 mcg Mental Health & Subst Abuse Tx Psychiatrist Name of Psychiatrist: [facility] Psychiatry Psychiatrist's Date Of Appointment With Psychiatric Provider: 07/15/24 @1100 with new provider at [facility] Time of Appointment with Psychiatrist: [id number] Psychiatric Appointment Comment: appt on 07/15 rescheduled Cash Applications Analyst Name of Cash Applications Analyst: Behavioral Cash Applications Analyst @[facility] Post Discharge Appointments Primary Care Physician Name Of Family Doctor/PCP: Tracie Meza
--- NOTE | 2024-07-18 13:02 | Electrocardiogram Report ---
Test Reason : Blood Pressure : */* mmHG Vent. Rate : 62 BPM Atrial Rate : 62 BPM P-R Int : 168 ms QRS Dur : 84 ms QT Int : 368 ms P-R-T Axes : 86 -8 96 degrees QTcB Int : 373 ms Atrial-paced rhythm Septal infarct , age undetermined Abnormal ECG When compared with ECG of 12-Jul-2024 11:14, Left anterior fascicular block is no longer Present T wave inversion more evident in Lateral leads Confirmed by Danial Can ([id number]) on 07/18/2024 1:02:01 PM Referred By: REFERRED SELF Confirmed By: Danial Can
--- NOTE | 2024-07-18 14:33 | Cardiology Consultation ---
Date of Consultation July 18, 2024 Assessment & Plan (1) HTN, goal below 130/80: (2) S/P cardiac pacemaker procedure: (3) Depression with suicidal ideation: (4) Bipolar II disorder with seasonal pattern: Plan Patient admitted for recurrent SI and mental health evaluation. She was restarted on lithium this admission which she previously was taking but stopped due to bradycardia. Now she is s/p dual chamber pacemaker implantation in May 2024 Acceptable to resume lithium as there are no concerns regarding symptomatic bradycardia. however lithium interacts with her other antihypertensives. Olmesartan and furosemide discontinued. Amlodipine 5 mg continued. BP borderline elevated this admission in the 140-150/80s Recommend adding carvedilol 3.125 mg BID as there are no interactions with [place] and patient has pacemaker to prevent bradycardia. Titrate dose as needed. Could also increase dose of amlodipine as needed. Patient was agreeable and understanding of the plan. Pacer site is healing well and recent interrogations with appropriate function of device. recent echo with normal LVEF, no significant valvular disease. No further cardiac testing warranted at this time. Case discussed with Dr. Matthews I spent a total of 60 minutes on the date of service in preparation, delivery, and documentation of the care provided to this patient, excluding any time spent in the performance of separately billed services. Hannah Kang PA-C Department of Cardiology, [facility] This chart was completed in part utilizing Speech Voice Recognition Software. Grammatical errors, random word insertions, pronoun errors, and incomplete sentences are an occasional consequence of this system due to software limitations, ambient noise, and hardware issues. Any formal questions or concerns about the content, text, or information contained within the body of this dictation should be directly addressed to the provider for clarification. Supervising Physician Co-Signing Physician Notes I have personally performed a history and physical examination on the patient. I have reviewed the advance practitioner's documentation, and I agree with, and take responsibility for the plan of care. 74-year-old female with bipolar disorder on lithium therapy. Recent pacemaker implanted due to junctional bradycardia. Atrial paced rhythm on ECG. Losartan and lasix discontinued due to potential interaction with lithium therapy. Add carvedilol 3.125 mg twice daily to improve blood pressure control. Consider titration of amlodipine in the future as well. Pacemaker interrogation jono eduled every 3 months via the heart rhythm device clinic at [facility]. No further inpatient cardiac testing or intervention recommended at this time. Cardiology will sign off. Please call with additional concerns/questions. I spent a total of 30 minutes on the date of service in preparation, delivery, and documentation of the care provided to this patient, excluding any time spent in the performance of separately billed services. Garth Matthews DO, [facility] History of Present Illness Reason for Consultation: HTN management Requesting Physician: Dr. Ramirez Attending Physician: Dr. Matthews History of Present Illness Patient is a 74 year old female admitted earlier this week for SI, major depressive disorder, bipolar. She had previously been on [place] which she tolerated and did well on in terms of her mental health stabilization. However, lithium was discontinued several years ago due to bradycardia. Last month, patient admitted to [facility] with dizziness and symptomatic bradycardia and junctional rhythm. She ultimately underwent dual chamber pacemaker implantation on 05/[address] Desai with good results. Pacer site healing well. Recent device interrogation and wound check with appropriate findings. Upon admission for mental health evaluation, it was recommended she resume [place] now that she has a pacemaker in situ. However lithium also interacts with other antihypertensive therapies such as diuretics and ARB. She was on olmesartan and furosemide. Both of these medications were held on admission. She is also taking amlodipine and it was felt this was acceptable to continue without interactions. Cardiology consulted for further recommendations on antihypertensive therapy. At time of consult, patient removed from group therapy session. She reports feeling well and much better on the lithium. She denies acute cardiac complaints. No chest pain, dyspnea, palpitations, dizziness. Pacer site is healing well. Allergies Allergy/AdvReac Type Severity Reaction Status Date / Time griseofulvin Allergy Intermediate Rash Verified 05/27/24 08:39 Home Medications Medication Instructions Recorded Confirmed Type glucos sul [id number] See Rx Instructions .Route .COMPLEX 10/22/18 07/12/24 History [Glucosamine Chondroitin] cholecalciferol (vitamin D3) 1,000 units PO DAILY 02/14/20 07/12/24 History furosemide 20 mg tablet 20 mg PO QAM 05/24/24 07/12/24 History lamotrigine 200 mg tablet 200 mg PO HS 05/24/24 07/12/24 History levothyroxine 88 mcg tablet 88 mcg PO QAM 05/24/24 07/12/24 History melatonin 1 mg tablet 1 mg PO HS PRN Sleep 05/24/24 07/12/24 History olmesartan 40 mg tablet 40 mg PO DAILY 05/24/24 07/12/24 History timolol maleate 0.5 % eye drops 2 drp ophthalmic (eye) DAILY 05/24/24 07/12/24 History Fish Oil 500 mg PO DAILY 07/12/24 07/12/24 History Lomotil 2 mg PO DAILY 07/12/24 History Norvasc 5 mg PO DAILY 07/12/24 07/12/24 History Vraylar 1.5 mg PO DAILY 07/12/24 07/12/24 History divalproex 250 mg PO DAILY 07/12/24 07/12/24 History Patient History Medical History History of gastrointestinal procedure Moderate cervical dysplasia Surgical History H/O wrist surgery Excision of ganglion History of rectal surgery S/P LEEP (loop electrosurgical excision procedure) Family History Mother Bipolar disorder Alzheimer disease Renal failure Social History Smoking Status: Never smoker Do You Dip or Chew Tobacco: No; Hx Alcohol Use: Yes Hx Substance Use: No Preferred Language: Serbian Communication Ability: Effective Creative/Art Director Required: No Beliefs That Will Affect Care: Temple Temple Beliefs: Yarsanism Current Living Situation: Spouse Feels Safe at Home: Yes and Hesitant to Answer Gender Identity: Female Assistive Devices: None Review of Systems Review of Systems: All systems reviewed & are unremarkable except as noted in HPI & below Physical Exam Constitutional: WD/WN, vitals as above average body habitus; no acute distress Neck: trachea midline, no thyromegaly normal visual inspection Respiratory: normal respiratory effort Auscultation: lungs clear to auscultation bilaterally Cardiovascular: Rate/Rhythm: regular rate and regular rhythm Heart Sounds: normal S1, normal S2 and + murmur (II/ systolic murmur) Gastrointestinal (Abdomen): normal bowel sounds, soft, nontender, no hepatosplenomegaly Skin: no rashes, warm and dry Neurologic: PERRL, EOMI, accommodation nl, no face palsy, no dysarthria Results & Data Vital Signs (Past 12 Hours) Vital Signs Temp Pulse Resp BP 07/18/24 06:24 61 152/85 H 07/18/24 06:24 36.8 C 62 16 140/78 Laboratory Results Laboratory Results WBC 9.05 K/ul (4.8-10.8) 07/12/24 10:28 RBC 4.64 M/uL (4.20-5.40) 07/12/24 10:28 Hgb 13.5 g/dl (12.0-16.0) 07/12/24 10:28 Hct 41.2 % (37.0-47.0) 07/12/24 10: MCV 88.8 fL (80.0-100.0) 07/12/24 10: MCH 29.1 pg (25.0-34.0) 07/12/24 10: MCHC 32.8 g/dL (32.0-36.0) 07/12/24 10:28 RDW Std Deviation 37.4 fL (36.4-46.3) 07/12/24 10:28 RDW Coeff of Mauricio 11.7 % (11.5-14.5) 07/12/24 10: Plt Count 265 K/uL (130-400) 07/12/24 10:28 MPV 8.7 fL (9.4-12.4) L 07/12/24 10:28 Immature Gran % (Auto) 0.4 % 07/12/24 10:28 Neut % (Auto) 80.4 % 07/12/24 10:28 Lymph % (Auto) 13.1 % 07/12/24 10:28 [place] % (Auto) 5.5 % 07/12/24 10:28 Eos % (Auto) 0.3 % 07/12/24 10:28 Baso % (Auto) 0.3 % 07/12/24 10:28 Neut # (Auto) 7.26 K/uL (1.40-6.50) H 07/12/24 10:28 Lymph # (Auto) 1.19 K/uL (1.20-3.40) L 07/12/24 10:28 [place] # (Auto) 0.50 K/uL (0.11-0.59) 07/12/24 10:28 Eos # (Auto) 0.03 K/uL (0.00-0.50) 07/12/24 10:28 Baso # (Auto) 0.03 K/uL (0.00-0.20) 07/12/24 10:28 Immature Gran # (Auto) 0.04 K/uL (0.01-0.20) 07/12/24 10:28 Sodium 137 mmol/L (136-145) 07/12/24 10:28 Potassium 4.0 mmol/L (3.5-5.1) 07/12/24 10:28 Chloride 100 mmol/L (98-107) 07/12/24 10:28 Carbon Dioxide 32 mmol/L (21-32) 07/12/24 10:28 Anion Gap 5 (3-11) 07/12/24 10:28 BUN 16 mg/dl (6-23) 07/12/24 10:28 Creatinine 1.17 mg/dl (0.6-1.2) 07/12/24 10:28 Est Cr Clr Drug Dosing 34.0 ml/min 07/12/24 10:28 eGFR 49.27 07/12/24 10:28 BUN/Creatinine Ratio 13.7 (10-20) 07/12/24 10:28 Glucose 85 mg/dl (70-99(Fasting)) 07/12/24 10:28 Calcium 10.6 mg/dl (8.6-10.3) H 07/12/24 10:28 Total Bilirubin 0.4 mg/dl (0.2-1.0) 07/12/24 10:28 AST 23 U/L (13-39) 07/12/24 10:28 ALT 19 U/L (7-52) 07/12/24 10:28 Alkaline Phosphatase 99 U/L (34-104) 07/12/24 10:28 Total Protein 7.8 gm/dl (6.0-8.3) 07/12/24 10:28 Albumin 4.7 gm/dl (3.4-5.0) 07/12/24 10:28 Globulin 3.1 gm/dl (2.5-4.0) 07/12/24 10:28 Albumin/Globulin Ratio 1.5 (0.9-2) 07/12/24 10:28 TSH 1.475 uIu/ml (0.300-4.500) 07/12/24 10:28 Urine Color Yellow 07/12/24 10:28 Urine Appearance Clear (Clear) 07/12/24 10:28 Urine pH 6.5 (4.5-7.5) 07/12/24 10:28 Ur Specific [place] 1.007 (1.000-1.030) 07/12/24 10:28 Urine Protein Negative (Negative) 07/12/24 10:28 Urine Glucose (UA) Negative (Negative) 07/12/24 10:28 Urine Ketones Negative (Negative) 07/12/24 10: Urine Blood Negative (Negative) 07/12/24 10:28 Urine Nitrite Negative (Negative) 07/12/24 10:28 Urine Bilirubin Negative (Negative) 07/12/24 10:28 Urine Urobilinogen Negative (Negative) 07/12/24 10:28 Ur Leukocyte Esterase Trace (Negative) H 07/12/24 10:28 Urine WBC (Auto) 0-5 /hpf (0-5) 07/12/24 10:28 Urine RBC (Auto) 0-2 /hpf (0-2) 07/12/24 10:28 U Hyaline Cast (Auto) 0-2 /lpf (0-2) 07/12/24 10:28 U Epithel Cells (Auto) 0-2 /hpf (0-2) 07/12/24 10:28 Urine Bacteria (Auto) None Seen (None Seen) 07/12/24 10:28 Salicylates < 3.0 mg/dl (3.0-30) L 07/12/24 10:28 Urine Opiates Screen Neg (Neg) 07/12/24 10:28 Ur Methadone, Qual Neg (Neg) 07/12/24 10:28 Urine Fentanyl Screen Neg (Neg) 07/12/24 10:28 Acetaminophen < 3 ug/ml (10-30) L 07/12/24 10:28 Urine Barbiturates Neg (Neg) 07/12/24 10:28 Valproic Acid < 10 mcg/ml (50-100) L 07/12/24 10:28 Ur Phencyclidine (PCP) Neg (Neg) 07/12/24 10:28 U Amphetamin/Meth Scrn Neg (Neg) 07/12/24 10:28 MDMA (Ecstasy) Screen Neg (Neg) 07/12/24 10:28 U Benzodiazepines Scrn Neg (Neg) 07/12/24 10:28 [place] 0.4 mmol/L (0.6-1.2) L 07/18/24 07:31 Ur Cocaine Metabolite Neg (Neg) 07/12/24 10:28 U Marijuana (THC) Screen Neg (Neg) 07/12/24 10:28 Ethyl Alcohol mg/dL < 10.0 mg/dl (<10.0) 07/12/24 10:28 SARS-CoV-2, RNA, NAAT NEGATIVE (NEGATIVE) 07/12/24 10:28 Diagnostic Findings EKG on 07/12/24 at 11:14 AM: Atrial paced, ventricular sensed rhythm Left axis deviation no acute changes QT/QTc 412 ms EKG on 07/18/24: Atrial paced, ventricular sensed rhythm QT/QTc 36//373 ms Echo report reviewed from May 2024: Normal LVEF 55-60% Normal wall motion Mild aortic sclerosis without stenosis Medications Administered Current Inpatient Medications Acetaminophen (Acetaminophen 325 Mg Tab) 650 mg PO Q4H PRN PRN Reason: Headache or Minor Fever Stop: 08/11/24 15:56 Last Admin: 07/14/24 21:11 Dose: 650 mg Al Hydrox/Mg Hydrox/Simethicone (Aluminum/Magnesium Susp 30 Ml Udc) 30 ml PO Q4H PRN PRN Reason: GI Upset Stop: 08/11/24 15:56 Amlodipine Besylate (Amlodipine Besylate 5 Mg Tab) 5 mg PO DAILY [facility] Stop: 08/12/24 08:59 Last Admin: 07/18/24 08:54 Dose: 5 mg Bismuth Subsalicylate (Bismuth Subsalicylate 262 Mg Chew) 2 tab PO Q30M PRN PRN Reason: Loose Stool/Diarrhea Stop: 08/11/24 15:56 Carvedilol (Carvedilol 3.125 Mg Tab) 3.125 mg PO BIDM [facility] Stop: 08/17/24 17:44 Fish Oil (Sears-3 (Purified Fish Oil) 1 Gm Cap) 1 cap PO DAILY [facility] Stop: 08/12/24 08:59 Last Admin: 07/18/24 08:54 Dose: 1 cap Glucosamine Sulfate (Glucosamine Sulfate 500 Mg Cap) 500 mg PO DAILY JONO Stop: 08/12/24 08:59 Last Admin: 07/18/24 08:54 Dose: 500 mg Hydroxyzine HCl (Hydroxyzine Hcl 25 Mg Tab) 50 mg PO HSZ PRN PRN Reason: Insomnia Stop: 08/11/24 15:56 Hydroxyzine HCl (Hydroxyzine Hcl 25 Mg Tab) 25 mg PO Q4H PRN PRN Reason: Anxiety Stop: 08/11/24 15:56 Lamotrigine (Lamotrigine 25 Mg Tab) 150 mg PO HS JONO; Protocol Stop: 08/12/24 21:59 Last Admin: 07/17/24 21:14 Dose: 150 mg Levothyroxine Sodium (Levothyroxine Sodium 88 Mcg Tablet) 88 mcg PO DAILYBB JONO Stop: 08/12/24 06:29 Last Admin: 07/18/24 08:54 Dose: 88 mcg [place] Carbonate ([place] Carbonate 300 Mg Tab) 300 mg PO PM JONO Stop: 08/13/24 20:59 Last Admin: 07/17/24 21:13 Dose: 300 mg Loperamide HCl (Loperamide Hcl 2 Mg Cap) 2 mg PO DAILY JONO Stop: 08/12/24 08:59 Last Admin: 07/18/24 08:54 Dose: 2 mg Magnesium Hydroxide (Magnesium Hydroxide Susp 30 Ml Udc) 30 ml PO DAILY PRN PRN Reason: Constipation Stop: 08/11/24 15:56 Melatonin (Melatonin 3 Mg Tab) 3 mg PO HSZ PRN PRN Reason: Sleep Stop: 08/11/24 20:16 Last Admin: 07/17/24 21:17 Dose: 3 mg Sodium Chloride (Sodium Chloride 0.65% Na Soln 45 Ml ([place])) 1 - 2 sprays NA PRN PRN PRN Reason: Nasal Dryness/Congestion Stop: 08/11/24 15:56 Timolol Maleate (Timolol Maleate 0.5% Op Soln 5 Ml Btl) 1 drops OPB DAILY JONO Stop: 08/12/24 08:59 Last Admin: 07/18/24 08:54 Dose: 1 drops Vitamin D (Cholecalciferol 25 Mcg (1000 Units) Tab) 25 mcg PO DAILY JONO Stop: 08/12/24 08:59 Last Admin: 07/18/24 08:54 Dose: 25 mcg
[2024-07-18] MEDS: carvediloL 3.125 MG TAB PO SCH (18:07)
[2024-07-18] MEDS: LITHIUM CARBONATE 300 MG TAB PO SCH (21:03)
--- NOTE | 2024-07-19 15:02 | Psychiatric Progress Note ---
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 Diagnostically consistent with bipolar disorder major depressive episode. She reports worsening depressive symptoms since January 2024, including now intensified suicidal ideation. Recent medication trials have been ineffective. A: Today we clarified her past depression symptoms and hypomania/isabella episodes. Reviewed her mood disorder questionnaire. Patient tends to have difficulty communicating depression symptoms however was able to state clear deficits in function. Appreciate Jose Miguel from cardiology, safe to titrate lithium and hypertension medications adjusted. We will up titrate lithium and complete follow-up levels in 2 to 3 days. Overall, I spent a total of 40 minutes on this case including meeting with the patient, reviewing the chart, nursing report, orders, and documentation. (1) Bipolar disorder with severe depression: (2) S/P cardiac pacemaker procedure: (3) Coronary atherosclerosis of [place] coronary artery: (4) HTN, goal below 130/80: Plan 07/19/2024: Increase lithium to 450 mg at bedtime 07/18/24: Consult cardiology 07/17/2024: -Repeat EKG and trough lithium level 07/16/2024: -Continue current medications and tx plan 07/15/2024: -[place] level tomorrow AM, consider dose adjustment based on that 07/14/2024: -Continue current medications and tx plan 07/13/2024: The patient was admitted to the [facility] ([facility] mental health unit) on q15 min checks (behavioral with suicide precautions) for safety. The patient will participate in group, recreational, and milieu therapies and will be offered additional individual and family sessions as clinically appropriate. -Start [place] 300mg HS (goal of keeping at very low dose to minimize risks) -Discontinue Vraylar -Discontinue Lasix, Cozaar -Decrease Lamictal from 200mg HS to 150mg HS -Continue amlodipine (monitor closely as can increase risk for lithium toxicity) -Continue to monitor BP closely especially with discontinuation of two anti- hypertensives for initiation of [place] -[place] level in 2-3 days (sooner than normal due to amlodipine use and her age) -Plan for EKG in 2-3 days to ensure no significant changes with [place] initiation -Continue to discuss options for increased outpatient support including therapy referrals, potentially may benefit from psychiatry within [facility] for easier care coordination among 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 Assets Strengths: supportive relationships, willing to get treatment Needs: safety and stabilization, medication adjustment, additional coping skills, increased outpatient services Suicide Risk Level Suicide Risk Level: Moderate (q15 min suicide checks) (severe depression with SI with plan prior to admission but mood improving, feels safe in the hospital and feels able to ask for support if needed) Suicide Risk Level Comments: Risk Factors Assessment Male: No : Yes Do You Have Access To A Gun?: No ( has handgun, but only he is able to access safe that where located) Health Problems: Yes Mental Health Diagnoses: Yes Substance Use Disorders: No Previous Attempt: Yes Family History of Suicide: No Previous Psychiatric Hospitalization: No Hopelessness: Yes Protective Factors Assessment Mandaeism Beliefs: Yes : Yes 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 Chief Complaint Depression Review of Systems Sleep Information Total Hours of Sleep: 6 Meal Information Percent Meal Consumed - Breakfast: 100 Percent Meal Consumed - Lunch: 100 Percent Meal Consumed - Dinner: 100 Subjective Subjective Patient was seen & assessed and interval progress reviewed with treatment team nursing and social work Patient reports past episode where she was shopping excessively fried and she did not need and was a lot more friendlier with strangers. At that time her mood was good. More recently reports having a hopeless mood and feeling there is no way out. During that time she reports that simple tasks were difficult to complete, was more tremulous, had difficulty getting out of bed in the morning, had a lack of motivation to complete activities, was more forgetful, ruminated more about small problems, woke up earlier than normal, tended to isolate and did not want social interaction, and had difficulty planning her meals. Reports past stability on lithium and controlled the symptoms. Had a good conversation with cardiology. Physical Exam Mental Examination Appearance: Well Groomed Eye Contact: Maintains Eye Contact Motor Behavior: Unremarkable Speech: Normal Mood: Euthymic and Calm Affect: Constricted Thought Process: Intact Hallucinations: None Insight: Fair Judgement: Good Vital Signs (Past 24 Hours) Last Vital Signs Temp 36.8 C 07/19/24 06:24 Pulse 61 07/19/24 06:24 Resp 16 07/19/24 06:24 BP 130/79 07/19/24 06:24 Pulse Ox 99 07/12/24 16:05 O2 Del Method Room Air 07/12/24 16:05 Results & Data ([facility]) Current Inpatient Medications Current Inpatient Medications: Current Inpatient Medications Acetaminophen (Acetaminophen 325 Mg Tab) 650 mg PO Q4H PRN PRN Reason: Headache or Minor Fever Stop: 08/11/24 15:56 Last Admin: 07/14/24 21:11 Dose: 650 mg Al Hydrox/Mg Hydrox/Simethicone (Aluminum/Magnesium Susp 30 Ml Udc) 30 ml PO Q4H PRN PRN Reason: GI Upset Stop: 08/11/24 15:56 Amlodipine Besylate (Amlodipine Besylate 5 Mg Tab) 5 mg PO DAILY RADHIKA Stop: 08/12/24 08:59 Last Admin: 07/19/24 08:39 Dose: 5 mg Bismuth Subsalicylate (Bismuth Subsalicylate 262 Mg Chew) 2 tab PO Q30M PRN PRN Reason: Loose Stool/Diarrhea Stop: 08/11/24 15:56 Carvedilol (Carvedilol 3.125 Mg Tab) 3.125 mg PO BIDM RADHIKA Stop: 08/17/24 17:44 Last Admin: 07/19/24 08:40 Dose: 3.125 mg Fish Oil ([place]-3 (Purified Fish Oil) 1 Gm Cap) 1 cap PO DAILY RADHIKA Stop: 08/12/24 08:59 Last Admin: 07/19/24 08:40 Dose: 1 cap Glucosamine Sulfate (Glucosamine Sulfate 500 Mg Cap) 500 mg PO DAILY RADHIKA Stop: 08/12/24 08:59 Last Admin: 07/19/24 08:40 Dose: 500 mg Hydroxyzine HCl (Hydroxyzine Hcl 25 Mg Tab) 50 mg PO HSZ PRN PRN Reason: Insomnia Stop: 08/11/24 15:56 Hydroxyzine HCl (Hydroxyzine Hcl 25 Mg Tab) 25 mg PO Q4H PRN PRN Reason: Anxiety Stop: 08/11/24 15:56 Lamotrigine (Lamotrigine 25 Mg Tab) 150 mg PO HS RADHIKA; Protocol Stop: 08/12/24 21:59 Last Admin: 07/18/24 21:04 Dose: 150 mg Levothyroxine Sodium (Levothyroxine Sodium 88 Mcg Tablet) 88 mcg PO DAILYBB RADHIKA Stop: 08/12/24 06:29 Last Admin: 07/19/24 07:46 Dose: 88 mcg [place] Carbonate ([place] Carbonate 300 Mg Tab) 450 mg PO PM RADHIKA Stop: 08/17/24 20:59 Last Admin: 07/18/24 21:03 Dose: 450 mg Loperamide HCl (Loperamide Hcl 2 Mg Cap) 2 mg PO DAILY RADHIKA Stop: 08/12/24 08:59 Last Admin: 07/19/24 10:11 Dose: Not Given Magnesium Hydroxide (Magnesium Hydroxide Susp 30 Ml Udc) 30 ml PO DAILY PRN PRN Reason: Constipation Stop: 08/11/24 15:56 Melatonin (Melatonin 3 Mg Tab) 3 mg PO HSZ PRN PRN Reason: Sleep Stop: 08/11/24 20:16 Last Admin: 07/18/24 22:38 Dose: 3 mg Sodium Chloride (Sodium Chloride 0.65% Na Soln 45 Ml ([place])) 1 - 2 sprays NA PRN PRN PRN Reason: Nasal Dryness/Congestion Stop: 08/11/24 15:56 Timolol Maleate (Timolol Maleate 0.5% Op Soln 5 Ml Btl) 1 drops OPB DAILY RADHIKA Stop: 08/12/24 08:59 Last Admin: 07/19/24 07:47 Dose: 1 drops Vitamin D (Cholecalciferol 25 Mcg (1000 Units) Tab) 25 mcg PO DAILY RADHIKA Stop: 08/12/24 08:59 Last Admin: 07/19/24 08:40 Dose: 25 mcg Mental Health & Subst Abuse Tx Psychiatrist Name of Psychiatrist: Trey De Luna Psychiatrist's Date Of Appointment With Psychiatric Provider: 07/25/24 Time of Appointment with Psychiatrist: 1230 Psychiatric Appointment Comment: appt on 07/15 rescheduled Therapist Name of Therapist: Edita Perez. Therapist's Date of Therapist Appointment: 09/18/24 Time of Therapist Appointment: 1 PM Therapy Appointment Comment: First appointment is one hour and $125/ per session. Therapist Release of Information: Obtained, Reviewed and Signed Afloat Cryptologic Manager Name of Afloat Cryptologic Manager: . Post Discharge Appointments Primary Care Physician Name Of Family Doctor/PCP: Tracie Meza Provider Appointment Comment: Follow up as needed Contact Information Discharge Discharge Address: [address] [place] [address], [place] [address]
--- NOTE | 2024-07-20 14:40 | Psychiatric Progress Note ---
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 Diagnostically consistent with bipolar disorder major depressive episode. She reports worsening depressive symptoms since January 2024, including now intensified suicidal ideation. Recent medication trials have been ineffective. A: Patient presenting in good spirits with stable sleep and no significant anxiety. Plan to get repeat EKG and lithium level tomorrow morning. Overall, I spent a total of 40 minutes on this case including meeting with the patient, reviewing the chart, nursing report, orders, and documentation. (1) Bipolar disorder with severe depression: (2) S/P cardiac pacemaker procedure: (3) Coronary atherosclerosis of [place] coronary artery: (4) HTN, goal below 130/80: Plan 07/20/2024: Repeat EKG and lithium level tomorrow a.m. 07/19/2024: Increase lithium to 450 mg at bedtime 07/18/24: Consult cardiology 07/17/2024: -Repeat EKG and trough lithium level 07/16/2024: -Continue current medications and tx plan 07/15/2024: -[place] level tomorrow AM, consider dose adjustment based on that 07/14/2024: -Continue current medications and tx plan 07/13/2024: The patient was admitted to the [facility] ([facility] mental health unit) on q15 min checks (behavioral with suicide precautions) for safety. The patient will participate in group, recreational, and milieu therapies and will be offered additional individual and family sessions as clinically appropriate. -Start [place] 300mg HS (goal of keeping at very low dose to minimize risks) -Discontinue Vraylar -Discontinue Lasix, Cozaar -Decrease Lamictal from 200mg HS to 150mg HS -Continue amlodipine (monitor closely as can increase risk for lithium toxicity) -Continue to monitor BP closely especially with discontinuation of two anti- hypertensives for initiation of [place] -[place] level in 2-3 days (sooner than normal due to amlodipine use and her age) -Plan for EKG in 2-3 days to ensure no significant changes with [place] initiation -Continue to discuss options for increased outpatient support including therapy referrals, potentially may benefit from psychiatry within [facility] for easier care coordination 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 Strengths: supportive relationships, willing to get treatment Needs: safety and stabilization, medication adjustment, additional coping skills, increased outpatient services Suicide Risk Level Suicide Risk Level: Moderate (q15 min suicide checks) (severe depression with SI with plan prior to admission but mood improving, feels safe in the hospital and feels able to ask for support if needed) Suicide Risk Level Comments: Risk Factors Assessment Male: No : Yes Do You Have Access To A Gun?: No ( has handgun, but only he is able to access safe that where located) Health Problems: Yes Mental Health Diagnoses: Yes Substance Use Disorders: No Previous Attempt: Yes Family History of Suicide: No Previous Psychiatric Hospitalization: No Hopelessness: Yes Protective Factors Assessment Sikh Beliefs: Yes : Yes 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 Chief Complaint Depression Review of Systems Sleep Information Total Hours of Sleep: 6.5 Sleep Comments: melatonin Meal Information Percent Meal Consumed - Breakfast: 100 Percent Meal Consumed - Lunch: 100 Percent Meal Consumed - Dinner: 100 Subjective Subjective Patient was seen & assessed and interval progress reviewed with treatment team nursing and social work Patient slept 6.5 hours. Had bowel movement. Vital signs stable. She denies having any tremors, blurry vision, lightheadedness, dizziness, confusion. She denies SI. Reports overall good mood and appears cheerful. Physical Exam Mental Examination Appearance: Well Groomed Eye Contact: Maintains Eye Contact Motor Behavior: Unremarkable Speech: Normal Mood: Euthymic and Calm Affect: Constricted Thought Process: Intact Hallucinations: None Insight: Fair Judgement: Good Vital Signs (Past 24 Hours) Last Vital Signs Temp 36.6 C 07/20/24 06:11 Pulse 61 07/20/24 06:13 Resp 16 07/20/24 06:11 BP 115/73 07/20/24 06:13 Pulse Ox 98 07/20/24 06:11 O2 Del Method Room Air 07/20/24 06:11 Results & Data ([facility]) Current Inpatient Medications Current Inpatient Medications: Current Inpatient Medications Acetaminophen (Acetaminophen 325 Mg Tab) 650 mg PO Q4H PRN PRN Reason: Headache or Minor Fever Stop: 08/11/24 15:56 Last Admin: 07/14/24 21:11 Dose: 650 mg Al Hydrox/Mg Hydrox/Simethicone (Aluminum/Magnesium Susp 30 Ml Udc) 30 ml PO Q4H PRN PRN Reason: GI Upset Stop: 08/11/24 15:56 Amlodipine Besylate (Amlodipine Besylate 5 Mg Tab) 5 mg PO DAILY RADHIKA Stop: 08/12/24 08:59 Last Admin: 07/20/24 08:49 Dose: 5 mg Bismuth Subsalicylate (Bismuth Subsalicylate 262 Mg Chew) 2 tab PO Q30M PRN PRN Reason: Loose Stool/Diarrhea Stop: 08/11/24 15:56 Carvedilol (Carvedilol 3.125 Mg Tab) 3.125 mg PO BIDM RADHIKA Stop: 08/17/24 17:44 Last Admin: 07/20/24 08:48 Dose: 3.125 mg Fish Oil ([place]-3 (Purified Fish Oil) 1 Gm Cap) 1 cap PO DAILY RADHIKA Stop: 08/12/24 08:59 Last Admin: 07/20/24 08:49 Dose: 1 cap Glucosamine Sulfate (Glucosamine Sulfate 500 Mg Cap) 500 mg PO DAILY RADHIKA Stop: 08/12/24 08:59 Last Admin: 07/20/24 08:49 Dose: 500 mg Hydroxyzine HCl (Hydroxyzine Hcl 25 Mg Tab) 50 mg PO HSZ PRN PRN Reason: Insomnia Stop: 08/11/24 15:56 Hydroxyzine HCl (Hydroxyzine Hcl 25 Mg Tab) 25 mg PO Q4H PRN PRN Reason: Anxiety Stop: 08/11/24 15:56 Lamotrigine (Lamotrigine 25 Mg Tab) 150 mg PO HS ARDHIKA; Protocol Stop: 08/12/24 21:59 Last Admin: 07/19/24 21:39 Dose: 150 mg Levothyroxine Sodium (Levothyroxine Sodium 88 Mcg Tablet) 88 mcg PO DAILYBB RADHIKA Stop: 08/12/24 06:29 Last Admin: 07/20/24 08:18 Dose: 88 mcg [place] Carbonate ([place] Carbonate 300 Mg Tab) 450 mg PO PM RADHIKA Stop: 08/17/24 20:59 Last Admin: 07/19/24 21:39 Dose: 450 mg Loperamide HCl (Loperamide Hcl 2 Mg Cap) 2 mg PO DAILY RADHIKA Stop: 08/12/24 08:59 Last Admin: 07/20/24 09:23 Dose: 2 mg Magnesium Hydroxide (Magnesium Hydroxide Susp 30 Ml Udc) 30 ml PO DAILY PRN PRN Reason: Constipation Stop: 08/11/24 15:56 Melatonin (Melatonin 3 Mg Tab) 3 mg PO HSZ PRN PRN Reason: Sleep Stop: 08/11/24 20:16 Last Admin: 07/19/24 22:17 Dose: 3 mg Sodium Chloride (Sodium Chloride 0.65% Na Soln 45 Ml ([place])) 1 - 2 sprays NA PRN PRN PRN Reason: Nasal Dryness/Congestion Stop: 08/11/24 15:56 Timolol Maleate (Timolol Maleate 0.5% Op Soln 5 Ml Btl) 1 drops OPB DAILY RADHIKA Stop: 08/12/24 08:59 Last Admin: 07/20/24 08:20 Dose: 1 drops Vitamin D (Cholecalciferol 25 Mcg (1000 Units) Tab) 25 mcg PO DAILY RADHIKA Stop: 08/12/24 08:59 Last Admin: 07/20/24 08:48 Dose: 25 mcg Mental Health & Subst Abuse Tx Psychiatrist Name of Psychiatrist: Trey De Luna Psychiatrist's Date Of Appointment With Psychiatric Provider: 07/25/24 Time of Appointment with Psychiatrist: 1230 Psychiatric Appointment Comment: appt on 07/15 rescheduled Therapist Name of Therapist: Edita Tesfaye Therapist's Date of Therapist Appointment: 09/18/24 Time of Therapist Appointment: 1 PM Therapy Appointment Comment: First appointment is one hour and $125/ per session. Therapist Release of Information: Obtained, Reviewed and Signed Dewaxer Name of Dewaxer: . Post Discharge Appointments Primary Care Physician Name Of Family Doctor/PCP: Tracie Meza Provider Appointment Comment: Follow up as needed Contact Information Discharge Discharge Address: [address] [place] [address], [place] [address]
[2024-07-21 06:19] VITALS: BP 138/78; PULSE 63; TEMP 98; O2SAT 100
--- NOTE | 2024-07-21 10:25 | Discharge Summary ---
Date of Service July 21, 2024 History of Present Illness Ruth presents for psychiatric admission for worsening depression and SI with plan of carbon monoxide poisoning in the context of some chronic psychosocial stressors including isolation from family and recently changed churches due to her 's interpersonal conflict with various family members/hinduism leaders but without any acute precipitating events. She reports her depression came on farily abruptly and has continued to worsen after RSV infection in January and a short prednisone course and "it was shortly thereafter that things crashed". She reports "just being really down", low motivation, low confidence, struggling with what to do with herself, anhedonia, feelings of hopelessness, helplessness, energy level has decreased but she forces herself to maintain her routine, appetite low though she eats because she knows she should. Sleep patterns are consistent. Has been having suicidal thoughts since January but "waxed and waned". Recently increased after being told Five Corners couldn't be started by her outpatient psychiatric provider as they felt uncomfortable starting this. Follwing this she started to have increased SI and thought about dying by CO poisoning. She asked her to hide the car keys so she wouldn't act on these thoughts. However she then found herself looking for the car keys and at that point told her he needed to bring her to the hospital as she felt unable to remain safe. History of Five Corners of 300mg-450mg for >20 years with excellent mood benefits, had no episodes of depression during this time and felt she got her life back. She stopped in 2017 or 2019 after cardiology recommendation due to junctional rhythm seen on EKG. She has continued to have periods of bradycardia and junctional rhythm despite being off Five Corners for many years with recent pacemaker placement. She has tried several medications since discontinuing lithium in 2019, including Lamictal, Prozac, Abilify, and most recently Vraylar, with limited effectiveness. She expresses a strong desire to restart lithium, which she reports worked well for her in the past, giving her "20 good years" of mood stability. She is now willing to accept potential risks with Five Corners given the severity of her current depression and feels that this is the only medication that has ever worked for her depression. In the past she responded quickly to lithium often feeling better within just 5-6 days. Outpatient providers have bee n reluctant to restart her on Five Corners, despite her ongoing depressive episode, due to cardiac concerns including recent pacemaker placement last month due to bradycardia. She is currently taking lamictal 200mg HS (has been on this since stopping Five Corners, but hasn't helped current depressive episode), Vraylar (1.5mg daily, started three days ago), melatonin at HS and recently prescribed Depakote but did not start this. Psychiatric ROS notable for no current nor history of symptoms of psychosis, PTSD, OCD nor eating disorder. History of likely hypomania with buying more items but never with extended periods without sleep. Significant family history of bipolar disorder type I in her mother and multiple family members have responded very well to Five Corners for depression/mood stabilization. Physical Exam Mental Examination Appearance: Well Groomed Eye Contact: Maintains Eye Contact Motor Behavior: Unremarkable Speech: Normal Mood: Euthymic and Calm Affect: Constricted Thought Process: Intact Hallucinations: None Insight: Fair Judgement: Good Vital Signs (Past 24 Hours) Last Vital Signs Temp 36.6 C 07/21/24 06:00 Pulse 63 07/21/24 06:18 Resp 16 07/21/24 06:00 BP 138/78 07/21/24 06:18 Pulse Ox 100 07/21/24 06:00 O2 Del Method Room Air 07/21/24 06:00 Principal Diagnosis Bipolar disorder with depression Psychiatric Data See daily stay summary. In short, safety was maintained and the patient was cooperative with care. Medication changes included stopping home furosemide, losartan, cariprazine, decreasing lamotrigine to 150mg PM, initiating and titrating Five Corners to 450mg PM, starting carvedilol and amlodipine for HTN and they tolerated this well. A family session was held and safety plan was completed prior to discharge. Pt initially presented with SI in the context of worsening depression and lack of community support/isolation/marital conflicts. Reports past stability on Five Corners however was d/c d/t associated bradyarrhythmia. Since then has received a dual chamber pace maker, was seen by cardiology this visit who signed off on lithium being titrated, and has tolerated lithium thus far with stable EKG. She endorses an improvement in mood, function, and outlook. Five Corners trough level of 0.7 on d/c day. Day of Discharge Assessment Today the patient voices readiness for discharge. They note improvement in mood and deny thoughts to harm self or others. Thoughts remain organized and they are improved from admission. There is no evidence of psychosis. They agree to take mediations as prescribed and keep follow-up appointments. They are stable for discharge to outpatient level of care. Overall, I spent a total of 45 minutes with this case including review of chart records, nursing report, review of lab work, direct evaluation of the patient at bedside, counseling the patient, multidisciplinary team meeting, orders, and documentation in the electronic health record. Transition of Care Transition Of Care Record: was reviewed with the patient Advance Directives Advance Directives Information Provided: Yes Advance Directives: No Mental Health Advance Directive: No Advance Directives on File: No Living Will: No Power of Worker'S Compensation Claims Examiner: No Advance Directives Reason:: Declines as Mental Health Visit. 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[place]) Stable Relationships: Yes Supportive Family: Yes Discharge Data Consultations 07/18/24 13:00 Consult Cardiology Routine Lab Results 07/12/24 07/16/24 07/18/24 10:28 08:05 07:31 WBC 9.05 RBC 4.64 Hgb 13.5 Hct 41.2 MCV 88.8 MCH 29.1 MCHC 32.8 RDW Std Deviation 37.4 RDW Coeff of Mauricio 11.7 Plt Count 265 MPV 8.7 L Immature Gran % (Auto) 0.4 Neut % (Auto) 80.4 Lymph % (Auto) 13.1 [place] % (Auto) 5.5 Eos % (Auto) 0.3 Baso % (Auto) 0.3 Neut # (Auto) 7.26 H Lymph # (Auto) 1.19 L [place] # (Auto) 0.50 Eos # (Auto) 0.03 Baso # (Auto) 0.03 Immature Gran # (Auto) 0.04 Sodium 137 Potassium 4.0 Chloride 100 Carbon Dioxide 32 Anion Gap 5 BUN 16 Creatinine 1.17 Est Cr Clr Drug Dosing 34.0 eGFR 49.27 BUN/Creatinine Ratio 13.7 Glucose 85 Calcium 10.6 H Total Bilirubin 0.4 AST 23 ALT 19 Alkaline Phosphatase 99 Total Protein 7.8 Albumin 4.7 Globulin 3.1 Albumin/Globulin Ratio 1.5 TSH 1.475 Urine Color Yellow Urine Appearance Clear Urine pH 6.5 Ur Specific [place] 1.007 Urine Protein Negative Urine Glucose (UA) Negative Urine Ketones Negative Urine Blood Negative Urine Nitrite Negative Urine Bilirubin Negative Urine Urobilinogen Negative Ur Leukocyte Esterase Trace H Urine WBC (Auto) 0-5 Urine RBC (Auto) 0-2 U Hyaline Cast (Auto) 0-2 U Epithel Cells (Auto) 0-2 Urine Bacteria (Auto) None Seen Salicylates < 3.0 L Urine Opiates Screen Neg Ur Methadone, Qual Neg Urine Fentanyl Screen Neg Acetaminophen < 3 L Urine Barbiturates Neg Valproic Acid < 10 L Ur Phencyclidine (PCP) Neg U Amphetamin/Meth Scrn Neg MDMA (Ecstasy) Screen Neg U Benzodiazepines Scrn Neg Five Corners < 0.1 L 0.3 L 0.4 L Ur Cocaine Metabolite Neg U Marijuana (THC) Screen Neg Ethyl Alcohol mg/dL < 10.0 SARS-CoV-2, RNA, NAAT NEGATIVE Hospital Course (1) Bipolar disorder with severe depression: (2) S/P cardiac pacemaker procedure: (3) Coronary atherosclerosis of chilkoot coronary artery: (4) HTN, goal below 130/80: Plan 07/20/2024: Repeat EKG and lithium level tomorrow a.m. 07/19/2024: Increase lithium to 450 mg at bedtime 07/18/24: Consult cardiology 07/17/2024: -Repeat EKG and trough lithium level 07/16/2024: -Continue current medications and tx plan 07/15/2024: -Five Corners level tomorrow AM, consider dose adjustment based on that 07/14/2024: -Continue current medications and tx plan 07/13/2024: [facility] on q15 min checks (behavioral with suicide precautions) for safety. The patient will participate in group, recreational, and milieu therapies and will be offered additional individual and family sessions as clinically appropriate. -Start Five [place] 300mg HS (goal of keeping at very low dose to minimize risks) -Discontinue Vraylar -Discontinue Lasix, Cozaar -Decrease Lamictal from 200mg HS to 150mg HS -Continue amlodipine (monitor closely as can increase risk for lithium toxicity) -Continue to monitor BP closely especially with discontinuation of two anti-hypertensives for initiation of Five Corners -Five [place]ers level in 2-3 days (sooner than normal due to amlodipine use and her age) -Plan for EKG in 2-3 days to ensure no significant changes with Five Corners initiation -Continue to discuss options for increased outpatient support including therapy referrals, potentially may benefit from psychiatry within [facility] for easier care coordination among 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 Therapist Release of Information: Obtained, Reviewed and Signed Brim Molder Name of Brim Molder: . Post Discharge Appointments Primary Care Physician Name Of Family Doctor/PCP: Tracie Meza Provider Appointment Comment: Follow up as needed Contact Information Discharge Discharge Address: [address] [place] [id number] Discharge Plan Discharge Items Patient Disposition: Home - Self-Care Reason For Visit: DEPRESSION Discharge Diagnosis: (1) Bipolar disorder with severe depression: (2) S/P cardiac pacemaker procedure: (3) Coronary atherosclerosis of chilkoot coronary artery: (4) HTN, goal below 130/80: Condition on Discharge: Fair Activity: Resume your previous activity Non-emergency contact: Primary Care Provider, Psychiatrist and Therapist Call non-emergency contact if: you have any medication questions and your symptoms worsen Follow-up/Referrals: Zafar Meza, [Primary Care Provider] - Diet: Regular Addtl Attending Provider Instructions: -Continue Five [place] 450mg in the evening -Continue Lamotrigine 150mg in the evening -Continue Carvedilol 3.125mg twice daily with meals -Continue Amlodipine 5mg daily (If BPs drop below 110/70 consistently, consider stopping amlodipine) -Continue other home medications as listed -Engage in weekly psychotherapy (cognitive behavioral therapy, supportive counseling, goal setting and problem solving) -Find purpose and community (volunteering, connecting with loved ones and friends, etc.) Pending Studies at Discharge: No Stand-Alone Forms: [facility] [employer], Smoking Cessation Medications and DC Order Prescriptions: New carvedilol 3.125 mg Tablet 3.125 mg PO BIDM Qty: 60 0RF lamotrigine 150 mg tablet 150 mg PO PM Qty: 30 0RF lithium carbonate 450 mg tablet extended release 450 mg PO PM Qty: 30 0RF hydroxyzine HCl 25 mg Tablet 25 mg PO DAILY PRN (Reason: anxiety, insomnia) Qty: 30 0RF Continued Norvasc 5 mg PO DAILY Lomotil 2 mg PO DAILY Rx Instructions: take 2 mg po Qam glucos sul [id number] See Rx Instructions .ROUTE .COMPLEX Rx Instructions: glucosamine chondr 1500 complx cholecalciferol (vitamin D3) 1,000 units PO DAILY levothyroxine 88 mcg tablet 88 mcg PO QAM timolol maleate 0.5 % drops 2 drp ophthalmic (eye) DAILY Rx Instructions: one drop in each eye melatonin 1 mg Tablet 1 mg PO HS PRN (Reason: Sleep) Fish Oil 500 mg PO DAILY Discontinued divalproex 250 mg PO DAILY Rx Instructions: is currently ordered but pt. has not started lamotrigine 200 mg tablet 200 mg PO HS furosemide 20 mg tablet 20 mg PO QAM olmesartan 40 mg tablet 40 mg PO DAILY Vraylar 1.5 mg PO DAILY Discharge Orders: Discharge Order (Routine); Ordered 07/21/24 Ordered By: Alexandre Ramirez Admission Data Admit Date/Time: 07/12/24 13:24 Attending Provider: Alexandre Ramirez Admit Provider: Shamika Courtney Primary Care Provider: Zafar Me[place] [address] D/C day mgmt > 30 min Patient Type New History Detailed Exam Detailed Medical Decision Making High Complexity Diagnoses Bipolar disorder with severe depression F31.4 S/P cardiac pacemaker procedure Z95.0 Coronary atherosclerosis of chilkoot coronary artery I25.10 HTN, goal below 130/80 I10
== END 2024-07-21 13:00 | disposition home or self-care (01) | DRG 885 ==
LOC: ED 10:03 → 3S 13:24 → SUATTDRO 13:24 → ED 13:24